=== PATIENT | male | born 1955 | race African-American/Black ===

== ENCOUNTER 2017-03-22 14:02 | Emergency (ER) | payer BC, OTHER ==
[2017-03-22 14:24] VITALS: TEMP 98.5; BMI 36.6
[2017-03-22] MEDS ORDERED: predniSONE 20 MG TABLET (UD) PO ONE (15:48)
[2017-03-22] MEDS ORDERED: IPRATROPIUM BR 0.02% 0.5 MG/2.5 ML VIAL.NEB. NEB ONE ×2 (15:48→16:16)
[2017-03-22] MEDS ORDERED: ALBUTEROL SO4 0.083% IH SOL 2.5 MG/3 ML VIAL.NEB. NEB ONE ×2 (15:48→16:52)
[2017-03-22 16:11] LABS: BASOPHIL 0.7 % (0-2.0); EOSINOPHIL 10.9 % (0-4.5); MCH 29.6 pg (25.7-33.7); MCHC 32.3 g/dl (32.0-35.9); MEAN CELL VOLUME 91.6 fl (80-96); MEAN PLT VOLUME 9.4 fl (7.5-11.1); NEUTROPHILS 49.5 % (42.8-82.8); PLATELET COUNT 157 K/MM3 (134-434); WHITE BLOOD COUNT 4.2 K/mm3 (4.0-10.0)
[2017-03-22] MEDS ORDERED: ALBUTEROL SO4 2.5/IPRATROPIUM 0.5 INH SOL 3 ML VIAL.NEB. NEB ONE (16:16)
[2017-03-22] MEDS ORDERED: predniSONE 10 MG TABLET (UD) ONE (16:16)
[2017-03-22 16:20] LABS: INR 3.48 (0.82-1.09); PROTHROMBIN TIME (PATIENT) 39.3 SEC (9.98-11.88)
[2017-03-22 16:36] LABS: ALBUMIN 3.5 g/dl (3.4-5.0); ANION GAP 10 (8-16); BILIRUBIN,TOTAL 0.6 mg/dL (0.2-1.0); CALCIUM 9.2 mg/dL (8.5-10.1); CO2 26 mmol/L (21-32); COCKROFT - GAULT 142.79; CREATININE 0.9 mg/dL (0.7-1.3); GLUCOSE,RANDOM 92 mg/dL (74-106); MAGNESIUM 2.1 mg/dL (1.8-2.4); SGOT/AST 26 U/L (15-37); SGPT/ALT 30 U/L (12-78); TOT PROT 6.5 g/dl (6.4-8.2)
[2017-03-22 16:40] LABS: ALK PHOS 92 U/L (45-117); TROPONIN I < 0.02 ng/ml (0.00-0.05)
--- NOTE | 2017-03-22 17:15 | PDOC ---
History of Present Illness - General History Source: Patient Exam Limitations: No Limitations <Noel Gayle - Last Filed: 03/22/17 17:22> - General History Source: Patient Exam Limitations: No Limitations - History of Present Illness Initial Comments: 03/22/17 17:39 The patient is a 61 year old male, with a significant past medical history of HTN, HLD, prostate CA, aortic valve replacement 12/2016 (on Coumadin), anemia and asthma who presents to the emergency department with chest congestion and cough for the past 2 weeks. He reports that he has been using albuterol during this time frame, with minimal relief of his symptoms. He states that his cough is dry in nature. The patient denies shortness of breath, headache and dizziness. Denies fever, chills, nausea, vomit, diarrhea and constipation. Allergies: Aspirin, NSAIDS, shrimp, lobsters, crabs Past surgical history: Aortic valve replacement, right total knee replacement Social history: No alcohol, tobacco or drug use reported <Curtis Christiansen - Last Filed: 03/22/17 17:41> - General Chief Complaint: Respiratory Stated Complaint: SOB (ASTHMA) Time Seen by Provider: 03/22/17 15:26 Past History - Past Medical History Anemia: Yes Asthma: Yes Cancer: Yes (prostate) Dementia: No HTN: Yes Hypercholesterolemia: Yes Seizures: No Thyroid Disease: No - Surgical History Neurologic Surgery: No Orthopedic Surgery: Yes (RIGHT TOTAL KNEE 05/12) - Immunization History Immunization Up to Date: Yes - Psycho/Social/Smoking Cessation Hx Anxiety: No Suicidal Ideation: No Smoking Status: No Smoking History: Never smoked Have you smoked in the past 12 months: No Number of Cigarettes Smoked Daily: 0 Information on smoking cessation initiated: No Hx Alcohol Use: No Drug/Substance Use Hx: No Substance Use Type: None Hx Substance Use Treatment: No <Noel Gayle - Last Filed: 03/22/17 17:22> <Curtis Christiansen - Last Filed: 03/22/17 17:41> - Past Medical History Allergies/Adverse Reactions: Allergies Allergy/AdvReac Type Severity Reaction Status Date / Time aspirin Allergy Verified 03/22/17 14:21 NSAIDS (Non-Steroidal Allergy Verified 03/22/17 14:21 Anti-Inflamma crabs Allergy Uncoded 03/22/17 14:21 lobsters Allergy Uncoded 03/22/17 14:21 shrimp Allergy Uncoded 03/22/17 14:21 Home Medications: Ambulatory Orders Atorvastatin Ca [Lipitor] 10 mg PO HS 06/25/14 Tamsulosin HCl [Flomax -] 0.4 mg PO DAILY 10/08/15 Furosemide [Lasix -] 40 mg PO DAILY #30 tablet 06/11/16 Nebivolol [Bystolic -] 10 mg PO DAILY #14 tab 06/11/16 Oxycodone HCl [Roxicodone -] 5 mg PO Q4H PRN #0 tablet MDD 6 tabs 06/11/16 Prednisone [Deltasone -] 40 mg PO BID #6 tablet 06/11/16 Albuterol Sulfate Inhaler - [Ventolin HFA Inhaler -] 1 - 2 inh PO PRN 07/14/16 Budesonide/Formeterol Fumarate [SYMBICORT 160/4.5mcg -] 1 inh PO BID 07/14/16 Albuterol Sulfate Inhaler - [Ventolin HFA Inhaler -] 1 - 2 inh PO Q4H PRN #1 inhaler 03/22/17 Azithromycin 250 mg PO DAILY #4 tablet 03/22/17 Prednisone [Deltasone -] 60 mg PO DAILY #12 tablet 03/22/17 Review of Systems - Review of Systems Able to Perform ROS?: Yes Comments:: 03/22/17 17:40 GENERAL/CONSTITUTIONAL: No fever or chills. No weakness. HEAD, EYES, EARS, NOSE AND THROAT: No change in vision. No ear pain or discharge. No sore throat. CARDIOVASCULAR: No chest pain or shortness of breath RESPIRATORY: (+) Chest congestion, cough. No wheezing, or hemoptysis. GASTROINTESTINAL: No nausea, vomiting, diarrhea or constipation. GENITOURINARY: No dysuria, frequency, or change in urination. MUSCULOSKELETAL: No joint or muscle swelling or pain. No neck or back pain. SKIN: No rash NEUROLOGIC: No headache, vertigo, loss of consciousness, or change in strength/ sensation. ENDOCRINE: No increased thirst. No abnormal weight change HEMATOLOGIC/LYMPHATIC: No anemia, easy bleeding, or history of blood clots. ALLERGIC/IMMUNOLOGIC: No hives or skin allergy. <Curtis Christiansen - Last Filed: 03/22/17 17:41> *Physical Exam - Vital Signs Last Vital Signs Temp Pulse Resp BP Pulse Ox 98.5 F 83 18 152/94 100 03/22/17 14:21 03/22/17 14:21 03/22/17 14:21 03/22/17 14:21 03/22/17 14:21 <Noel Gayle - Last Filed: 03/22/17 17:22> - Vital Signs Last Vital Signs Temp Pulse Resp BP Pulse Ox 98.5 F 83 18 152/94 100 03/22/17 14:21 03/22/17 14:21 03/22/17 14:21 03/22/17 14:21 03/22/17 14:21 - Physical Exam Comments: 03/22/17 17:41 GENERAL: Awake, alert, and fully oriented, in no acute distress HEAD: No signs of trauma, normocephalic, atraumatic EYES: PERRLA, EOMI, sclera anicteric, conjunctiva clear ENT: Auricles normal inspection, hearing grossly normal, nares patent, oropharynx clear without exudates. Moist mucosa NECK: Normal ROM, supple, no lymphadenopathy, JVD, or masses LUNGS: No distress, speaks full sentences, clear to auscultation bilaterally HEART: Regular rate and rhythm, normal S1 and S2, no murmurs, rubs or gallops, peripheral pulses normal and equal bilaterally. ABDOMEN: Soft, nontender, normoactive bowel sounds. No guarding, no rebound. No masses EXTREMITIES: Normal inspection, Normal range of motion, no edema. No clubbing or cyanosis. NEUROLOGICAL: Cranial nerves II through XII grossly intact. Normal speech, normal gait, no focal sensorimotor deficits SKIN: Warm, Dry, normal turgor, no rashes or lesions noted. <Curtis Christiansen - Last Filed: 03/22/17 17:41> Heart Score/ECG Review #1 ECG reviewed & interpreted by me at: 17:00 03/22/17 17:16 NSR 78, no std/prince, normal axis, normal intervals, QTC 437 msec <Noel Gayle - Last Filed: 03/22/17 17:22> ED Treatment Course - LABORATORY CBC & Chemistry Diagram: 03/22/17 15:40 03/22/17 15:40 - ADDITIONAL ORDERS Additional order review: Laboratory Results 03/22/17 03/22/17 03/22/17 15:40 15:40 15:40 INR 3.48 H D Sodium 142 Potassium 4.2 Chloride 106 Carbon Dioxide 26 Anion Gap 10 BUN 9 D Creatinine 0.9 Creat Clearance w eGFR > 60 Random Glucose 92 Calcium 9.2 Magnesium 2.1 Total Bilirubin 0.6 AST 26 ALT 30 D Alkaline Phosphatase 92 D Creatine Kinase 213 Creatine Kinase Index 0.5 CK-MB (CK-2) 1.045 CK-MB (CK-2) Rel Index Cancelled Troponin I < 0.02 B-Natriuretic Peptide 193.08 H Total Protein 6.5 Albumin 3.5 03/22/17 15:40 RBC 4.45 MCV 91.6 MCHC 32.3 RDW 16.0 H MPV 9.4 Neutrophils % 49.5 D Lymphocytes % 29.4 D Monocytes % 9.5 Eosinophils % 10.9 H D Basophils % 0.7 - RADIOLOGY Radiology Studies Ordered: Category Date Time Status CHEST X-RAY PORTABLE* [RAD] Stat Radiology 03/22/17 15:45 Completed - Medications Given in the ED: ED Medications Discontinued Medications Generic Name Dose Route Start Last Admin Trade Name Freq PRN Reason Stop Dose Admin Albuterol Sulfate 1 amp 03/22/17 15:48 03/22/17 15:40 Ventolin 0.083% Nebulizer Soln - NEB 03/22/17 15:49 1 amp ONCE ONE Administration Ipratropium [place] 1 amp 03/22/17 15:48 03/22/17 15:45 Atrovent 0.02% Nebulizer - NEB 03/22/17 15:49 1 amp ONCE ONE Administration Prednisone 60 mg 03/22/17 15:48 03/22/17 15:48 Deltasone - PO 03/22/17 15:49 60 mg ONCE ONE Administration <Noel Gayle - Last Filed: 03/22/17 17:22> - LABORATORY CBC & Chemistry Diagram: 03/22/17 15:40 03/22/17 15:40 - ADDITIONAL ORDERS Additional order review: Laboratory Results 03/22/17 03/22/17 03/22/17 15:40 15:40 15:40 INR 3.48 H D Sodium 142 Potassium 4.2 Chloride 106 Carbon Dioxide 26 Anion Gap 10 BUN 9 D Creatinine 0.9 Creat Clearance w eGFR > 60 Random Glucose 92 Calcium 9.2 Magnesium 2.1 Total Bilirubin 0.6 AST 26 ALT 30 D Alkaline Phosphatase 92 D Creatine Kinase 213 Creatine Kinase Index 0.5 CK-MB (CK-2) 1.045 CK-MB (CK-2) Rel Index Cancelled Troponin I < 0.02 B-Natriuretic Peptide 193.08 H Total Protein 6.5 Albumin 3.5 03/22/17 15:40 RBC 4.45 MCV 91.6 MCHC 32.3 RDW 16.0 H MPV 9.4 Neutrophils % 49.5 D Lymphocytes % 29.4 D Monocytes % 9.5 Eosinophils % 10.9 H D Basophils % 0.7 - Medications Given in the ED: ED Medications Discontinued Medications Generic Name Dose Route Start Last Admin Trade Name Freq PRN Reason Stop Dose Admin Albuterol Sulfate 1 amp 03/22/17 15:48 03/22/17 15:40 Ventolin 0.083% Nebulizer Soln - NEB 03/22/17 15:49 1 amp ONCE ONE Administration Albuterol Sulfate 1 amp 03/22/17 16:52 03/22/17 17:19 Ventolin 0.083% Nebulizer Soln - NEB 03/22/17 16:53 1 amp ONCE ONE Administration Azithromycin 500 mg 03/22/17 17:18 03/22/17 17:19 Zithromax - PO 03/22/17 17:19 500 mg ONCE ONE Administration Ipratropium [place] 1 amp 03/22/17 15:48 03/22/17 15:45 Atrovent 0.02% Nebulizer - NEB 03/22/17 15:49 1 amp ONCE ONE Administration Prednisone 60 mg 03/22/17 15:48 03/22/17 15:48 Deltasone - PO 03/22/17 15:49 60 mg ONCE ONE Administration <Curtis Christiansen - Last Filed: 03/22/17 17:41> Medical Decision Making - Medical Decision Making 03/22/17 17:14 A portion of this note was documented by scribe services under my direction. I have reviewed the details of the note, within reason, and agree with the documentation with the following case summary and management plan written by me. Patient treated in the ED. Nursing notes are reviewed and incorporated into the medical decision-making. Vital signs reviewed. Peripheral IV access obtained by the nurse, laboratory studies are drawn and sent, reviewed and interpreted by myself. Vital Signs Temp Pulse Resp BP Pulse Ox 98.5 F 83 18 152/94 100 03/22/17 14:21 03/22/17 14:21 03/22/17 14:21 03/22/17 14:21 03/22/17 14:21 61-year-old male with past medical history of aortic valve replacement performed in December 2016 at [facility] with no complications, on Coumadin presents with chest congestion, cough for 2 weeks. Denies fevers or chills. Stated he's been using his albuterol with minimal relief. Stated that persistent wheezing was not going away. Came into the ED for evaluation. Patient appears to be an asthma exacerbation. Patient was given nebulizers and prednisone. Patient's chest x-ray reviewed and Dr. Green infiltrate. Labs reviewed and demonstrates a negative BNP. Negative troponin. EKG is reassuring. CBC, BMP 03/22/17 15:40 03/22/17 15:40 CMP Sodium 142 mmol/L (136-145) 03/22/17 15:40 Potassium 4.2 mmol/L (3.5-5.1) 03/22/17 15:40 Chloride 106 mmol/L (98-107) 03/22/17 15:40 Carbon Dioxide 26 mmol/L (21-32) 03/22/17 15:40 Anion Gap 10 (8-16) 03/22/17 15:40 BUN 9 mg/dL (7-18) D 03/22/17 15:40 Creatinine 0.9 mg/dL (0.7-1.3) 03/22/17 15:40 Creat Clearance w eGFR > 60 (>60) 03/22/17 15:40 Random Glucose 92 mg/dL (74-106) 03/22/17 15:40 Calcium 9.2 mg/dL (8.5-10.1) 03/22/17 15:40 Magnesium 2.1 mg/dL (1.8-2.4) 03/22/17 15:40 Total Bilirubin 0.6 mg/dL (0.2-1.0) 03/22/17 15:40 AST 26 U/L (15-37) 03/22/17 15:40 ALT 30 U/L (12-78) D 03/22/17 15:40 Alkaline Phosphatase 92 U/L (45-117) D 03/22/17 15:40 Creatine Kinase 213 IU/L (39-308) 03/22/17 15:40 Creatine Kinase Index 0.5 % (0.0-5.0) 03/22/17 15:40 CK-MB (CK-2) 1.045 ng/ml (0.5-3.6) 03/22/17 15:40 CK-MB (CK-2) Rel Index Cancelled 03/22/17 15:40 Troponin I < 0.02 ng/ml (0.00-0.05) 03/22/17 15:40 B-Natriuretic Peptide 193.08 pg/ml (5-125) H 03/22/17 15:40 Total Protein 6.5 g/dl (6.4-8.2) 03/22/17 15:40 Albumin 3.5 g/dl (3.4-5.0) 03/22/17 15:40 Chest xray reviewed. No infiltrate. Will treat as bronchitis and asthma exacerbation. Patient reports feeling better.] Will discharge with azithromycin and prednisone and albuterol Pt verbalizes understanding and agrees with plan. I discussed the physical exam findings, ancillary test results and final diagnoses with the patient. I answered all of the patient's questions. The patient was satisfied with the care received and felt comfortable with the discharge plan and treatment plan. The patient will call their primary care physician within 24 hours to arrange follow-up and will return to the Emergency Department with any new, persistant or worsening symptoms. <Noel Gayle - Last Filed: 03/22/17 17:22> *DC/Admit/Observation/Transfer - Discharge Dispostion Admit: No <Noel Gayle - Last Filed: 03/22/17 17:22> - Attestations Scribe Attestion: 03/22/17 17:41 Documentation prepared by Curtis Christiansen, acting as medical or surgical instrument maker for Noel Gayle MD <Curtis Christiansen - Last Filed: 03/22/17 17:41> Diagnosis at time of Disposition: Bronchitis, Asthma attack - Discharge Dispostion Disposition: HOME Condition at time of disposition: Stable - Prescriptions Prescriptions: Azithromycin 250 mg PO DAILY #4 tablet Prednisone [Deltasone -] 60 mg PO DAILY #12 tablet Albuterol Sulfate Inhaler - [Ventolin HFA Inhaler -] 1 - 2 inh PO Q4H PRN #1 inhaler PRN Reason: Wheezing - Referrals Referrals: Claudio Dias MD [Primary Care Provider] - - Patient Instructions Printed Discharge Instructions: DI for Acute Bronchitis, DI for Asthma -- Adult Additional Instructions: Please take 2 puffs of albuterol every 4 hours needed for wheezing. Take the azithromycin as prescribed daily for your bronchitis. Please take the steroids as prescribed.
[2017-03-22] MEDS ORDERED: AZITHROMYCIN 250 MG TABLET (FP) PO ONE (17:18)
[2017-03-22] MEDS ORDERED: AZITHROMYCIN 250 MG TABLET (FP) ONE (17:52)
[2017-03-22 17:55] VITALS: BP 144/80; PULSE 90
--- NOTE | 2017-03-23 11:24 | EKG ---
Test Reason : Blood Pressure : / mmHG Vent. Rate : 078 BPM Atrial Rate : 078 BPM P-R Int : 196 ms QRS Dur : 100 ms QT Int : 384 ms P-R-T Axes : 059 -17 046 degrees QTc Int : 437 ms SINUS RHYTHM WITH PREMATURE ATRIAL COMPLEXES POSSIBLE LEFT ATRIAL ENLARGEMENT BORDERLINE ECG WHEN COMPARED WITH ECG OF 08-JUN-2016 21:06, PREMATURE ATRIAL COMPLEXES ARE NOW PRESENT Confirmed by CELSA PAIGE, IMANI ([id number]) on 03/23/2017 11:24:28 AM Referred By: Confirmed By:IMANI STEEN MD
== END 2017-03-22 17:55 | disposition home or self-care (01) ==
LOC: JER 14:02
PROC: 3E0F7GC Introduction of Other Therapeutic Substance into Respiratory Tract, Via Natural or Artificial Opening (ICD-10-PCS; principal; 2017-03-22)
PROC: 3E0F7GC Introduction of Other Therapeutic Substance into Respiratory Tract, Via Natural or Artificial Opening (ICD-10-PCS; 2017-03-22)
PROC: 3E0F7GC Introduction of Other Therapeutic Substance into Respiratory Tract, Via Natural or Artificial Opening (ICD-10-PCS; 2017-03-22)
DX: J45.901 Unspecified asthma with (acute) exacerbation (principal); J40 Bronchitis, not specified as acute or chronic; I10 Essential (primary) hypertension; E78.00 Pure hypercholesterolemia, unspecified; Z85.46 Personal history of malignant neoplasm of prostate; Z95.4 Presence of other heart-valve replacement
CPT/HCPCS: 36415; 71010-TC; 80053; 82550; 82553; 83735; 83880; 84484; 85025; 85610; 93005; 93010; 99282-25

== ENCOUNTER 2017-04-16 12:35 | Emergency (ER) | payer BC, OTHER ==
[2017-04-16 12:47] VITALS: BP 132/88; PULSE 92; TEMP 98.2; BMI 34.5
--- NOTE | 2017-04-16 13:16 | PDOC ---
History of Present Illness - General Chief Complaint: Pain, Acute Stated Complaint: ABD PAIN Time Seen by Provider: 04/16/17 13:05 History Source: Patient Exam Limitations: No Limitations - History of Present Illness Travel History: No Initial Comments: 04/16/17 13:14 61 yr male with c/o abd pain and diarrhea since drinking a chocolate milkshake on Wednesday. Pt felt nausea no vomiting, has had diarrhea since then, Pt's last BM this am, states the frequency is decreasing. no fever no chills no back pain. Timing/Duration: reports: other (improving) Quality: reports: mild, cramping Abdominal Pain Onset Location: reports: generalized abdomen Pain Radiation: reports: no radiation Past History - Past Medical History Allergies/Adverse Reactions: Allergies Allergy/AdvReac Type Severity Reaction Status Date / Time aspirin Allergy Verified 04/16/17 12:47 NSAIDS (Non-Steroidal Allergy Verified 04/16/17 12:47 Anti-Inflamma crabs Allergy Uncoded 04/16/17 12:47 lobsters Allergy Uncoded 04/16/17 12:47 shrimp Allergy Uncoded 04/16/17 12:47 Home Medications: Ambulatory Orders Atorvastatin Ca [Lipitor] 10 mg PO HS 06/25/14 Tamsulosin HCl [Flomax -] 0.4 mg PO DAILY 10/08/15 Furosemide [Lasix -] 40 mg PO DAILY #30 tablet 06/11/16 Nebivolol [Bystolic -] 10 mg PO DAILY #14 tab 06/11/16 Oxycodone HCl [Roxicodone -] 5 mg PO Q4H PRN #0 tablet MDD 6 tabs 06/11/16 Prednisone [Deltasone -] 40 mg PO BID #6 tablet 06/11/16 Albuterol Sulfate Inhaler - [Ventolin HFA Inhaler -] 1 - 2 inh PO PRN 07/14/16 Budesonide/Formeterol Fumarate [SYMBICORT 160/4.5mcg -] 1 inh PO BID 07/14/16 Albuterol Sulfate Inhaler - [Ventolin HFA Inhaler -] 1 - 2 inh PO Q4H PRN #1 inhaler 03/22/17 Azithromycin 250 mg PO DAILY #4 tablet 03/22/17 Prednisone [Deltasone -] 60 mg PO DAILY #12 tablet 03/22/17 Anemia: Yes Asthma: Yes Cancer: Yes (prostate) Dementia: No GI Disorders: Yes (peptic ulcer, GERD) HTN: Yes Hypercholesterolemia: Yes Seizures: No Thyroid Disease: No - Surgical History Cardiac Surgery: Yes (AORTIC VALVE) Neurologic Surgery: No Orthopedic Surgery: Yes (RIGHT TOTAL KNEE 05/12) - Immunization History Immunization Up to Date: Yes - Psycho/Social/Smoking Cessation Hx Anxiety: No Suicidal Ideation: No Smoking Status: No Smoking History: Never smoked Have you smoked in the past 12 months: No Number of Cigarettes Smoked Daily: 0 Hx Alcohol Use: Yes (ONCE A WEEK) Drug/Substance Use Hx: No Substance Use Type: None Hx Substance Use Treatment: No Abd/GI Specific PMHX - Complaint Specific PMHX Colitis: No Diverticulitis: No Gall Bladder Disease: No GERD: No Hepatitis: No Irritable Bowel Synd (IBS): No Pancreatitis: No GI Ulcer Disease: No Review of Systems - Review of Systems Able to Perform ROS?: Yes Is the patient limited Ethiopian proficient: No Constitutional: No: Symptoms Reported HEENTM: No: Symptoms Reported Respiratory: No: Symptoms reported Cardiac (ROS): No: Symptoms Reported ABD/GI: Yes: See HPI, Diarrhea. No: Symptoms Reported : No: Symptoms Reported Musculoskeletal: No: Symptoms Reported *Physical Exam - Vital Signs Last Vital Signs Temp Pulse Resp BP Pulse Ox 98.2 F 92 H 18 132/88 95 04/16/17 12:44 04/16/17 12:44 04/16/17 12:44 04/16/17 12:44 04/16/17 12:44 - Physical Exam General Appearance: Yes: Nourished, Appropriately Dressed HEENT: positive: EOMI, EARL, Normal ENT Inspection, TMs Normal, Pharynx Normal Neck: positive: Supple. negative: Tender Respiratory/Chest: positive: Lungs Clear, Normal Breath Sounds Cardiovascular: positive: Regular Rhythm, Regular Rate Gastrointestinal/Abdominal: positive: Soft, Increased Bowel Sounds. negative: Tender Rectal Exam: positive: deferred, other (pt refused ) Musculoskeletal: positive: Normal Inspection Extremity: positive: Normal Capillary Refill, Normal Inspection, Normal Range of Motion Integumentary: positive: Normal Color, Dry, Warm Neurologic: positive: Fully Oriented, Alert, Normal Mood/Affect, Normal Response , Motor Strength /5 ED Treatment Course - LABORATORY CBC & Chemistry Diagram: 04/16/17 14:20 04/16/17 14:20 Medical Decision Making - Medical Decision Making 04/16/17 13:34 cc: afebrile noo vomiting c/o diarrhea since wednesday after drinking milkshake pt denies blood in stool abd pain with bowel movements will check labs,, abd is non tender 04/16/17 15:08 labs are reviewed. noted INR to be 3.17 , pt states that is where his INR should be. between 3.0 and 3.7 discussed with patient and he will follow up with his PMD on Wednesday regarding follow up 04/16/17 15:12 04/16/17 15:26 pt has no diarrhea while in ER I have discussed bland clear diet as tolerated pt understands and agrees. 04/16/17 16:41 *DC/Admit/Observation/Transfer Diagnosis at time of Disposition: Diarrhea Qualifiers: Diarrhea type: unspecified type Qualified Code(s): R19.7 - Diarrhea, unspecified - Discharge Dispostion Disposition: HOME Condition at time of disposition: Improved - Referrals Referrals: Claudio Dias MD [Primary Care Provider] - - Patient Instructions Additional Instructions: follow with on Wednesday for follow up clear fluids as tolerated jello, soup, broth, ice pops, then slowly advance to bland diet white rice, bannana, toast you can take maalox as directed (over the counter) for pain or discomfort
[2017-04-16] MEDS ORDERED: FAMOTIDINE 20 MG/50 ML IVPB 50 ML IVPB ONE ×2 (13:17→14:31)
[2017-04-16] MEDS ORDERED: SODIUM CHLORIDE 1,000 ML IV STA (13:17)
[2017-04-16 14:34] LABS: BASOPHIL 0.3 % (0-2.0); EOSINOPHIL 6.1 % (0-4.5); MCH 29.6 pg (25.7-33.7); MCHC 32.5 g/dl (32.0-35.9); MEAN PLT VOLUME 9.2 fl (7.5-11.1); NEUTROPHILS 72.7 % (42.8-82.8); PLATELET COUNT 154 K/MM3 (134-434); WHITE BLOOD COUNT 6.9 K/mm3 (4.0-10.0)
[2017-04-16 14:47] LABS: INR 3.17 (0.82-1.09); PROTHROMBIN TIME (PATIENT) 35.7 SEC (9.98-11.88)
[2017-04-16 14:56] LABS: ALBUMIN 3.4 g/dl (3.4-5.0); ANION GAP 8 (8-16); CALCIUM 9.1 mg/dL (8.5-10.1); CO2 25 mmol/L (21-32); CREATININE 0.9 mg/dL (0.7-1.3); GLUCOSE,RANDOM 89 mg/dL (74-106); SGPT/ALT 30 U/L (12-78)
[2017-04-16 14:58] LABS: ALK PHOS 89 U/L (45-117); BILIRUBIN,TOTAL 0.9 mg/dL (0.2-1.0)
[2017-04-16 15:02] LABS: SGOT/AST 48 U/L (15-37)
== END 2017-04-16 16:41 | disposition home or self-care (01) ==
LOC: JER 12:35
PROC: 3E033GC Introduction of Other Therapeutic Substance into Peripheral Vein, Percutaneous Approach (ICD-10-PCS; principal; 2017-04-16)
DX: R19.7 Diarrhea, unspecified (principal); D64.9 Anemia, unspecified; J45.909 Unspecified asthma, uncomplicated; K21.9 Gastro-esophageal reflux disease without esophagitis; K27.9 Peptic ulcer, site unspecified, unspecified as acute or chronic, without hemorrhage or perforation; I10 Essential (primary) hypertension; E78.00 Pure hypercholesterolemia, unspecified; Z85.46 Personal history of malignant neoplasm of prostate
CPT/HCPCS: 36415; 80053; 85025; 85610; 99282-25

== ENCOUNTER 2017-07-21 14:21 | Emergency (ER) | payer BC, OTHER ==
[2017-07-21 14:26] VITALS: PULSE 82; TEMP 98.6; BMI 36.7
--- NOTE | 2017-07-21 17:38 | PDOC ---
History of Present Illness <Edgar Garcia - Last Filed: 07/21/17 21:46> - General History Source: Patient Exam Limitations: No Limitations - History of Present Illness Initial Comments: 07/21/17 18:40 The patient is a 61 year old male, with a significant past medical history aortic aneurysm(s/p aortic valve replacement, on Coumadin), hypertension, hyperlipidemia, GERD, prostate cancer, asthma, anemia, and MRSA, who presents to the emergency department with diffuse joint pain and headache for approximately 2 days. The patient reports he was driving home from work yesterday, when he first noted his neck became tense. Patient reports several hours later he developed a similar tension in his shoulders and back. Patient reports associated headache and hip pain. Patient rates his overall pain a 4/10 and reports it is constant. Patient denies any recent fever, chills, cough, headache, or dizziness. Patient denies any recent hikes, gardening, or trips to the park. Patient reports he had a recent MRSA flare to his right glute, and states he is concerned the metal replacements he has are not compatible with MRSA. Patient reports associated chest discomfort which he describes as a pressure similar to when he lifts heavy objects, but reports he has done no recent heavy lifting or trauma. Patient reports his chest pain is exacerbated with arm movements. He denies any associated shortness of breath, diaphoresis, palpitations, or lower extremity edema. The patient denies any abdominal pain, nausea, vomiting, diarrhea, or constipation. He denies any dysuria, hematuria, frequency, or urgency. Allergies: Aspirin, NSAIDS Past Surgical History: Bilateral knee replacement, Aortic valve replacement Social History: Occasional alcohol drinker. Denies any recreational drug use. Non smoker. PCP: Dr. Claudio Dias <Hilario Ross - Last Filed: 07/22/17 01:58> - General Chief Complaint: Pain Stated Complaint: PAIN Time Seen by Provider: 07/21/17 17:16 Past History - Past Medical History Anemia: No Asthma: Yes Cancer: Yes (prostate) Cardiac Disorders: Yes Dementia: No GI Disorders: Yes (peptic ulcer, GERD) HTN: Yes Hypercholesterolemia: Yes Seizures: No Thyroid Disease: No Other medical history: MRSA - Surgical History Cardiac Surgery: Yes (AORTIC VALVE) Neurologic Surgery: No Orthopedic Surgery: Yes (RIGHT TOTAL KNEE 05/12) - Immunization History Immunization Up to Date: Yes - Suicide/Smoking/Psychosocial Hx Smoking Status: No Smoking History: Never smoked Have you smoked in the past 12 months: No Number of Cigarettes Smoked Daily: 0 Hx Alcohol Use: Yes (SOCIAL) Drug/Substance Use Hx: No Substance Use Type: None Hx Substance Use Treatment: No <Edgar Garcia - Last Filed: 07/21/17 21:46> <Hilario Ross - Last Filed: 07/22/17 01:58> - Past Medical History Allergies/Adverse Reactions: Allergies Allergy/AdvReac Type Severity Reaction Status Date / Time aspirin Allergy Verified 07/21/17 14:26 NSAIDS (Non-Steroidal Allergy Verified 07/21/17 14:26 Anti-Inflamma crabs Allergy Uncoded 07/21/17 14:26 lobsters Allergy Uncoded 07/21/17 14:26 shrimp Allergy Uncoded 07/21/17 14:26 Home Medications: Ambulatory Orders Atorvastatin Ca [Lipitor] 10 mg PO HS 06/25/14 Furosemide [Lasix -] 40 mg PO DAILY #30 tablet 06/11/16 Oxycodone HCl [Roxicodone -] 5 mg PO Q4H PRN #0 tablet MDD 6 tabs 06/11/16 Prednisone [Deltasone -] 40 mg PO BID #6 tablet 06/11/16 Albuterol Sulfate Inhaler - [Ventolin HFA Inhaler -] 1 - 2 inh PO Q4H PRN #1 inhaler 03/22/17 Gentamicin 0.1% Ointment [Garamycin 0.1% Ointment -] 1 applic TP BID #1 tube Methocarbamol [Robaxin-750] 750 mg PO BID #20 tablet 07/21/17 Review of Systems - Review of Systems Able to Perform ROS?: Yes Comments:: 07/21/17 18:41 CONSTITUTIONAL: No fever, no chills, no fatigue EYES: No visual changes ENT: No ear pain, no sore throat CARDIOVASCULAR: Yes: chest pressure. No palpitations RESPIRATORY: No cough, no SOB GI: No abdominal pain, no nausea, no vomiting, no constipation, no diarrhea GENITOURINARY: No dysuria, no frequency, no hematuria MUSCULOSKELETAL: Yes: joint pain, neck/shoulder/back and hip pain. No myalgias SKIN: Yes: MRSA flare to the right glute. NEURO: No headache <Hilario Ross - Last Filed: 07/22/17 01:58> *Physical Exam - Vital Signs Last Vital Signs Temp Pulse Resp BP Pulse Ox 98.6 F 82 20 159/93 95 07/21/17 14:22 07/21/17 14:22 07/21/17 14:22 07/21/17 14:22 07/21/17 14:22 <Jo-Ann Garciais - Last Filed: 07/21/17 21:46> - Vital Signs Last Vital Signs Temp Pulse Resp BP Pulse Ox 98.6 F 82 20 159/93 95 07/21/17 14:22 07/21/17 14:22 07/21/17 14:22 07/21/17 14:22 07/21/17 14:22 - Physical Exam Comments: 07/21/17 18:42 CONSTITUTIONAL: Well-appearing; well-nourished; in no apparent distress HEAD: Normocephalic; atraumatic EYES: PERRL; EOM intact ENMT: External appears normal; normal oropharynx NECK: Supple; non-tender; no cervical lymphadenopathy CARD: Metallic heart valve sounds. Normal S1, S2; no murmurs, rubs, or gallops RESP: Normal chest excursion with respiration; breath sounds clear and equal bilaterally; no wheezes, rhonchi, or rales ABD: Soft, non-distended; non-tender; no palpable organomegaly, no palpable hernias EXT: Normal ROM in all four extremities; non-tender to palpation; distal pulses intact SKIN: Punctate area of induration to the right gluteal area. Patchy pigmented lesions to the upper arm bilaterally. Otherwise warm, dry, no rash NEURO: No focal neurological deficiencies. <Hilario Ross - Last Filed: 07/22/17 01:58> Heart Score/ECG Review - ECG Intrepretation Comment:: 07/21/17 21:17 Vent rate: 69 bpm IMPRESSION: Sinus rhythm with premature atrial complexes. Right superior axis deviation. Nonspecific ST and T wave abnormality. <Hilario Ross - Last Filed: 07/22/17 01:58> ED Treatment Course - LABORATORY CBC & Chemistry Diagram: 07/21/17 18:31 07/21/17 18:31 <Edgar Garcia - Last Filed: 07/21/17 21:46> - LABORATORY CBC & Chemistry Diagram: 07/21/17 18:31 07/21/17 18:31 - Medications Given in the ED: ED Medications Discontinued Medications Generic Name Dose Route Start Last Admin Trade Name Iveth PRN Reason Stop Dose Admin Methocarbamol 500 mg 07/21/17 18:14 07/21/17 18:27 Robaxin - PO 07/21/17 18:15 500 mg ONCE ONE Administration <Hilario Ross - Last Filed: 07/22/17 01:58> Medical Decision Making - Medical Decision Making 07/21/17 21:39 patient is a -old male with history of aortic valv who presents bilateral neck and shoulder and bilateral hip discomfort, atypical pain going across his chest which is exacerbated by arm movements and a worsening gluteal lesion. In the ER , pats awake and alert, afebrile, without evidence of meningi Full range of motion is noted to upper and lower extremities. There is no evidence of petechial rash. There are no signs of endocarditis. EKG shows no evidence of acute ischemia. ESR and CRP and minimally elevated. Patient's gluteal lesion is minimally indurated without evidence of fluctuance. I do not suspect an acute infectious process at this time. Endocarditis or osteomyelitis or infectious arthritis highly unlikely. Will obtain Lyme titer with reflex. We'll administer Robaxin. Will discharge with outpatient follow-up. <Edgar Garcia - Last Filed: 07/21/17 21:46> *DC/Admit/Observation/Transfer - Attestations Physician Attestion: 07/21/17 21:38 The documentation was prepared by the scribe under my direct supervision. I have reviewed the documentation which correctly represents the findings, medical decision-making and critical action taken by me. <Edgar Garcia - Last Filed: 07/21/17 21:46> - Attestations Scribe Attestion: 07/21/17 18:42 Documentation prepared by Hilario Ross, acting as medical administrative technician for Edgar Garcia MD. <Hilario Ross - Last Filed: 07/22/17 01:58> Diagnosis at time of Disposition: Abscess of buttock, Atypical chest pain Joint pain Qualifiers: Joint pain location: unspecified Qualified Code(s): M25.50 - Pain in unspecified joint - Discharge Dispostion Disposition: HOME Condition at time of disposition: Stable - Prescriptions Prescriptions: Gentamicin 0.1% Ointment [Garamycin 0.1% Ointment -] 1 applic TP BID #1 tube Methocarbamol [Robaxin-750] 750 mg PO BID #20 tablet - Referrals Referrals: Claudio Dias MD [Primary Care Provider] - - Patient Instructions Printed Discharge Instructions: DI for Arthralgia, DI for Atypical Chest Pain, DI for Anal Abscess - Post Discharge Activity Forms/Work/School Notes: Back to Work
[2017-07-21] MEDS ORDERED: METHOCARBAMOL 500 MG TABLET PO ONE (18:14)
[2017-07-21] MEDS ORDERED: METHOCARBAMOL 500 MG TABLET ONE (18:27)
[2017-07-21 18:58] LABS: BASOPHIL 0.5 % (0-2.0); EOSINOPHIL 6.4 % (0-4.5); MCH 29.6 pg (25.7-33.7); MEAN CELL VOLUME 89.7 fl (80-96); MEAN PLT VOLUME 9.3 fl (7.5-11.1); NEUTROPHILS 60.5 % (42.8-82.8); PLATELET COUNT 171 K/MM3 (134-434); WHITE BLOOD COUNT 5.7 K/mm3 (4.0-10.0)
[2017-07-21 19:08] LABS: INR 3.11 (0.82-1.09)
[2017-07-21 20:09] LABS: ALBUMIN 3.8 g/dl (3.4-5.0); ALK PHOS 87 U/L (45-117); ANION GAP 12 (8-16); BILIRUBIN,TOTAL 0.9 mg/dL (0.2-1.0); C-REACTIVE PROTEIN 3.4 MG/DL (0.00-0.3); CALCIUM 9.6 mg/dL (8.5-10.1); CO2 27 mmol/L (21-32); GLUCOSE,RANDOM 89 mg/dL (74-106); SGOT/AST 27 U/L (15-37); SGPT/ALT 37 U/L (12-78); TOT PROT 6.9 g/dl (6.4-8.2)
[2017-07-21 20:13] LABS: ERYTHROCYTE SEDIMENTATION RATE 30 mm/hr (0-20)
[2017-07-21 21:34] VITALS: BP 139/78
--- NOTE | 2017-07-22 14:28 | EKG ---
Test Reason : Blood Pressure : / mmHG Vent. Rate : 069 BPM Atrial Rate : 069 BPM P-R Int : 188 ms QRS Dur : 112 ms QT Int : 408 ms P-R-T Axes : 000 212 148 degrees QTc Int : 437 ms SINUS RHYTHM WITH PREMATURE ATRIAL COMPLEXES RIGHT SUPERIOR AXIS DEVIATION NONSPECIFIC ST AND T WAVE ABNORMALITY ABNORMAL ECG WHEN COMPARED WITH ECG OF 22-MAR-2017 16:57, QRS AXIS SHIFTED LEFT NON-SPECIFIC CHANGE IN ST SEGMENT IN LATERAL LEADS Confirmed by HUSAM BECK MD ([id number]) on 07/22/2017 2:28:29 PM Referred By: Confirmed By:HUSAM BECK MD
== END 2017-07-21 21:53 | disposition home or self-care (01) ==
LOC: JER 14:21
DX: M25.50 Pain in unspecified joint (principal); R07.89 Other chest pain; L02.31 Cutaneous abscess of buttock; Z79.01 Long term (current) use of anticoagulants; Z95.2 Presence of prosthetic heart valve; K21.9 Gastro-esophageal reflux disease without esophagitis; J45.909 Unspecified asthma, uncomplicated; Z86.14 Personal history of Methicillin resistant Staphylococcus aureus infection; E78.5 Hyperlipidemia, unspecified; I10 Essential (primary) hypertension; Z96.651 Presence of right artificial knee joint
CPT/HCPCS: 36415; 80053; 85025; 85610; 85651; 86140; 86618; 93005; 93010; 99282-25

== ENCOUNTER 2017-08-26 17:08 | Emergency (ER) | payer BC, OTHER ==
[2017-08-26 17:33] VITALS: BP 150/87; PULSE 86; TEMP 99; BMI 34.8
--- NOTE | 2017-08-26 18:10 | PDOC ---
"History of Present Illness - General History Source: Patient Exam Limitations: No Limitations - History of Present Illness Initial Comments: 08/26/17 17:59 Patient is a 61-year-old male, history of asthma, prostate CA, cardiac disease, peptic ulcer, MRSA, aortic valve, HTN, high cholesterol. Patient presents today for evaluation of redness and swelling to right foot reports getting off the bus yesterday and his right foot mildly twisted. Woke up today with redness and pain to generalized foot, denies any fever, redness is localized to foot with no streaking. Allergies: No known allergies Medications: See medication list Family History: Non-contributory Social History: Denies smoking, alcohol use, or IVDU Review of Systems GENERAL/CONSTITUTIONAL: No fever or chills. No weakness. No weight change. HEAD, EYES, EARS, NOSE AND THROAT: No change in vision. No ear pain or discharge. No sore throat. CARDIOVASCULAR: No chest pain or shortness of breath. RESPIRATORY: No cough, wheezing, or hemoptysis. GASTROINTESTINAL: No nausea, vomiting, diarrhea or constipation. No rectal bleeding. GENITOURINARY: No dysuria, frequency, or change in urination. MUSCULOSKELETAL: No joint or muscle swelling or pain. No neck or back pain. SKIN: Erythema to foot with no evidence of cellulitis, no streaking NEUROLOGIC: No headache, vertigo, loss of consciousness, or loss of sensation. PSYCHIATRIC: No depression or anxiety. ENDOCRINE: No increased thirst. No abnormal weight change. HEMATOLOGIC/LYMPHATIC: No anemia, easy bleeding, or history of blood clots. ALLERGIC/IMMUNOLOGIC: No hives or skin allergy. No latex allergy. Physical Exam: GENERAL: The patient is awake, alert, and fully oriented, in no acute distress. HEAD: Normal with no signs of trauma. EYES: Pupils equal, round and reactive to light, extraocular movements intact, sclera anicteric, conjunctiva clear. ENT: Ears normal, nares patent, oropharynx clear without exudates. Moist mucous membranes. No uvula deviation NECK: Normal range of motion, supple without lymphadenopathy, JVD, or masses. LUNGS: Breath sounds equal, clear to auscultation bilaterally. No wheezes, and no crackles. HEART: Regular rate and rhythm, normal S1 and S2 without murmur, rub or gallop. ABDOMEN: Soft, nontender, normoactive bowel sounds. No guarding, no rebound. No masses. No bruising or abrasions MUSCULOSKELETAL: Normal range of motion, no edema. No clubbing or cyanosis. No cords, erythema, or tenderness. No CVA Tenderness with fist. NEUROLOGICAL: Cranial nerves II through XII grossly intact. Normal speech, normal gait. SKIN: Warm, Dry, normal turgor, no rashes or lesions noted. Erythema to generalized foot with no pitting edema,+ warmth, no streaking, compromised skin to bilateral feet with dry ulcerations, dark pigmentation. <Beth Smith - Last Filed: 08/26/17 20:01> <Miryam Decker - Last Filed: 08/26/17 21:51> - General Chief Complaint: Injury Stated Complaint: ANKLE SWELLING Time Seen by Provider: 08/26/17 17:35 Past History - Past Medical History Anemia: No Asthma: Yes Cancer: Yes (prostate) Cardiac Disorders: Yes Dementia: No GI Disorders: Yes (peptic ulcer, GERD) HTN: Yes Hypercholesterolemia: Yes Seizures: No Thyroid Disease: No - Surgical History Cardiac Surgery: Yes (AORTIC VALVE) Neurologic Surgery: No Orthopedic Surgery: Yes (RIGHT TOTAL KNEE 05/12) - Immunization History Immunization Up to Date: Yes - Suicide/Smoking/Psychosocial Hx Smoking Status: No Smoking History: Never smoked Have you smoked in the past 12 months: No Number of Cigarettes Smoked Daily: 0 Hx Alcohol Use: No Drug/Substance Use Hx: No Substance Use Type: None Hx Substance Use Treatment: No <Beth Smith - Last Filed: 08/26/17 20:01> <Miryam Decker - Last Filed: 08/26/17 21:51> - Past Medical History Allergies/Adverse Reactions: Allergies Allergy/AdvReac Type Severity Reaction Status Date / Time aspirin Allergy Verified 08/26/17 17:30 NSAIDS (Non-Steroidal Allergy Verified 08/26/17 17:30 Anti-Inflamma crabs Allergy Uncoded 08/26/17 17:30 lobsters Allergy Uncoded 08/26/17 17:30 shrimp Allergy Uncoded 08/26/17 17:30 Home Medications: Ambulatory Orders Atorvastatin Ca [Lipitor] 10 mg PO HS 06/25/14 Furosemide [Lasix -] 40 mg PO DAILY #30 tablet 06/11/16 Oxycodone HCl [Roxicodone -] 5 mg PO Q4H PRN #0 tablet MDD 6 tabs 06/11/16 Prednisone [Deltasone -] 40 mg PO BID #6 tablet 06/11/16 Albuterol Sulfate Inhaler - [Ventolin HFA Inhaler -] 1 - 2 inh PO Q4H PRN #1 inhaler 03/22/17 Methocarbamol [Robaxin-750] 750 mg PO BID #20 tablet 07/21/17 Clindamycin [Cleocin -] 300 mg PO TID #30 capsule 08/26/17 Warfarin Sodium 10 mg PO ASDIR 08/26/17 *Physical Exam - Vital Signs Last Vital Signs Temp Pulse Resp BP Pulse Ox 99 F 86 20 150/87 97 08/26/17 17:31 08/26/17 17:31 08/26/17 17:31 08/26/17 17:31 08/26/17 17:31 <Beth Smith - Last Filed: 08/26/17 20:01> - Vital Signs Last Vital Signs Temp Pulse Resp BP Pulse Ox 99 F 86 20 150/87 97 08/26/17 17:31 08/26/17 17:31 08/26/17 17:31 08/26/17 17:31 08/26/17 17:31 <Miryam Decker - Last Filed: 08/26/17 21:51> ED Treatment Course - LABORATORY CBC & Chemistry Diagram: 08/26/17 19:00 - RADIOLOGY Radiology Studies Ordered: Category Date Time Status ANKLE & FOOT-RIGHT* [RAD] Stat Radiology 08/26/17 17:44 Taken <Beth Smith - Last Filed: 08/26/17 20:01> - LABORATORY CBC & Chemistry Diagram: 08/26/17 19:00 - ADDITIONAL ORDERS Additional order review: 08/26/17 19:00 RBC 4.80 MCV 89.0 MCHC 32.7 RDW 15.5 MPV 9.1 Neutrophils % 82.7 D Lymphocytes % 8.7 D Monocytes % 6.7 Eosinophils % 1.1 D Basophils % 0.8 <Miryam Decker - Last Filed: 08/26/17 21:51> Medical Decision Making - Medical Decision Making 08/26/17 18:18 A/P: Patient here for evaluation of redness to right foot status post injury when getting off the bus however patient reports that he doesn't think that the injury was intense enough to create swelling and redness that he has today. Will send for xray, CBC to rule out infectious process. 08/26/17 20:07 Laboratory Results - last 24 hr 08/26/17 19:00 WBC 14.1 H D RBC 4.80 Hgb 14.0 Hct 42.7 MCV 89.0 MCH 29.1 MCHC 32.7 RDW 15.5 Plt Count 123 L D MPV 9.1 Neutrophils % 82.7 D Lymphocytes % 8.7 D Monocytes % 6.7 Eosinophils % 1.1 D Basophils % 0.8 Patient with elevated white blood cell count, ordered ultrasound to rule out DVT right lower extremity. CMP and blood cultures added. I am signing this patient out to my colleague: ABIEL Decker In brief, this patient is being seen in the ED for a chief complaint of: Redness, warmth and swelling to right foot I have completed the initial assessment interview note and have ordered: CBC, CMP, x-ray of right foot, blood cultures, ultrasound rule out DVT I have reviewed the following results: X-ray and CBC Pending results are: CMP, blood cultures, ultrasound Plan for disposition is as follows: Pending <Beth Smith - Last Filed: 08/26/17 20:01> - Medical Decision Making 08/26/17 21:39 Patient is refusing further treatment at this time. Patient states he does not want to be here all night and has to work tomorrow morning. He would like his pain medication sent to his pharmacy with antibiotics. It was explained to patient that he should wait for the results of doppler to r/o DVT and receive a first dose of abx IV. Patient does not want IV abx and is requesting percocet. Plan: d/c patient on po clindamycin 300mg TID Podiatry consult PCP follow up Percocet now. No Rx to pharmacy. If doppler studies positive, patient will be notified by phone. Patient agreed to this plan. The Drug Utilization Report below displays all of the controlled substance prescriptions, if any, that your patient has filled in the last twelve months. The information displayed on this report is compiled from pharmacy submissions to the Department, and accurately reflects the information as submitted by the pharmacies. This report was requested by: Francisco Javier Decker | Reference #: [id number] Others' Prescriptions Patient Name: Justen Greenberg Date: 1955 Address: [address] [place] [id number] Sex: Male Rx Written Rx Dispensed Drug Quantity Days Supply Prescriber Name 08/05/2017 08/09/2017 oxycodone-acetaminophen 5-325 mg tablet 30 3 WalkerErica 06/11/2017 06/14/2017 oxycodone-acetaminophen 5-325 mg tab 60 5 WalkerErica PA 02/17/2017 02/22/2017 oxycodone-acetaminophen 5-325 mg tab 60 5 Walker, Erica Case PA 12/24/2016 12/24/2016 oxycodone hcl 10 mg tablet 28 7 Nathan Silva 09/16/2016 09/20/2016 oxycodone-acetaminophen 5-325 mg tab 60 5 Erica Walker Patient Name: Justen Greenberg Date: 1955 Address: [address] [place] [address] Sex: Male Rx Written Rx Dispensed Drug Quantity Days Supply Prescriber Name 10/19/2016 11/13/2016 axiron 30 mg/actuation soln 3 90 Karolina Jamison MD Patient Name: Justen Greenberg Date: 1955 Address: [address] [place] [id number] Sex: Male Rx Written Rx Dispensed Drug Quantity Days Supply Prescriber Name 08/24/2016 09/16/2016 axiron 30 mg/actuation soln 3 90 Dav Weiss MD * - Drugs marked with an asterisk are compound drugs. If the compound drug is made up of more than one controlled substance, then each controlled substance will be a separate row in the <Miryam Decker - Last Filed: 08/26/17 21:51> *DC/Admit/Observation/Transfer <Beth Smith - Last Filed: 08/26/17 20:01> - Discharge Dispostion Admit: No <Miryam Decker - Last Filed: 08/26/17 21:51> Diagnosis at time of Disposition: Cellulitis of foot - Discharge Dispostion Disposition: HOME Condition at time of disposition: Stable - Prescriptions Prescriptions: Clindamycin [Cleocin -] 300 mg PO TID #30 capsule - Referrals Referrals: Claudio Dias MD [Primary Care Provider] - Jason Moss MD [Staff Physician] - - Patient Instructions Printed Discharge Instructions: DI for Cellulitis -- Adult Additional Instructions: Follow up with Dr. Dias within 48 hours for further evaluation. Call to schedule appointment. Take medications as prescribed. Return if your symptoms worsen or any concerns for further evaluation. You will be contacted by phone if the results of your doppler studies are positive for Deep Vein Thrombosis. This is more than likely a mild soft tissue infection called Cellulitis. Print Language: PASHTO"
[2017-08-26 19:28] LABS: BASOPHIL 0.8 % (0-2.0); EOSINOPHIL 1.1 % (0-4.5); MCH 29.1 pg (25.7-33.7); MCHC 32.7 g/dl (32.0-35.9); MEAN PLT VOLUME 9.1 fl (7.5-11.1); NEUTROPHILS 82.7 % (42.8-82.8); PLATELET COUNT 123 K/MM3 (134-434); RDW 15.5 % (11.9-15.9); WHITE BLOOD COUNT 14.1 K/mm3 (4.0-10.0)
[2017-08-26] MEDS ORDERED: CLINDAMYCIN HCL 150 MG CAPSULE (FP) PO ONE (21:50)
[2017-08-26] MEDS ORDERED: CLINDAMYCIN HCL 150 MG CAPSULE (FP) ONE (21:53)
== END 2017-08-26 22:07 | disposition home or self-care (01) ==
LOC: JERFT 17:08 → JER 17:08
DX: L03.115 Cellulitis of right lower limb (principal); X50.1XXA Overexertion from prolonged static or awkward postures, initial encounter; Y93.89 Activity, other specified; Y92.811 Bus as the place of occurrence of the external cause; Y99.8 Other external cause status; I25.10 Atherosclerotic heart disease of native coronary artery without angina pectoris; I10 Essential (primary) hypertension; E78.00 Pure hypercholesterolemia, unspecified; J45.909 Unspecified asthma, uncomplicated; Z86.14 Personal history of Methicillin resistant Staphylococcus aureus infection
CPT/HCPCS: 36415; 73610-TC-RT; 73630-TC-RT; 85025; 93971-TC; 99281-25

== ENCOUNTER 2017-08-30 11:51 | Inpatient (IN) | payer BC, OTHER ==
[2017-08-30 11:56] VITALS: BMI 34.8
--- NOTE | 2017-08-30 12:28 | PDOC ---
History of Present Illness - General Chief Complaint: Redness To Affected Area Stated Complaint: SOB Time Seen by Provider: 08/30/17 12:04 - History of Present Illness Initial Comments: 08/30/17 13:54 The patient is a 61 year old male with a history of asthma, prostate CA, CAD, peptic ulcers, MRSA, aortic valve replacement on coumadin, HTN, HLD who presents for evaluation of right lower extremity redness, swelling, and pain. The patient reports a 4 day history of worsening right lower extremity redness, swelling, and pain. He states that he believes he scratched his ankle on a bus and the next morning noted redness and pain to the lateral aspect of his ankle. He presented to the ED 4 days ago for evaluation and was eventually discharged on PO clindamycin for presumed cellulitis. DVT US done at that time was negative for DVT. Since then, the patient reports worsening symptoms and spreading of the redness despite taking his antibiotics regularly prompting his presentation to the ED today. He denies fevers, chills, SOB, chest pain, abdominal pain, or changes with urination or bowel movements. Past History - Past Medical History Allergies/Adverse Reactions: Allergies Allergy/AdvReac Type Severity Reaction Status Date / Time aspirin Allergy Verified 08/30/17 11:54 NSAIDS (Non-Steroidal Allergy Verified 08/30/17 11:54 Anti-Inflamma crabs Allergy Uncoded 08/30/17 11:54 lobsters Allergy Uncoded 08/30/17 11:54 shrimp Allergy Uncoded 08/30/17 11:54 Home Medications: Ambulatory Orders Atorvastatin Ca [Lipitor] 10 mg PO HS 06/25/14 Furosemide [Lasix -] 40 mg PO DAILY #30 tablet 06/11/16 Oxycodone HCl [Roxicodone -] 5 mg PO Q4H PRN #0 tablet MDD 6 tabs 06/11/16 Prednisone [Deltasone -] 40 mg PO BID #6 tablet 06/11/16 Albuterol Sulfate Inhaler - [Ventolin HFA Inhaler -] 1 - 2 inh PO Q4H PRN #1 inhaler 03/22/17 Methocarbamol [Robaxin-750] 750 mg PO BID #20 tablet 07/21/17 Clindamycin [Cleocin -] 300 mg PO TID #30 capsule 08/26/17 Warfarin Sodium 10 mg PO ASDIR 08/26/17 Anemia: No Asthma: Yes Cancer: Yes (prostate) Cardiac Disorders: Yes Dementia: No GI Disorders: Yes (peptic ulcer, GERD) HTN: Yes Hypercholesterolemia: Yes Seizures: No Thyroid Disease: No - Surgical History Cardiac Surgery: Yes (AORTIC VALVE) Neurologic Surgery: No Orthopedic Surgery: Yes (RIGHT TOTAL KNEE 05/12) - Immunization History Immunization Up to Date: Yes - Suicide/Smoking/Psychosocial Hx Smoking Status: No Smoking History: Never smoked Have you smoked in the past 12 months: No Number of Cigarettes Smoked Daily: 0 Hx Alcohol Use: No Drug/Substance Use Hx: No Substance Use Type: None Hx Substance Use Treatment: No Review of Systems - Review of Systems Comments:: 08/30/17 13:58 Constitutional: No fevers, chills, fatigue, malaise HEENT: No Rhinorrhea, nasal congestion, Cardiovascular: No chest pain, syncope, palpitations, lightheadedness Respiratory: No Cough, SOB, Hemoptysis, Gastrointestinal: No Abdominal pain, Nausea, Vomiting, Constipation, Diarrhea, Melena Genitourinary: No Dysuria, Frequency, Urgency, Hesitancy, Hematuria, Flank pain Musculoskeletal: Right lower extremity redness, swelling, pain. No Myalgia, arthralgia Skin: No rashes, bruising, pallor Neurologic: No Headache, Dizziness, Numbness, Weakness, or Tingling *Physical Exam - Vital Signs Last Vital Signs Temp Pulse Resp BP Pulse Ox 98.5 F 85 24 137/76 98 08/30/17 11:54 08/30/17 11:54 08/30/17 11:54 08/30/17 11:54 08/30/17 11:54 - Physical Exam Comments: 08/30/17 14:00 General Appearance: Nourished. No Apparent Distress HEENT: EOMI, EARL. No Pharyngeal Erythema, Tonsillar Exudate, Tonsillar Erythema Neck: No Cervical Lymphadenopathy Respiratory/Chest: Lungs Clear, Normal Breath Sounds. No Crackles, Rales, Rhonchi, Wheezing Cardiovascular: Regular Rhythm, Regular Rate. No Murmur, Gallops, Rubs Gastrointestinal/Abdominal: Normal Bowel Sounds, Soft. No Guarding, Rebound, Tenderness Musculoskeletal: No CVA Tenderness Extremity: 2+ pitting edema to the right lower extremity with circumferential erythema and warmth to the right ankle, tender to palpation. Normal Capillary Refill Integumentary: Normal Color, Dry, Warm Neurologic: Fully Oriented, Alert, Normal Mood/Affect, Normal Response, ED Treatment Course - LABORATORY CBC & Chemistry Diagram: 08/30/17 13:35 08/30/17 13:35 Medical Decision Making - Medical Decision Making 08/30/17 14:01 The patient is a 61 year old male with a history of asthma, prostate CA, CAD, peptic ulcers, MRSA, aortic valve replacement on coumadin, HTN, HLD who presents for evaluation of right lower extremity redness, swelling, and pain. Given the patient's physical exam, it is likely his symptoms are due to a worsening cellulitis despite outpatient antibiotic treatment. It is unlikely the patient has a DVT given his negative US 4 days ago. He is still able to ambulate with difficulty due to pain and range his ankle making a septic arthritis unlikely. We will send a cbc, cmp, troponin, blood cultures to evaluate and treat him with vancomycin here in the ED. Given that he has failed outpatient management, it is likely he will require admission for iv antibiotics and further management. We will continue to monitor and reassess. 08/30/17 15:07 cbc, cmp, troponin is unremarkable here in the ED. We discussed the case with Dr. Haro who accepted the patient for admission. 08/30/17 15:[address] Patient[address] primary is Dr. Ross. We discussed the case with Dr. Ross who accepted the patient for admission. We will change the admission order and inform Dr. Haro about the correction. *DC/Admit/Observation/Transfer Diagnosis at time of Disposition: Cellulitis of foot - Discharge Dispostion Condition at time of disposition: Stable Admit: Yes
[2017-08-30] MEDS ORDERED: VANCOMYCIN 1,250 MG in DEXTROSE 5%-WATER - 250 ML IVPB ONE (13:11)
[2017-08-30 13:50] LABS: BASOPHIL 0.6 % (0-2.0); EOSINOPHIL 3.8 % (0-4.5); MCH 29.2 pg (25.7-33.7); MCHC 32.7 g/dl (32.0-35.9); MEAN CELL VOLUME 89.1 fl (80-96); MEAN PLT VOLUME 8.6 fl (7.5-11.1); NEUTROPHILS 71.1 % (42.8-82.8); PLATELET COUNT 201 K/MM3 (134-434); RDW 15.7 % (11.9-15.9); WHITE BLOOD COUNT 5.8 K/mm3 (4.0-10.0)
--- NOTE | 2017-08-30 14:12 | PDOC ---
Attending Attestation - Resident Resident Name: Jimmy Adame - ED Attending Attestation I have performed the following: I have examined & evaluated the patient, The case was reviewed & discussed with the resident, I agree w/resident's findings & plan, Exceptions are as noted - HPI HPI: 08/30/17 14:07 61-year-old male with history of hypertension and cholesterol seen here 4 days ago for right ankle swelling/redness, ruled out for DVT at that time, then signed out AMA on clinda course but presents now with worsening redness/swelling /pain to R ankle. no f/c/cp/sob. - Physicial Exam PE: 08/30/17 14:12 Afebrile. Agree with exam as outlined, right lower extremity circumferential cellulitis at the ankle and distal lower leg, 2+ pitting edema to the knee, neurovascularly intact otherwise without joint effusion or stiffness. - Medical Decision Making 08/30/17 14:12 Patient seen and evaluated with the resident. I agree with the overall evaluation, assessment, and management with the following summary of visit: 61-year-old male with right lower shimmery cellulitis failing outpatient clindamycin, now with worsening swelling and pain. Neurovascular intact, has history of MRSA. Check labs and x-ray IV antibiotics Admission
[2017-08-30 14:19] LABS: ALBUMIN 3.5 g/dl (3.4-5.0); ANION GAP 10 (8-16); BILIRUBIN,TOTAL 0.3 mg/dL (0.2-1.0); CALCIUM 8.9 mg/dL (8.5-10.1); CO2 26 mmol/L (21-32); CREATININE 1.3 mg/dL (0.7-1.3); GLUCOSE,RANDOM 81 mg/dL (74-106); SGOT/AST 25 U/L (15-37); SGPT/ALT 36 U/L (12-78); TOT PROT 6.5 g/dl (6.4-8.2)
[2017-08-30 14:21] LABS: ALK PHOS 70 U/L (45-117); CPK 128 IU/L (39-308); TROPONIN I < 0.02 ng/ml (0.00-0.05)
--- NOTE | 2017-08-30 14:56 | EKG ---
Test Reason : Blood Pressure : / mmHG Vent. Rate : 079 BPM Atrial Rate : 079 BPM P-R Int : 182 ms QRS Dur : 104 ms QT Int : 348 ms P-R-T Axes : 027 -22 049 degrees QTc Int : 399 ms SINUS RHYTHM WITH MARKED SINUS ARRHYTHMIA NONSPECIFIC T WAVE ABNORMALITY ABNORMAL ECG WHEN COMPARED WITH ECG OF 21-JUL-2017 18:37, LIKELY NO SIGNIFICANT CHANGES WERE SEEN Confirmed by IMANI STEEN MD ([id number]) on 08/30/2017 2:55:46 PM Referred By: Confirmed By:IMANI STEEN MD
--- NOTE | 2017-08-30 16:12 | HP ---
Admitting History and Physical - Primary Care Physician PCP: Claudio Salinas - Admission Chief Complaint: painful right ankle History of Present Illness: The patient is a 61 year old male with a history of asthma, prostate CA, CAD, peptic ulcers, MRSA, aortic valve replacement on coumadin, HTN, HLD who presents for evaluation of right lower extremity redness, swelling, and ankle pain. The patient reports a 4 day history of worsening right lower extremity redness, swelling, and pain. He states that he believes he scratched his ankle on a bus and the next morning noted redness and pain to the lateral aspect of his ankle. He presented to the ED 4 days ago for evaluation and was eventually discharged on PO clindamycin for presumed cellulitis. DVT US done at that time was negative for DVT. Since then, the patient reports worsening symptoms and spreading of the redness despite taking his antibiotics regularly prompting his presentation to the ED today. He denies fevers, chills, SOB, chest pain, abdominal pain. 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 Never intubated , Uses albuterol singulairand advair. Never smoked) Gastrointestinal: Yes: Other (history pancreatitis (once) ? 2nd to alcoholic pancreatitis) Hepatobiliary: No: Cirrhosis Renal/: Yes: Other (Low testosterone-has been on replacement). No: Renal Failure Heme/Onc: No: Anemia Infectious Disease: No: AIDS Psych: No: Addictions Musculoskeletal: Yes: Osteoarthritis (s/p B/L TKR (12/2013; 2011)) ENT: Yes: Other (nasal polyps s/p 3 polyp removal) Endocrine: Yes: Other (Low testosterone: taking replacement) - Past Surgical History Past Surgical History: Yes: Joint Replacement (R TKR 2011; L TKR 2013) Additional Past Surgical History: aortic valve replacement bilateral knee replacements - Smoking History Smoking history: Never smoked Have you smoked in the past 12 months: No Aproximately how many cigarettes per day: 0 - Alcohol/Substance Use Hx Alcohol Use: No History of Substance Use: reports: None - Social History Usual Living Arrangement: Yes: Alone ADL: Independent History of Recent Travel: No Home Medications - Allergies Allergies/Adverse Reactions: Allergies Allergy/AdvReac Type Severity Reaction Status Date / Time aspirin Allergy Verified 08/30/17 11:54 NSAIDS (Non-Steroidal Allergy Verified 08/30/17 11:54 Anti-Inflamma crabs Allergy Uncoded 08/30/17 11:54 lobsters Allergy Uncoded 08/30/17 11:54 shrimp Allergy Uncoded 08/30/17 11:54 - Home Medications Home Medications: Ambulatory Orders Atorvastatin Ca [Lipitor] 10 mg PO HS 06/25/14 Furosemide [Lasix -] 40 mg PO DAILY #30 tablet 06/11/16 Oxycodone HCl [Roxicodone -] 5 mg PO Q4H PRN #0 tablet MDD 6 tabs 06/11/16 Prednisone [Deltasone -] 40 mg PO BID #6 tablet 06/11/16 Albuterol Sulfate Inhaler - [Ventolin HFA Inhaler -] 1 - 2 inh PO Q4H PRN #1 inhaler 03/22/17 Methocarbamol [Robaxin-750] 750 mg PO BID #20 tablet 07/21/17 Clindamycin [Cleocin -] 300 mg PO TID #30 capsule 08/26/17 Warfarin Sodium 10 mg PO ASDIR 08/26/17 Family Disease History - Family Disease History Family History: Unremarkable Review of Systems - Review of Systems Cardiovascular: denies: Chest Pain Respiratory: denies: Cough, Hemoptysis, SOB on Exertion, Wheezing Gastrointestinal: reports: No Symptoms Genitourinary: reports: No Symptoms Breasts: reports: No Symptoms Reported Musculoskeletal: reports: Joint Pain, Joint Swelling Neurological: reports: No Symptoms Endocrine: reports: No Symptoms Hematology/Lymphatic: reports: No Symptoms Physical Examination Vital Signs: Vital Signs Temperature 98.5 F 08/30/17 11:54 Pulse Rate 85 08/30/17 11:54 Respiratory Rate 24 08/30/17 11:54 Blood Pressure 137/76 08/30/17 11:54 O2 Sat by Pulse Oximetry (%) 98 08/30/17 11:54 Constitutional: Yes: Calm Eyes: Yes: EOM Intact HENT: Yes: Normocephalic Neck: Yes: Trachea Midline Cardiovascular: Yes: Regular Rate and Rhythm Respiratory: Yes: Wheezes (mild bilateral end exp wheeze) Gastrointestinal: Yes: Normal Bowel Sounds ...Rectal Exam: Yes: Deferred Renal/: Yes: WNL Breast(s): Yes: WNL Musculoskeletal: Yes: Joint Swelling Extremities: Yes: Erythema (right ankle) Edema: RLE: 2+ Integumentary: Yes: Erythema (right ankle) Psychiatric: Yes: WNL Labs: all labs reviewed Imaging - Results Chest X-ray: Pending X-ray: Report Reviewed, Image Reviewed EKG: Report Reviewed, Image Reviewed Problem List - Problems (1) Asthma Code(s): J45.909 - UNSPECIFIED ASTHMA, UNCOMPLICATED Qualifiers: Asthma severity: severe persistent Asthma complication type: with acute exacerbation Qualified Code(s): J45.51 - Severe persistent asthma with (acute) exacerbation; J45.51 - Severe persistent asthma with (acute) exacerbation; J45.51 - Severe persistent asthma with (acute) exacerbation (2) Cellulitis of foot Code(s): L03.119 - CELLULITIS OF UNSPECIFIED PART OF LIMB (3) Class 2 obesity with body mass index (BMI) of 35 to 39.9 without comorbidity Code(s): E66.01 - MORBID (SEVERE) OBESITY DUE TO EXCESS CALORIES (4) Aortic valve replaced Code(s): Z95.2 - PRESENCE OF PROSTHETIC HEART VALVE (5) Ankle cellulitis Code(s): L03.119 - CELLULITIS OF UNSPECIFIED PART OF LIMB Assessment/Plan Check blood cultures pending(was on oral clindamycin/ 3 days prior to admission) Will begin IV antibiotics to cover MRSA ID eval anticoagulation/diltiazem/bronchodilators/O2 prn continue home meds Poly SALINAS MD
[2017-08-30] MEDS ORDERED: VANCOMYCIN 1,250 MG in DEXTROSE 5%-WATER - 250 ML IVPB SCH (17:15)
[2017-08-30] MEDS ORDERED: WARFARIN NA 5 MG TABLET (UD) ONE (18:59)
[2017-08-30] MEDS ORDERED: PIPERACILLIN/TAZOB 4.5 GM 100 ML IVPB ONE (19:00)
[2017-08-30] MEDS: PIPERACILLIN/TAZOB 4.5 GM/100 ML PREMIX BAG IVPB SCH (19:22)
[2017-08-30] MEDS: WARFARIN NA 10 MG TABLET (FP) PO SCH (19:22)
[2017-08-30 20:35] LABS: URINE APPEARANCE SLCLOUDY; URINE BILIRUBIN NEGATIVE (NEGATIVE); URINE BLOOD NEGATIVE (NEGATIVE); URINE COLOR AMBER; URINE GLUCOSE (UA) NEGATIVE (NEGATIVE); URINE KETONE TRACE (NEGATIVE); URINE NITRITE NEGATIVE (NEGATIVE); URINE PROTEIN NEGATIVE (NEGATIVE)
[2017-08-30 22:31] LABS: URINE LEUK ESTERASE Negative (NEGATIVE)
[2017-08-30] MEDS: ATORVASTATIN CA 10 MG TABLET (FP) PO SCH (23:59)
[2017-08-31] MEDS ORDERED: ACETAMINOPHEN 325 MG TABLET (FP) ONE ×3 (00:46→11:17)
[2017-08-31] MEDS ORDERED: oxyCODONE HCL 5 MG TABLET ONE ×3 (00:47→11:18)
[2017-08-31] MEDS: ALBUTEROL SO4 2.5/IPRATROPIUM 0.5 INH SOL 3 ML VIAL.NEB. NEB SCH ×4 (00:51→23:30)
[2017-08-31] MEDS: ACETAMINOPHEN 325 MG TABLET (FP) PO PRN ×4 (00:55→18:34)
[2017-08-31] MEDS: oxyCODONE HCL 5 MG TABLET PO PRN ×4 (00:55→18:33)
[2017-08-31] MEDS: PIPERACILLIN/TAZOB 4.5 GM/100 ML PREMIX BAG IVPB SCH ×2 (02:00→11:32)
[2017-08-31] MEDS ORDERED: VANCOMYCIN 1,250 MG in DEXTROSE 5%-WATER - 250 ML IVPB SCH (03:00)
[2017-08-31 07:54] LABS: EOSINOPHIL 11.7 % (0-4.5); MCH 28.8 pg (25.7-33.7); MCHC 32.2 g/dl (32.0-35.9); MEAN CELL VOLUME 89.4 fl (80-96); MEAN PLT VOLUME 8.4 fl (7.5-11.1); NEUTROPHILS 37.8 % (42.8-82.8); PLATELET COUNT 182 K/MM3 (134-434); RDW 15.7 % (11.9-15.9); WHITE BLOOD COUNT 3.9 K/mm3 (4.0-10.0)
[2017-08-31 08:43] LABS: ANION GAP 7 (8-16); CALCIUM 8.5 mg/dL (8.5-10.1); CO2 27 mmol/L (21-32); CREATININE 1.2 mg/dL (0.7-1.3); GLUCOSE,RANDOM 119 mg/dL (74-106)
[2017-08-31] MEDS: TAMSULOSIN HCL 0.4 MG CAP.ER.24H (FP) PO SCH (10:17)
[2017-08-31] MEDS: FUROSEMIDE 40 MG TABLET (FP) PO SCH (10:17)
--- NOTE | 2017-08-31 12:02 | PN ---
Progress Note (short form) - Note Progress Note: ID Consult dictated R foot/ LE cellulitis Hx MRSA S/P AVR S/P bilateral TKR Leukopenia Await c/s Empiric vancomycin/ ceftriaxone
[2017-08-31] MEDS: CEFTRIAXONE 2 GM in DEXTROSE 5%-WATER - 100 ML IVPB SCH (12:57)
--- NOTE | 2017-08-31 13:09 | CONS ---
DATE OF CONSULTATION: 08/31/2017 INFECTIOUS DISEASE CONSULTATION HISTORY OF PRESENT ILLNESS: The patient is a 61-year-old male with a history of valvular heart disease status post aortic valve replacement in December 2016, history of MRSA soft tissue infection in the past, now admitted with cellulitis of the right foot. The patient states he developed worsening right foot swelling and erythema since last (4-5 days prior to admission). He has no recall for any specific episode of trauma however, he believes he may have twisted his ankle while commuting. He developed worsening pain and swelling of the right foot. He presented to the emergency room on August 26, 2017 where he was diagnosed with cellulitis and prescribed clindamycin. Despite taking clindamycin the pain, swelling and erythema of the right foot and lower extremity worsened. He returned to the emergency room. He is now diagnosed with worsening cellulitis of the right lower extremity and he was empirically treated with vancomycin and Zosyn. He was noted to have some ecchymotic areas on his abdomen and left flank area. The patient is on 10 mg of Coumadin daily for his valve replacement. He does also take intermittent prednisone for bronchospasm. He is not presently on prednisone. PAST MEDICAL HISTORY: Positive for coronary artery disease, history of MRSA soft tissue infection from November 2014, history of asthma, prostate cancer, peptic ulcer disease, hypertension, hyperlipidemia. PAST SURGICAL HISTORY: Status post bilateral total knee replacement and aortic valve replacement. The patient reports he has a mechanical valve. ALLERGIES: ASPIRIN, NONSTEROIDALS. MEDICATIONS: Include Flomax, Tylenol, Coumadin, Lipitor, Singulair, Lasix, oxycodone. SOCIAL HISTORY: He works in [employer] for the [employer]. He is a nonsmoker, nondrinker. HIV status is not known. REVIEW OF SYSTEMS: Neurologic: No loss of consciousness, seizure activity, focal weakness. Cardiac: Negative for chest pain or palpitations. He is status post aortic valve replacement. Respiratory: Negative for cough or sputum production. Gastrointestinal: Negative vomiting or diarrhea. Genitourinary: Negative for urinary tract infection. LABORATORY DATA: White count is 3.9, 37 neutrophils, 38 lymphocytes, 10 monocytes, 11 eosinophils, hematocrit 39.9, platelet count 182. BUN 14, creatinine 1.2. Liver enzymes normal. Urinalysis negative. X-ray of the foot showed no fracture or dislocation and no foreign body. PHYSICAL EXAMINATION: General: Awake and alert and in no acute distress. He is obese. Vital signs: Temperature 97.7, blood pressure 155/94, pulse 65 regular, respirations 20 per minute. HEENT: Sclerae anicteric. Heart: S1, S2. No appreciable murmur and no metallic click. Lungs: Occasional short expiratory wheeze bilaterally. Abdomen: Obese, soft, nontender. Extremities: He has diffuse swelling of the left foot with erythema and warmth present on the dorsal aspect of the foot extending to the distal right lower extremity. There are no open wounds. No crepitus or fluctuance, no lymphangitic streaking. He has bilateral healed total knee replacement scars. SKIN: The patient also has small ecchymotic areas present on the abdomen and left flank. IMPRESSION: 1. Right foot/right lower extremity cellulitis. 2. History of methicillin-resistant staphylococcus aureus soft tissue infection. 3. Status post aortic valve replacement. 4. Status post bilateral total knee replacements. 5. Leukopenia. PLAN: 1. Await blood culture results. 2. Empiric antibiotic coverage with vancomycin and ceftriaxone. 3. Elevation. 4. Analgesics. 5. Check INR. Will follow. Thank you for the kind referral. JEF RUSSELL M.D. [id number]
[2017-08-31] MEDS ORDERED: ALBUTEROL SO4 2.5/IPRATROPIUM 0.5 INH SOL 3 ML VIAL.NEB. NEB ONE (13:13)
--- NOTE | 2017-08-31 14:24 | PN ---
Progress Note (short form) - Note Progress Note: Patient seen and examined in the ER holding area. Some dry cough. No CP or SOB. Some mild discomfort at his RLE. Intake & Output 08/28/17 08/29/17 08/30/17 08/31/17 23:59 23:59 23:59 23:59 Intake Total 1100 Balance 1100 Weight 250 lb Last Vital Signs Temp Pulse Resp BP Pulse Ox 97.7 F 65 20 155/94 97 08/31/17 10:00 08/31/17 10:00 08/31/17 10:00 08/31/17 10:00 08/31/17 10:00 Active Medications Acetaminophen (Tylenol -) 650 mg PO Q4H PRN PRN Reason: PAIN Stop: 09/02/17 17:41 Last Admin: 08/31/17 11:26 Dose: 650 mg Albuterol/Ipratropium (Duoneb -) 1 amp NEB TIDR [facility] Last Admin: 08/31/17 14:00 Dose: 1 amp Atorvastatin Calcium (Lipitor -) 10 mg PO [facility] Last Admin: 08/30/17 23:59 Dose: 10 mg Furosemide (Lasix -) 40 mg PO DAILY [facility] Last Admin: 08/31/17 10:17 Dose: 40 mg Vancomycin HCl 1,000 mg/ (Dextrose) 250 mls @ 166.667 mls/hr IVPB Q12H [facility] Ceftriaxone Sodium 2 gm/ (Dextrose) 100 mls @ 200 mls/hr IVPB DAILY [facility] Last Admin: 08/31/17 12:57 Dose: 200 mls/hr Influenza Virus Vaccine Quadrival (Flulaval Quad [id number]) 60 mcg IM .ONCE ONE Stop: 09/01/17 09:01 Montelukast Sodium (Singulair -) 10 mg PO [facility] Last Admin: 08/31/17 00:00 Dose: 10 mg Oxycodone HCl (Roxicodone -) 10 mg PO Q4H PRN PRN Reason: PAIN Last Admin: 08/31/17 11:25 Dose: 10 mg Pneumococcal 13-Valent Conj Vacc (Prevnar 13 Syringe -) 0.5 ml IM .ONCE ONE Stop: 09/01/17 09:01 Tamsulosin HCl (Flomax -) 0.4 mg PO DAILY@0830 [facility] Last Admin: 08/31/17 10:17 Dose: 0.4 mg Warfarin Sodium (Coumadin -) 10 mg PO DAILY@1800 [facility] Last Admin: 08/30/17 19:22 Dose: Not Given Constitutional: Yes: Calm Eyes: Yes: EOM Intact HENT: Yes: Normocephalic Neck: Yes: Trachea Midline Cardiovascular: Yes: Regular Rate and Rhythm Respiratory: Yes: Few scattered rhonchi Gastrointestinal: Yes: Normal Bowel Sounds ...Rectal Exam: Yes: Deferred Renal/: Yes: WNL Breast(s): Yes: WNL Musculoskeletal: Yes: Joint Swelling Extremities: Yes: Erythema (right ankle) Edema: RLE: 2+ Integumentary: Yes: Erythema (right ankle) Psychiatric: Yes: WNL Labs: Laboratory Results - last 24 hr 08/30/17 08/30/17 08/30/17 13:35 13:35 20:20 WBC 5.8 D RBC 4.66 Hgb 13.6 Hct 41.5 MCV 89.1 MCH 29.2 MCHC 32.7 RDW 15.7 Plt Count 201 D MPV 8.6 Neutrophils % 71.1 Lymphocytes % 14.5 D Monocytes % 10.0 Eosinophils % 3.8 D Basophils % 0.6 Sodium 140 Potassium 4.0 Chloride 104 Carbon Dioxide 26 Anion Gap 10 BUN 14 Creatinine 1.3 D Creat Clearance w eGFR 56.31 Random Glucose 81 Calcium 8.9 Total Bilirubin 0.3 D AST 25 ALT 36 Alkaline Phosphatase 70 Creatine Kinase 128 Troponin I < 0.02 Total Protein 6.5 Albumin 3.5 Urine Color Jenny Urine Appearance Slcloudy Urine pH 5.0 Ur Specific [facility] 1.027 Urine Protein Negative Urine Glucose (UA) Negative Urine Ketones Trace H Urine Blood Negative Urine Nitrite Negative Urine Bilirubin Negative Urine Urobilinogen 2.0 Ur Leukocyte Esterase Negative 08/31/17 08/31/17 07:25 07:25 WBC 3.9 L D RBC 4.47 Hgb 12.9 Hct 39.9 MCV 89.4 MCH 28.8 MCHC 32.2 RDW 15.7 Plt Count 182 MPV 8.4 Neutrophils % 37.8 L D Lymphocytes % 38.7 D Monocytes % 10.8 H Eosinophils % 11.7 H D Basophils % 1.0 Sodium 139 Potassium 4.7 Chloride 105 Carbon Dioxide 27 Anion Gap 7 L BUN 14 Creatinine 1.2 Creat Clearance w eGFR Random Glucose 119 H D Calcium 8.5 Total Bilirubin AST ALT Alkaline Phosphatase Creatine Kinase Troponin I Total Protein Albumin Urine Color Urine Appearance Urine pH Ur Specific [facility] Urine Protein Urine Glucose (UA) Urine Ketones Urine Blood Urine Nitrite Urine Bilirubin Urine Urobilinogen Ur Leukocyte Esterase Problem List - Problems (1) Asthma Code(s): J45.909 - UNSPECIFIED ASTHMA, UNCOMPLICATED Qualifiers: Asthma severity: severe persistent Asthma complication type: with acute exacerbation Qualified Code(s): J45.51 - Severe persistent asthma with (acute) exacerbation; J45.51 - Severe persistent asthma with (acute) exacerbation; J45.51 - Severe persistent asthma with (acute) exacerbation (2) Cellulitis of foot Code(s): L03.119 - CELLULITIS OF UNSPECIFIED PART OF LIMB (3) Class 2 obesity with body mass index (BMI) of 35 to 39.9 without comorbidity Code(s): E66.01 - MORBID (SEVERE) OBESITY DUE TO EXCESS CALORIES (4) Aortic valve replaced Code(s): Z95.2 - PRESENCE OF PROSTHETIC HEART VALVE (5) Ankle cellulitis Code(s): L03.119 - CELLULITIS OF UNSPECIFIED PART OF LIMB Assessment/Plan ABX per ID Check INR CPAP @ 9 cm H2O QHS AC with Coumadin BD TX PRN Home meds as ordered PO as tolerated Dr Ernst
[2017-08-31] MEDS: VANCOMYCIN 1,000 MG in DEXTROSE 5%-WATER - 250 ML IVPB SCH (14:51)
[2017-08-31] MEDS ORDERED: LOSARTAN POTASSIUM 25 MG TABLET PO ONE (15:00)
[2017-08-31 16:52] LABS: PROTHROMBIN TIME (PATIENT) 52.2 SEC (9.98-11.88)
[2017-08-31 17:09] LABS: INR 4.62 (0.82-1.09)
[2017-08-31] MEDS: WARFARIN NA 10 MG TABLET (FP) PO SCH (17:32)
[2017-08-31] MEDS ORDERED: FLU VACCINE QUAD 60 MCG/0.5 ML (MDV 17-18) IM ONE (19:45)
[2017-08-31] MEDS ORDERED: PNEUMOC 13-VAL CONJ-DIP CRM/PF 0.5 ML DISP.SYRIN IM ONE (21:00)
[2017-08-31] MEDS: MONTELUKAST NA 10 MG TABLET PO SCH ×2 (22:04)
[2017-08-31] MEDS: ATORVASTATIN CA 10 MG TABLET (FP) PO SCH ×2 (22:04→22:35)
[2017-09-01] MEDS: VANCOMYCIN 1,000 MG in DEXTROSE 5%-WATER - 250 ML IVPB SCH ×2 (01:50→14:29)
[2017-09-01] MEDS: ALBUTEROL SO4 2.5/IPRATROPIUM 0.5 INH SOL 3 ML VIAL.NEB. NEB SCH ×3 (07:00→22:00)
[2017-09-01] MEDS: TAMSULOSIN HCL 0.4 MG CAP.ER.24H (FP) PO SCH (07:29)
[2017-09-01] MEDS: oxyCODONE HCL 5 MG TABLET PO PRN ×3 (07:29→18:26)
[2017-09-01] MEDS: ACETAMINOPHEN 325 MG TABLET (FP) PO PRN ×3 (07:30→18:25)
[2017-09-01 08:00] LABS: MCH 29.1 pg (25.7-33.7); MCHC 32.8 g/dl (32.0-35.9); MEAN CELL VOLUME 88.9 fl (80-96); MEAN PLT VOLUME 8.3 fl (7.5-11.1); PLATELET COUNT 215 K/MM3 (134-434); RDW 15.5 % (11.9-15.9); WHITE BLOOD COUNT 3.4 K/mm3 (4.0-10.0)
[2017-09-01 08:13] LABS: INR 2.93 (0.82-1.09); PROTHROMBIN TIME (PATIENT) 33.1 SEC (9.98-11.88)
[2017-09-01] MEDS: CEFTRIAXONE 2 GM in DEXTROSE 5%-WATER - 100 ML IVPB SCH (09:50)
[2017-09-01] MEDS ORDERED: PNEUMOC 13-VAL CONJ-DIP CRM/PF 0.5 ML DISP.SYRIN IM ONE (10:00)
[2017-09-01] MEDS: FUROSEMIDE 40 MG TABLET (FP) PO SCH (10:50)
--- NOTE | 2017-09-01 10:50 | PN ---
Progress Note, Physician History of Present Illness: C/O R LE pain No c/o fever/ chills Tolerating antibiotics Afebrile Leukopenic - Current Medication List Current Medications: Active Medications Acetaminophen (Tylenol -) 650 mg PO Q4H PRN PRN Reason: PAIN Stop: 09/02/17 17:41 Last Admin: 09/01/17 07:30 Dose: 650 mg Albuterol/Ipratropium (Duoneb -) 1 amp NEB TIDR [facility] Last Admin: 09/01/17 07:00 Dose: 1 amp Atorvastatin Calcium (Lipitor -) 10 mg PO [facility] Last Admin: 08/31/17 22:35 Dose: 10 mg Furosemide (Lasix -) 40 mg PO DAILY [facility] Last Admin: 08/31/17 10:17 Dose: 40 mg Vancomycin HCl 1,000 mg/ (Dextrose) 250 mls @ 166.667 mls/hr IVPB Q12H [facility] Last Admin: 09/01/17 01:50 Dose: 166.667 mls/hr Ceftriaxone Sodium 2 gm/ (Dextrose) 100 mls @ 200 mls/hr IVPB DAILY [facility] Last Admin: 08/31/17 12:57 Dose: 200 mls/hr Montelukast Sodium (Singulair -) 10 mg PO [facility] Last Admin: 08/31/17 22:04 Dose: 10 mg Oxycodone HCl (Roxicodone -) 10 mg PO Q4H PRN PRN Reason: PAIN Last Admin: 09/01/17 07:29 Dose: 10 mg Tamsulosin HCl (Flomax -) 0.4 mg PO DAILY@0830 [facility] Last Admin: 09/01/17 07:29 Dose: 0.4 mg Warfarin Sodium (Coumadin -) 10 mg PO DAILY@1800 [facility] Last Admin: 08/31/17 17:32 Dose: Not Given - Objective Vital Signs: Vital Signs Temperature 98.1 F 09/01/17 06:00 Pulse Rate 74 09/01/17 06:00 Respiratory Rate 20 09/01/17 06:00 Blood Pressure 158/79 09/01/17 06:00 O2 Sat by Pulse Oximetry (%) 97 08/31/17 21:00 Constitutional: Yes: No Distress Eyes: Yes: Conjunctiva Clear Cardiovascular: Yes: Regular Rate and Rhythm, S1, S2 Respiratory: Yes: CTA Bilaterally Gastrointestinal: Yes: Normal Bowel Sounds, Soft, Abdomen, Obese. No: Tenderness Extremities: Yes: Other (+ R LE/ foot edema Erythema / warmth extending from foot to distal LE) Labs: CBC, BMP 09/01/17 06:48 08/31/17 07:25 INR, PTT INR 2.93 (0.82-1.09) H D 09/01/17 06:48 Assessment/Plan Cellulitis R foot/ LE Hx MRSA soft tissue infection S/P AVR Leukopenia Continue empiric vancomycin/ ceftriaxone Await c/s
--- NOTE | 2017-09-01 13:31 | PN ---
Progress Note, Physician History of Present Illness: PULMONARY ALERT,FEELING BETTER,LOWER EXT PAIN IMPROVING - Current Medication List Current Medications: Active Medications Acetaminophen (Tylenol -) 650 mg PO Q4H PRN PRN Reason: PAIN Stop: 09/02/17 17:41 Last Admin: 09/01/17 07:30 Dose: 650 mg Albuterol/Ipratropium (Duoneb -) 1 amp NEB TIDR [facility] Last Admin: 09/01/17 07:00 Dose: 1 amp Atorvastatin Calcium (Lipitor -) 10 mg PO [facility] Last Admin: 08/31/17 22:35 Dose: 10 mg Furosemide (Lasix -) 40 mg PO DAILY [facility] Last Admin: 09/01/17 10:50 Dose: 40 mg Vancomycin HCl 1,000 mg/ (Dextrose) 250 mls @ 166.667 mls/hr IVPB Q12H [facility] Last Admin: 09/01/17 01:50 Dose: 166.667 mls/hr Ceftriaxone Sodium 2 gm/ (Dextrose) 100 mls @ 200 mls/hr IVPB DAILY [facility] Last Admin: 08/31/17 12:57 Dose: 200 mls/hr Montelukast Sodium (Singulair -) 10 mg PO [facility] Last Admin: 08/31/17 22:04 Dose: 10 mg Oxycodone HCl (Roxicodone -) 10 mg PO Q4H PRN PRN Reason: PAIN Last Admin: 09/01/17 07:29 Dose: 10 mg Tamsulosin HCl (Flomax -) 0.4 mg PO DAILY@0830 [facility] Last Admin: 09/01/17 07:29 Dose: 0.4 mg Warfarin Sodium (Coumadin -) 10 mg PO DAILY@1800 [facility] Last Admin: 08/31/17 17:32 Dose: Not Given - Objective Vital Signs: Vital Signs Temperature 98.1 F 09/01/17 06:00 Pulse Rate 84 09/01/17 10:00 Respiratory Rate 20 09/01/17 10:00 Blood Pressure 140/80 09/01/17 10:00 O2 Sat by Pulse Oximetry (%) 97 08/31/17 21:00 Constitutional: Yes: Well Nourished, Calm Eyes: Yes: WNL HENT: Yes: WNL Neck: Yes: Supple Cardiovascular: Yes: Regular Rate and Rhythm, S1, S2 Respiratory: Yes: Wheezes (FEW WHEEZES) Gastrointestinal: Yes: Normal Bowel Sounds, Soft Extremities: Yes: WNL Edema: Yes (RLE) Labs: CBC, BMP 09/01/17 06:48 08/31/17 07:25 INR, PTT INR 2.93 (0.82-1.09) H D 09/01/17 06:48 Assessment/Plan Problem List - Problems (1) Asthma Code(s): J45.909 - UNSPECIFIED ASTHMA, UNCOMPLICATED Qualifiers: Asthma severity: severe persistent Asthma complication type: with acute exacerbation Qualified Code(s): J45.51 - Severe persistent asthma with (acute) exacerbation; J45.51 - Severe persistent asthma with (acute) exacerbation; J45.51 - Severe persistent asthma with (acute) exacerbation (2) Cellulitis of foot Code(s): L03.119 - CELLULITIS OF UNSPECIFIED PART OF LIMB (3) Class 2 obesity with body mass index (BMI) of 35 to 39.9 without comorbidity Code(s): E66.01 - MORBID (SEVERE) OBESITY DUE TO EXCESS CALORIES (4) Aortic valve replaced Code(s): Z95.2 - PRESENCE OF PROSTHETIC HEART VALVE (5) Ankle cellulitis Code(s): L03.119 - CELLULITIS OF UNSPECIFIED PART OF LIMB Assessment/Plan ABX per ID Check INR CPAP @ 9 cm H2O QHS AC with Coumadin BD [place] PRN DR ONTIVEROS
[2017-09-01] MEDS: WARFARIN NA 10 MG TABLET (FP) PO SCH (17:25)
[2017-09-01] MEDS: MONTELUKAST NA 10 MG TABLET PO SCH (21:30)
[2017-09-01] MEDS: ATORVASTATIN CA 10 MG TABLET (FP) PO SCH (21:30)
[2017-09-02] MEDS ORDERED: PT OWN MED DRAWER 7, Y5N ONE ×3 (01:36→20:59)
[2017-09-02] MEDS: VANCOMYCIN 1,000 MG in DEXTROSE 5%-WATER - 250 ML IVPB SCH ×2 (01:45→14:38)
[2017-09-02] MEDS: ACETAMINOPHEN 325 MG TABLET (FP) PO PRN ×2 (06:48→13:40)
[2017-09-02] MEDS: oxyCODONE HCL 5 MG TABLET PO PRN ×5 (06:49→21:10)
[2017-09-02] MEDS: ALBUTEROL SO4 2.5/IPRATROPIUM 0.5 INH SOL 3 ML VIAL.NEB. NEB SCH ×3 (07:10→22:07)
[2017-09-02] MEDS: TAMSULOSIN HCL 0.4 MG CAP.ER.24H (FP) PO SCH (08:23)
[2017-09-02] MEDS: FUROSEMIDE 40 MG TABLET (FP) PO SCH (10:23)
[2017-09-02] MEDS: CEFTRIAXONE 2 GM in DEXTROSE 5%-WATER - 100 ML IVPB SCH (10:24)
--- NOTE | 2017-09-02 10:24 | PN ---
Progress Note, Physician History of Present Illness: Awake and alert C/O R foot pain No c/o fever/ chills Afebrile Blood c/s no growth - Current Medication List Current Medications: Active Medications Acetaminophen (Tylenol -) 650 mg PO Q4H PRN PRN Reason: PAIN Stop: 09/02/17 17:41 Last Admin: 09/02/17 06:48 Dose: 650 mg Albuterol/Ipratropium (Duoneb -) 1 amp NEB TIDR [facility] Last Admin: 09/02/17 07:10 Dose: 1 amp Atorvastatin Calcium (Lipitor -) 10 mg PO [facility] Last Admin: 09/01/17 21:30 Dose: 10 mg Furosemide (Lasix -) 40 mg PO DAILY [facility] Last Admin: 09/01/17 10:50 Dose: 40 mg Vancomycin HCl 1,000 mg/ (Dextrose) 250 mls @ 166.667 mls/hr IVPB Q12H [facility] Last Admin: 09/02/17 01:45 Dose: 166.667 mls/hr Ceftriaxone Sodium 2 gm/ (Dextrose) 100 mls @ 200 mls/hr IVPB DAILY [facility] Last Admin: 09/01/17 09:50 Dose: 200 mls/hr Montelukast Sodium (Singulair -) 10 mg PO [facility] Last Admin: 09/01/17 21:30 Dose: 10 mg Oxycodone HCl (Roxicodone -) 10 mg PO Q4H PRN PRN Reason: PAIN Last Admin: 09/02/17 06:49 Dose: 10 mg Tamsulosin HCl (Flomax -) 0.4 mg PO DAILY@0830 [facility] Last Admin: 09/01/17 07:29 Dose: 0.4 mg Warfarin Sodium (Coumadin -) 10 mg PO DAILY@1800 [facility] Last Admin: 09/01/17 17:25 Dose: 10 mg - Objective Vital Signs: Vital Signs Temperature 98.7 F 09/02/17 06:00 Pulse Rate 74 09/02/17 06:00 Respiratory Rate 18 09/02/17 06:00 Blood Pressure 137/82 09/02/17 06:00 O2 Sat by Pulse Oximetry (%) 96 09/01/17 21:00 Constitutional: Yes: No Distress Cardiovascular: Yes: Regular Rate and Rhythm, S1, S2 Respiratory: Yes: CTA Bilaterally Gastrointestinal: Yes: Normal Bowel Sounds, Soft. No: Tenderness Extremities: Yes: Other (decreased R foot/ LE erythema/ warmth R foot and LE remains swollen) Labs: CBC, BMP 09/01/17 06:48 08/31/17 07:25 INR, PTT INR 2.93 (0.82-1.09) H D 09/01/17 06:48 Assessment/Plan Cellulitis R foot/ LE Hx MRSA soft tissue infection S/P AVR Leukopenia Continue empiric vancomycin/ ceftriaxone Elevation Repeat CBC
[2017-09-02] MEDS ORDERED: ATORVASTATIN CA 10 MG TABLET (FP) PO SCH (11:24)
--- NOTE | 2017-09-02 11:24 | PN ---
Progress Note (short form) - Note Progress Note: PULMONARY/MED Right ankle electric cell tender. No subjective fevers or chills. Some shortness of breath and wheezing. Last Vital Signs Temp Pulse Resp BP Pulse Ox 98.7 F 74 18 137/82 96 09/02/17 06:00 09/02/17 06:00 09/02/17 06:00 09/02/17 06:00 09/01/17 21:00 Gen: NAD at rest Heart: RRR Lung: scattered wheezes, rhonchi Abd: soft, nontender Ext: right ankle edema, tender to palpation CBC, BMP 09/01/17 06:48 08/31/17 07:25 Active Medications Acetaminophen (Tylenol -) 650 mg PO Q4H PRN PRN Reason: PAIN Stop: 09/02/17 17:41 Last Admin: 09/02/17 06:48 Dose: 650 mg Albuterol/Ipratropium (Duoneb -) 1 amp NEB TIDR [facility] Last Admin: 09/02/17 07:10 Dose: 1 amp Atorvastatin Calcium (Lipitor -) 10 mg PO [facility] Last Admin: 09/01/17 21:30 Dose: 10 mg Furosemide (Lasix -) 40 mg PO DAILY [facility] Last Admin: 09/02/17 10:23 Dose: 40 mg Vancomycin HCl 1,000 mg/ (Dextrose) 250 mls @ 166.667 mls/hr IVPB Q12H [facility] Last Admin: 09/02/17 01:45 Dose: 166.667 mls/hr Ceftriaxone Sodium 2 gm/ (Dextrose) 100 mls @ 200 mls/hr IVPB DAILY [facility] Last Admin: 09/02/17 10:24 Dose: 200 mls/hr Montelukast Sodium (Singulair -) 10 mg PO [facility] Last Admin: 09/01/17 21:30 Dose: 10 mg Oxycodone HCl (Roxicodone -) 10 mg PO Q4H PRN PRN Reason: PAIN Last Admin: 09/02/17 06:49 Dose: 10 mg Tamsulosin HCl (Flomax -) 0.4 mg PO DAILY@0830 [facility] Last Admin: 09/02/17 08:23 Dose: 0.4 mg Warfarin Sodium (Coumadin -) 10 mg PO DAILY@1800 [facility] Last Admin: 09/01/17 17:25 Dose: 10 mg A/P Cellulitis Asthma h/o AVR HTN Hypercholesterolemia h/o Prostate Ca - antibiotics per ID - inhaled bronchodilators - restart home symbicort - singulair - continue anticoagulation
[2017-09-02] MEDS ORDERED: ATORVASTATIN CA 40 MG TABLET (FP) PO SCH (11:26)
[2017-09-02] MEDS: BUDESONIDE/FORMETEROL FUMARATE 160/4.5 mcg INHALER IH SCH ×2 (12:37→21:13)
[2017-09-02 13:00] LABS: INR 1.84 (0.82-1.09); PROTHROMBIN TIME (PATIENT) 20.8 SEC (9.98-11.88)
[2017-09-02] MEDS: WARFARIN NA 10 MG TABLET (FP) PO SCH (17:00)
[2017-09-02] MEDS: LOSARTAN POTASSIUM 25 MG TABLET PO SCH (18:28)
[2017-09-02] MEDS: MONTELUKAST NA 10 MG TABLET PO SCH (21:10)
[2017-09-02] MEDS: ATORVASTATIN CA 40 MG TABLET (FP) PO SCH (21:10)
[2017-09-03] MEDS ORDERED: PT OWN MED DRAWER 7, Y5N ONE ×2 (01:29→21:56)
[2017-09-03] MEDS: VANCOMYCIN 1,000 MG in DEXTROSE 5%-WATER - 250 ML IVPB SCH (01:39)
[2017-09-03] MEDS: ALBUTEROL SO4 2.5/IPRATROPIUM 0.5 INH SOL 3 ML VIAL.NEB. NEB SCH ×2 (06:08→13:40)
[2017-09-03] MEDS: TAMSULOSIN HCL 0.4 MG CAP.ER.24H (FP) PO SCH (07:50)
[2017-09-03] MEDS: oxyCODONE HCL 5 MG TABLET PO PRN ×4 (07:50→21:58)
[2017-09-03 08:38] LABS: BASOPHIL 0.7 % (0-2.0); EOSINOPHIL 13.5 % (0-4.5); MCH 28.5 pg (25.7-33.7); MCHC 32.2 g/dl (32.0-35.9); MEAN CELL VOLUME 88.4 fl (80-96); MEAN PLT VOLUME 8.4 fl (7.5-11.1); NEUTROPHILS 44.1 % (42.8-82.8); PLATELET COUNT 250 K/MM3 (134-434); RDW 15.2 % (11.9-15.9); WHITE BLOOD COUNT 3.8 K/mm3 (4.0-10.0)
[2017-09-03 09:19] LABS: ANION GAP 3 (8-16); CALCIUM 8.8 mg/dL (8.5-10.1); CO2 31 mmol/L (21-32); CREATININE 0.9 mg/dL (0.7-1.3); GLUCOSE,RANDOM 84 mg/dL (74-106); MAGNESIUM 2.3 mg/dL (1.8-2.4); PHOSPHOROUS 3.1 mg/dL (2.5-4.9)
[2017-09-03 09:21] LABS: INR 1.85 (0.82-1.09); PROTHROMBIN TIME (PATIENT) 20.9 SEC (9.98-11.88)
[2017-09-03] MEDS: CEFTRIAXONE 2 GM in DEXTROSE 5%-WATER - 100 ML IVPB SCH (10:44)
[2017-09-03] MEDS: LOSARTAN POTASSIUM 25 MG TABLET PO SCH (10:44)
[2017-09-03] MEDS: FUROSEMIDE 40 MG TABLET (FP) PO SCH (10:44)
[2017-09-03] MEDS: BUDESONIDE/FORMETEROL FUMARATE 160/4.5 mcg INHALER IH SCH ×2 (10:45→21:57)
--- NOTE | 2017-09-03 12:17 | PN ---
Progress Note, Physician History of Present Illness: C/O R foot pain, brady when in dependent position No fever/ chills Afebrile BC no growth - Current Medication List Current Medications: Active Medications Albuterol/Ipratropium (Duoneb -) 1 amp NEB TIDR [facility] Last Admin: 09/03/17 06:08 Dose: Not Given Atorvastatin Calcium (Lipitor -) 40 mg PO HS [facility] Last Admin: 09/02/17 21:10 Dose: 40 mg Budesonide/Formoterol Fumarate (Symbicort 160/4.5mcg -) 2 puff IH BID [facility] Last Admin: 09/03/17 10:45 Dose: 2 puff Diltiazem HCl (Cardizem Cd -) 240 mg PO DAILY [facility] Last Admin: 09/03/17 10:44 Dose: 240 mg Furosemide (Lasix -) 40 mg PO DAILY [facility] Last Admin: 09/03/17 10:44 Dose: 40 mg Vancomycin HCl 1,000 mg/ (Dextrose) 250 mls @ 166.667 mls/hr IVPB Q12H [facility] Last Admin: 09/03/17 01:39 Dose: 166.667 mls/hr Ceftriaxone Sodium 2 gm/ (Dextrose) 100 mls @ 200 mls/hr IVPB DAILY [facility] Last Admin: 09/03/17 10:44 Dose: 200 mls/hr Losartan Potassium (Cozaar -) 25 mg PO DAILY [facility] Last Admin: 09/03/17 10:44 Dose: 25 mg Montelukast Sodium (Singulair -) 10 mg PO HS [facility] Last Admin: 09/02/17 21:10 Dose: 10 mg Oxycodone HCl (Roxicodone -) 10 mg PO Q4H PRN PRN Reason: PAIN Last Admin: 09/03/17 12:05 Dose: 10 mg Tamsulosin HCl (Flomax -) 0.4 mg PO DAILY@0830 [facility] Last Admin: 09/03/17 07:50 Dose: 0.4 mg Warfarin Sodium (Coumadin -) 10 mg PO DAILY@1800 [facility] Last Admin: 09/02/17 17:00 Dose: 10 mg - Objective Vital Signs: Vital Signs Temperature 97.9 F 09/03/17 06:00 Pulse Rate 88 09/03/17 10:00 Respiratory Rate 20 09/03/17 10:00 Blood Pressure 150/80 09/03/17 10:00 O2 Sat by Pulse Oximetry (%) 97 09/03/17 06:07 Constitutional: Yes: No Distress Cardiovascular: Yes: Regular Rate and Rhythm, S1, S2 Respiratory: Yes: CTA Bilaterally Gastrointestinal: Yes: Normal Bowel Sounds, Soft. No: Tenderness Extremities: Yes: Other (R foot / LE remains swollen, but erythema/ warmth resolved) Labs: CBC, BMP 09/03/17 07:12 09/03/17 07:12 INR, PTT INR 1.85 (0.82-1.09) H 09/03/17 07:12 Assessment/Plan Cellulitis R foot/ LE- resolved Hx MRSA soft tissue infection S/P AVR Leukopenia ? medication-induced D/C IV antibiotics P.O. Keflex x 72hr Elevation
[2017-09-03] MEDS: CEPHALEXIN MONOHYDRATE 500 MG CAPSULE (UD) PO SCH ×2 (13:29→21:58)
--- NOTE | 2017-09-03 14:43 | PN ---
Progress Note, Physician History of Present Illness: PULMONARY ALERT.C/O PAIN RLE,LESS SWELLING - Current Medication List Current Medications: Active Medications Albuterol/Ipratropium (Duoneb -) 1 amp NEB TIDR [facility] Last Admin: 09/03/17 06:08 Dose: Not Given Atorvastatin Calcium (Lipitor -) 40 mg PO HS [facility] Last Admin: 09/02/17 21:10 Dose: 40 mg Budesonide/Formoterol Fumarate (Symbicort 160/4.5mcg -) 2 puff IH BID [facility] Last Admin: 09/03/17 10:45 Dose: 2 puff Cephalexin HCl (Keflex -) 500 mg PO BID [facility] Last Admin: 09/03/17 13:29 Dose: 500 mg Diltiazem HCl (Cardizem Cd -) 240 mg PO DAILY [facility] Last Admin: 09/03/17 10:44 Dose: 240 mg Furosemide (Lasix -) 40 mg PO DAILY [facility] Last Admin: 09/03/17 10:44 Dose: 40 mg Losartan Potassium (Cozaar -) 25 mg PO DAILY [facility] Last Admin: 09/03/17 10:44 Dose: 25 mg Montelukast Sodium (Singulair -) 10 mg PO HS [facility] Last Admin: 09/02/17 21:10 Dose: 10 mg Oxycodone HCl (Roxicodone -) 10 mg PO Q4H PRN PRN Reason: PAIN Last Admin: 09/03/17 12:05 Dose: 10 mg Tamsulosin HCl (Flomax -) 0.4 mg PO DAILY@0830 [facility] Last Admin: 09/03/17 07:50 Dose: 0.4 mg Warfarin Sodium (Coumadin -) 10 mg PO DAILY@1800 [facility] Last Admin: 09/02/17 17:00 Dose: 10 mg - Objective Vital Signs: Vital Signs Temperature 98.6 F 09/03/17 14:36 Pulse Rate 80 09/03/17 14:36 Respiratory Rate 18 09/03/17 14:36 Blood Pressure 133/81 09/03/17 14:36 O2 Sat by Pulse Oximetry (%) 97 09/03/17 06:07 Constitutional: Yes: Well Nourished, Calm Eyes: Yes: WNL HENT: Yes: WNL Neck: Yes: WNL Cardiovascular: Yes: Regular Rate and Rhythm, S1, S2 Respiratory: Yes: Wheezes (FEW WHEEZES MENDY) Gastrointestinal: Yes: Normal Bowel Sounds, Soft Extremities: Yes: Other (LESS SWELLING RLE) Labs: CBC, BMP 09/03/17 07:12 09/03/17 07:12 INR, PTT INR 1.85 (0.82-1.09) H 09/03/17 07:12 Assessment/Plan Problem List - Problems (1) Asthma Code(s): J45.909 - UNSPECIFIED ASTHMA, UNCOMPLICATED Qualifiers: Asthma severity: severe persistent Asthma complication type: with acute exacerbation Qualified Code(s): J45.51 - Severe persistent asthma with (acute) exacerbation; J45.51 - Severe persistent asthma with (acute) exacerbation; J45.51 - Severe persistent asthma with (acute) exacerbation (2) Cellulitis of foot Code(s): L03.119 - CELLULITIS OF UNSPECIFIED PART OF LIMB (3) Class 2 obesity with body mass index (BMI) of 35 to 39.9 without comorbidity Code(s): E66.01 - MORBID (SEVERE) OBESITY DUE TO EXCESS CALORIES (4) Aortic valve replaced Code(s): Z95.2 - PRESENCE OF PROSTHETIC HEART VALVE (5) Ankle cellulitis Code(s): L03.119 - CELLULITIS OF UNSPECIFIED PART OF LIMB Assessment/Plan ABX per ID Check INR CPAP @ 9 cm H2O QHS AC with Coumadin BD [place] PRN DR ONTIVEROS
[2017-09-03] MEDS ORDERED: WARFARIN NA 10 MG, WARFARIN NA 1 MG PO ONE (18:00)
[2017-09-03] MEDS ORDERED: WARFARIN NA 10 MG TABLET (FP) PO ONE (18:00)
[2017-09-03] MEDS: MONTELUKAST NA 10 MG TABLET PO SCH (21:58)
[2017-09-03] MEDS: ATORVASTATIN CA 40 MG TABLET (FP) PO SCH (21:58)
[2017-09-04] MEDS: ALBUTEROL SO4 2.5/IPRATROPIUM 0.5 INH SOL 3 ML VIAL.NEB. NEB SCH ×4 (00:13→23:20)
[2017-09-04] MEDS ORDERED: PT OWN MED DRAWER 7, Y5N ONE (09:50)
[2017-09-04] MEDS: TAMSULOSIN HCL 0.4 MG CAP.ER.24H (FP) PO SCH (10:03)
[2017-09-04] MEDS: FUROSEMIDE 40 MG TABLET (FP) PO SCH (10:03)
[2017-09-04] MEDS: CEPHALEXIN MONOHYDRATE 500 MG CAPSULE (UD) PO SCH ×2 (10:04→22:24)
[2017-09-04] MEDS: LOSARTAN POTASSIUM 25 MG TABLET PO SCH (10:04)
[2017-09-04] MEDS: BUDESONIDE/FORMETEROL FUMARATE 160/4.5 mcg INHALER IH SCH ×2 (10:07→22:24)
--- NOTE | 2017-09-04 15:20 | PN ---
Progress Note, Physician History of Present Illness: pulmonary alert,no distress,less lower ext pain - Current Medication List Current Medications: Active Medications Albuterol/Ipratropium (Duoneb -) 1 amp NEB TIDR [facility] Last Admin: 09/04/17 14:35 Dose: Not Given Atorvastatin Calcium (Lipitor -) 40 mg PO HS [facility] Last Admin: 09/03/17 21:58 Dose: 40 mg Budesonide/Formoterol Fumarate (Symbicort 160/4.5mcg -) 2 puff IH BID [facility] Last Admin: 09/04/17 10:07 Dose: 2 puff Cephalexin HCl (Keflex -) 500 mg PO BID [facility] Last Admin: 09/04/17 10:04 Dose: 500 mg Diltiazem HCl (Cardizem Cd -) 240 mg PO DAILY [facility] Last Admin: 09/04/17 10:04 Dose: 240 mg Furosemide (Lasix -) 40 mg PO DAILY [facility] Last Admin: 09/04/17 10:03 Dose: 40 mg Losartan Potassium (Cozaar -) 25 mg PO DAILY [facility] Last Admin: 09/04/17 10:04 Dose: 25 mg Montelukast Sodium (Singulair -) 10 mg PO HS [facility] Last Admin: 09/03/17 21:58 Dose: 10 mg Oxycodone HCl (Roxicodone -) 10 mg PO Q4H PRN PRN Reason: PAIN Last Admin: 09/03/17 21:58 Dose: 10 mg Tamsulosin HCl (Flomax -) 0.4 mg PO DAILY@0830 [facility] Last Admin: 09/04/17 10:03 Dose: 0.4 mg - Objective Vital Signs: Vital Signs Temperature 97.9 F 09/04/17 14:00 Pulse Rate 72 09/04/17 14:00 Respiratory Rate 20 09/04/17 14:00 Blood Pressure 126/73 09/04/17 14:00 O2 Sat by Pulse Oximetry (%) 93 L 09/04/17 11:44 Constitutional: Yes: Well Nourished, Calm Eyes: Yes: WNL HENT: Yes: WNL Neck: Yes: WNL Cardiovascular: Yes: Regular Rate and Rhythm, S1, S2 Extremities: Yes: WNL, Other (less swelling rle) Labs: CBC, BMP 09/03/17 07:12 09/03/17 07:12 INR, PTT INR 1.85 (0.82-1.09) H 09/03/17 07:12 Assessment/Plan Problem List - Problems (1) Asthma Code(s): J45.909 - UNSPECIFIED ASTHMA, UNCOMPLICATED Qualifiers: Asthma severity: severe persistent Asthma complication type: with acute exacerbation Qualified Code(s): J45.51 - Severe persistent asthma with (acute) exacerbation; J45.51 - Severe persistent asthma with (acute) exacerbation; J45.51 - Severe persistent asthma with (acute) exacerbation (2) Cellulitis of foot Code(s): L03.119 - CELLULITIS OF UNSPECIFIED PART OF LIMB (3) Class 2 obesity with body mass index (BMI) of 35 to 39.9 without comorbidity Code(s): E66.01 - MORBID (SEVERE) OBESITY DUE TO EXCESS CALORIES (4) Aortic valve replaced Code(s): Z95.2 - PRESENCE OF PROSTHETIC HEART VALVE (5) Ankle cellulitis Code(s): L03.119 - CELLULITIS OF UNSPECIFIED PART OF LIMB Assessment/Plan ABX per ID Check INR CPAP @ 9 cm H2O QHS AC with Coumadin BD TX PRN CBC DC home am DR ONTIVEROS
[2017-09-04] MEDS: oxyCODONE HCL 5 MG TABLET PO PRN ×2 (15:46→22:24)
[2017-09-04] MEDS ORDERED: WARFARIN NA 10 MG, WARFARIN NA 1 MG PO ONE (19:45)
[2017-09-04] MEDS: ATORVASTATIN CA 40 MG TABLET (FP) PO SCH (22:24)
[2017-09-04] MEDS: MONTELUKAST NA 10 MG TABLET PO SCH (22:26)
[2017-09-05 09:06] LABS: EOSINOPHIL 10.1 % (0-4.5); MCH 28.9 pg (25.7-33.7); MCHC 32.5 g/dl (32.0-35.9); MEAN CELL VOLUME 88.8 fl (80-96); MEAN PLT VOLUME 8.2 fl (7.5-11.1); NEUTROPHILS 47.6 % (42.8-82.8); PLATELET COUNT 271 K/MM3 (134-434); RDW 15.2 % (11.9-15.9)
[2017-09-05] MEDS: LOSARTAN POTASSIUM 25 MG TABLET PO SCH (09:14)
[2017-09-05] MEDS: TAMSULOSIN HCL 0.4 MG CAP.ER.24H (FP) PO SCH (09:14)
[2017-09-05] MEDS: FUROSEMIDE 40 MG TABLET (FP) PO SCH (09:14)
[2017-09-05] MEDS: CEPHALEXIN MONOHYDRATE 500 MG CAPSULE (UD) PO SCH (09:14)
[2017-09-05] MEDS: BUDESONIDE/FORMETEROL FUMARATE 160/4.5 mcg INHALER IH SCH (09:16)
[2017-09-05] MEDS: oxyCODONE HCL 5 MG TABLET PO PRN (09:18)
[2017-09-05 09:31] LABS: INR 1.91 (0.82-1.09); PROTHROMBIN TIME (PATIENT) 21.6 SEC (9.98-11.88)
--- NOTE | 2017-09-05 13:42 | PN ---
Progress Note, Physician History of Present Illness: pulmonary alert,nad,-sob,rle much improved - Current Medication List Current Medications: Active Medications Atorvastatin Calcium (Lipitor -) 40 mg PO HS [facility] Last Admin: 09/04/17 22:24 Dose: 40 mg Budesonide/Formoterol Fumarate (Symbicort 160/4.5mcg -) 2 puff IH BID [facility] Last Admin: 09/05/17 09:16 Dose: 2 puff Cephalexin HCl (Keflex -) 500 mg PO BID [facility] Last Admin: 09/05/17 09:14 Dose: 500 mg Diltiazem HCl (Cardizem Cd -) 240 mg PO DAILY [facility] Last Admin: 09/05/17 09:14 Dose: 240 mg Furosemide (Lasix -) 40 mg PO DAILY [facility] Last Admin: 09/05/17 09:14 Dose: 40 mg Losartan Potassium (Cozaar -) 25 mg PO DAILY [facility] Last Admin: 09/05/17 09:14 Dose: 25 mg Montelukast Sodium (Singulair -) 10 mg PO [facility] Last Admin: 09/04/17 22:26 Dose: 10 mg Tamsulosin HCl (Flomax -) 0.4 mg PO DAILY@0830 [facility] Last Admin: 09/05/17 09:14 Dose: 0.4 mg - Objective Vital Signs: Vital Signs Temperature 98.1 F 09/05/17 09:15 Pulse Rate 116 H 09/05/17 10:58 Respiratory Rate 18 09/05/17 09:15 Blood Pressure 145/90 09/05/17 09:15 O2 Sat by Pulse Oximetry (%) 96 09/05/17 10:58 Constitutional: Yes: Well Nourished, Calm Eyes: Yes: WNL HENT: Yes: WNL Neck: Yes: WNL Cardiovascular: Yes: Regular Rate and Rhythm, S1, S2 Respiratory: Yes: CTA Bilaterally Gastrointestinal: Yes: Normal Bowel Sounds, Soft Extremities: Yes: WNL Edema: Yes Labs: CBC, BMP 09/05/17 08:00 INR, PTT INR 1.91 (0.82-1.09) H 09/05/17 08:00 Assessment/Plan Problem List - Problems (1) Asthma Code(s): J45.909 - UNSPECIFIED ASTHMA, UNCOMPLICATED Qualifiers: Asthma severity: severe persistent Asthma complication type: with acute exacerbation Qualified Code(s): J45.51 - Severe persistent asthma with (acute) exacerbation; J45.51 - Severe persistent asthma with (acute) exacerbation; J45.51 - Severe persistent asthma with (acute) exacerbation (2) Cellulitis of foot Code(s): L03.119 - CELLULITIS OF UNSPECIFIED PART OF LIMB (3) Class 2 obesity with body mass index (BMI) of 35 to 39.9 without comorbidity Code(s): E66.01 - MORBID (SEVERE) OBESITY DUE TO EXCESS CALORIES (4) Aortic valve replaced Code(s): Z95.2 - PRESENCE OF PROSTHETIC HEART VALVE (5) Ankle cellulitis Code(s): L03.119 - CELLULITIS OF UNSPECIFIED PART OF LIMB Assessment/Plan ABX INR OUTPATIENT CPAP @ 9 cm H2O QHS AC with Coumadin BD TX PRN CBC DC home KEFLEX 500MG PO BID X [address] ONTIVEROS
[2017-09-05] MEDS ORDERED: WARFARIN NA 10 MG, WARFARIN NA 1 MG PO ONE (14:15)
[2017-09-05 14:22] VITALS: BP 96/48; PULSE 73; TEMP 98.3
== END 2017-09-05 15:16 | disposition home or self-care (01) | DRG 603 ==
LOC: JER 11:51 → JERBED 15:08 → J6S 08-31 17:32 → JERBED 09-04 21:21 → J6S 09-04 21:22
PROVIDERS: ADMIT Specialist; ATTEND Specialist
DX: L03.115 Cellulitis of right lower limb (principal); I25.10 Atherosclerotic heart disease of native coronary artery without angina pectoris; I10 Essential (primary) hypertension; E78.5 Hyperlipidemia, unspecified; J45.909 Unspecified asthma, uncomplicated; E66.9 Obesity, unspecified; Z68.34 Body mass index [BMI] 34.0-34.9, adult; Z95.2 Presence of prosthetic heart valve; D72.819 Decreased white blood cell count, unspecified; Z85.46 Personal history of malignant neoplasm of prostate; Z96.653 Presence of artificial knee joint, bilateral
CPT/HCPCS: 36415; 80048; 80053; 81003; 82550; 83735; 84100; 84484; 85025; 85027; 85610; 87040; 87081; 87086; 90670; 90688; 93005; 93010; 94640; 94660; 99285-25; G0008; G0009; G0480

== ENCOUNTER 2017-11-03 10:33 | Emergency (ER) | payer BC, OTHER ==
[2017-11-03 10:38] VITALS: TEMP 98.7; BMI 34.8
--- NOTE | 2017-11-03 11:15 | PDOC ---
History of Present Illness - General History Source: Patient Exam Limitations: No Limitations <Dianne Almanza - Last Filed: 11/03/17 13:46> - General History Source: Patient Exam Limitations: No Limitations - History of Present Illness Initial Comments: 11/03/17 13:59 The patient is a 62 year old male with a significant PMH of prostate CA, asthma , CAD s/p aortic valve replacement (on Coumadin) , peptic ulcers, MRSA, HTN, and hyperlipidemia who presents to the emergency department with left ankle swelling, pain, and redness beginning approximately 3 days ago. The patient notes he only feels pain along the lateral aspect of his left foot. The patient reports having an episode of cellulitis in his right foot on 08/30/17, which he was admitted here 1 week for. The patient denies any swelling or pain to his right foot at this time. Allergies: Aspirin, NSAIDS Past surgical history: Aortic valve replacement. Social history: Social alcohol use. No reported cigarette or drug use. PCP: Dr. Dias <Noel Parnell - Last Filed: 11/03/17 14:02> - General Chief Complaint: Redness To Affected Area Stated Complaint: CELLULITIS/ LT FOOT Time Seen by Provider: 11/03/17 11:14 Past History - Past Medical History Anemia: No Asthma: Yes Cancer: Yes (prostate) Cardiac Disorders: Yes COPD: No Dementia: No GI Disorders: Yes (peptic ulcer, GERD) HTN: Yes Hypercholesterolemia: Yes Seizures: No Thyroid Disease: No - Surgical History Cardiac Surgery: Yes (AORTIC VALVE) Neurologic Surgery: No Orthopedic Surgery: Yes (RIGHT TOTAL KNEE 05/12) - Immunization History Immunization Up to Date: Yes - Suicide/Smoking/Psychosocial Hx Smoking Status: No Smoking History: Never smoked Have you smoked in the past 12 months: No Number of Cigarettes Smoked Daily: 0 Hx Alcohol Use: Yes (SOCIAL) Drug/Substance Use Hx: No Substance Use Type: None Hx Substance Use Treatment: No <Dianne Almanza - Last Filed: 11/03/17 13:46> <Noel Parnell - Last Filed: 11/03/17 14:02> - Past Medical History Allergies/Adverse Reactions: Allergies Allergy/AdvReac Type Severity Reaction Status Date / Time aspirin Allergy Verified 11/03/17 10:38 NSAIDS (Non-Steroidal Allergy Verified 11/03/17 10:38 Anti-Inflamma crabs Allergy Uncoded 11/03/17 10:38 lobsters Allergy Uncoded 11/03/17 10:38 shrimp Allergy Uncoded 11/03/17 10:38 Home Medications: Ambulatory Orders Atorvastatin Ca [Lipitor] 40 mg PO HS 06/25/14 Furosemide [Lasix -] 40 mg PO DAILY #30 tablet 06/11/16 Albuterol Sulfate Inhaler - [Ventolin HFA Inhaler -] 1 - 2 inh PO Q4H PRN #1 inhaler 03/22/17 Methocarbamol [Robaxin-750] 750 mg PO BID #20 tablet 07/21/17 Clindamycin [Cleocin -] 300 mg PO TID #30 capsule 08/26/17 Warfarin Sodium 10 mg PO ASDIR 08/26/17 Diltiazem Cd [Cardizem Cd -] 240 mg PO DAILY 08/30/17 Losartan Potassium [Cozaar -] 25 mg PO DAILY 08/30/17 Tamsulosin HCl [Flomax] 0.4 mg PO DAILY 08/30/17 Bifidobacterium Infantis [Align] 10.5 mg PO DAILY #30 tab.chew 11/03/17 Clindamycin [Cleocin -] 300 mg PO TID #30 capsule 11/03/17 Oxycodone HCl/Acetaminophen [Percocet 5-325 mg Tablet] 1 - 2 tab PO Q6H Review of Systems - Review of Systems Able to Perform ROS?: Yes Comments:: 11/03/17 13:59 GENERAL/CONSTITUTIONAL: No fever or chills. No weakness. HEAD, EYES, EARS, NOSE AND THROAT: No change in vision. No ear pain or discharge. No sore throat. CARDIOVASCULAR: No chest pain or shortness of breath. RESPIRATORY: No cough, wheezing, or hemoptysis. GASTROINTESTINAL: No nausea, vomiting, diarrhea or constipation. GENITOURINARY: No dysuria, frequency, or change in urination. MUSCULOSKELETAL: (+) Left ankle swelling and pain. No neck or back pain. SKIN: (+) Left ankle redness. NEUROLOGIC: No headache, vertigo, loss of consciousness, or change in strength/ sensation. ENDOCRINE: No increased thirst. No abnormal weight change. HEMATOLOGIC/LYMPHATIC: No anemia, easy bleeding, or history of blood clots. ALLERGIC/IMMUNOLOGIC: No hives or skin allergy. <Noel Parnell - Last Filed: 11/03/17 14:02> *Physical Exam - Vital Signs Last Vital Signs Temp Pulse Resp BP Pulse Ox 98.7 F 88 20 132/99 97 11/03/17 10:34 11/03/17 10:34 11/03/17 10:34 11/03/17 10:34 11/03/17 10:34 <Dianne Almanza - Last Filed: 11/03/17 13:46> - Vital Signs Last Vital Signs Temp Pulse Resp BP Pulse Ox 98.7 F 88 20 132/99 97 11/03/17 10:34 11/03/17 10:34 11/03/17 10:34 11/03/17 10:34 11/03/17 10:34 - Physical Exam Comments: 11/03/17 13:59 GENERAL: The patient is in no acute distress. HEAD: Normal with no signs of trauma. EYES: PERRLA, EOMI, sclera anicteric, conjunctiva clear. ENT: Ears normal, nares patent, oropharynx clear without exudates. Moist mucous membranes. NECK: Normal range of motion, supple without lymphadenopathy, JVD, or masses. LUNGS: Breath sounds equal, clear to auscultation bilaterally. No wheezes, and no crackles. HEART:Regular rate and rhythm, normal S1 and S2 without murmur, rub or gallop. ABDOMEN: Soft, nontender, normoactive bowel sounds. No guarding, no rebound. No masses palpable. EXTREMITIES: Normal range of motion, no edema. No clubbing or cyanosis. No erythema, or tenderness. NEUROLOGICAL: Cranial nerves II through XII grossly intact. Normal speech. No focal neurological deficits. MUSCULOSKELETAL: (+) Left ankle edema, erythema, and tender to palpation over lateral malleolus. Back non-tender to palpation, no CVA tenderness SKIN: Warm, Dry, normal turgor, no lesions noted. <Noel Parnell - Last Filed: 11/03/17 14:02> ED Treatment Course - LABORATORY CBC & Chemistry Diagram: 11/03/17 12:13 11/03/17 12:13 <Dianne Almanza - Last Filed: 11/03/17 13:46> - LABORATORY CBC & Chemistry Diagram: 11/03/17 12:13 11/03/17 12:13 - ADDITIONAL ORDERS Additional order review: Laboratory Results 11/03/17 11/03/17 12:13 12:13 PT with INR 20.40 H INR 1.81 H Sodium 143 Potassium 4.1 Chloride 108 H Carbon Dioxide 27 Anion Gap 8 BUN 18 D Creatinine 1.1 D Creat Clearance w eGFR > 60 Random Glucose 93 Calcium 9.2 Total Bilirubin 0.7 D AST 28 ALT 33 Alkaline Phosphatase 70 Total Protein 6.4 Albumin 3.3 L 11/03/17 12:13 RBC 4.55 MCV 90.5 MCHC 31.5 L RDW 16.3 H MPV 9.4 D Neutrophils % 55.8 Lymphocytes % 23.5 D Monocytes % 11.4 H Eosinophils % 8.2 H Basophils % 1.1 - Medications Given in the ED: ED Medications Discontinued Medications Generic Name Dose Route Start Last Admin Trade Name Freq PRN Reason Stop Dose Admin Acetaminophen/Codeine Phosphate 1 tab 11/03/17 11:31 11/03/17 12:18 Tylenol # 3 - PO 11/03/17 11:32 1 tab ONCE ONE Administration Vancomycin HCl 1,000 mg/ 250 mls @ 250 mls/hr 11/03/17 11:31 11/03/17 12:18 Dextrose IVPB 11/03/17 12:30 250 mls/hr ONCE STA Administration Protocol - Consult/PCP Time Called: 13:25 Case discussed with personal care physician: Claudio Dias Joel - Last Filed: 11/03/17 14:02> Medical Decision Making - Medical Decision Making 11/03/17 12:28 This is a 62-year-old male with a history of hypertension, asthma, history of prostate CA, history of hyperlipidemia who presents emergency department with a complaint of left lotion be pain, erythema, concerning for cellulitis. Patient had a recent admission for right lower extremity cellulitis after failing outpatient therapy. Currently patient states his symptoms began about 3 days ago. No associated fevers or chills. Patient is ambulatory with no difficulty Pt denies known trauma to the area On examination: Left ankle swelling Left ankle erythema No lacerations noted Foot is warm Pt able to range ankle Pt is ambulatory Will do: labs, x ray, pain medications, IV abx DD: cellulitis, gout, abscess, septic arthritis I Pt can not stay in the hospital due to personal issues that he has to take care of Will give IV abx Will plan to discharge with PMD follow up 11/03/17 13:46 Laboratory Tests 11/03/17 11/03/17 11/03/17 12:13 12:13 12:13 WBC 5.5 D Hgb 13.0 Hct 41.2 Plt Count 168 D INR 1.81 H Sodium 143 Potassium 4.1 Chloride 108 H Carbon Dioxide 27 BUN 18 D Creatinine 1.1 D Random Glucose 93 11/03/17 13:48 No WBC elevation, no evidence of septic arthritis given pt can range his ankle, no h/o gout Case reviewed with patient's primary care physician. Patient can be discharged home on antibiotics. Patient can be followed up in the office Pt given strict instructions Return for worsening erythema, swelling, pain, any other concerns or complaints Clinical Impression: Left lower extremity cellulitis, initial presentation <Dianne Almanza - Last Filed: 11/03/17 13:46> *DC/Admit/Observation/Transfer - Discharge Dispostion Admit: No <Dianne Almanza - Last Filed: 11/03/17 13:46> - Attestations Scribe Attestion: 11/03/17 13:59 Documentation prepared by Noel Parnell, acting as medical imaging tech for Dianne Almanza MD. <Noel Parnell - Last Filed: 11/03/17 14:02> Diagnosis at time of Disposition: Ankle cellulitis - Discharge Dispostion Disposition: HOME Condition at time of disposition: Stable - Prescriptions Prescriptions: Bifidobacterium Infantis [Align] 10.5 mg PO DAILY #30 tab.chew Clindamycin [Cleocin -] 300 mg PO TID #30 capsule - Referrals Referrals: Claudio Dias MD [Primary Care Provider] - - Patient Instructions Printed Discharge Instructions: DI for Cellulitis -- Adult Additional Instructions: Mr. Greenberg Thank you for coming into the emergency department today. It appears that you have cellulitis of your left ankle. Please monitor for spreading of the redness appear leg. Please monitor for fevers, chills. Please monitor for increased pain. If he noticed any bee stings, you must return to the emergency department. Please follow up with your primary care physician within one week. Please take antibiotics as prescribed. Please also take probiotic which was prescribed for you This antibiotic can cause diarrhea, if you notice severe diarrhea and abdominal pain, you must follow up with your primary care physician - Post Discharge Activity
[2017-11-03] MEDS ORDERED: VANCOMYCIN 1,000 MG in DEXTROSE 5%-WATER - 250 ML IVPB STA (11:31)
[2017-11-03] MEDS ORDERED: ACETAMINOPHEN WITH CODEINE 300MG/30MG TABLET PO ONE (11:31)
[2017-11-03] MEDS ORDERED: ACETAMINOPHEN WITH CODEINE 300MG/30MG TABLET ONE (12:06)
[2017-11-03] MEDS ORDERED: VANCOMYCIN 1 GRAM (PRE-DOCKED) 1,000 MG/250 ML BAG IVPB ONE (12:06)
[2017-11-03 12:42] LABS: BASO % 1.1 % (0-2.0); EOS % 8.2 % (0-4.5); HEMATOCRIT 41.2 % (35.4-49); INR 1.81 (0.82-1.09); LYMPH % 23.5 % (8-40); MCH 28.5 pg (25.7-33.7); MCHC 31.5 g/dl (32.0-35.9); MEAN CELL VOLUME 90.5 fl (80-96); MEAN PLT VOLUME 9.4 fl (7.5-11.1); MONO % 11.4 % (3.8-10.2); NEUT % 55.8 % (42.8-82.8); PLATELET COUNT 168 K/MM3 (134-434); PROTHROMBIN TIME (PATIENT) 20.4 SEC (9.98-11.88); RBC 4.55 M/mm3 (4.00-5.60); RDW 16.3 % (11.9-15.9); WHITE BLOOD COUNT 5.5 K/mm3 (4.0-10.0)
[2017-11-03 12:48] LABS: ALBUMIN 3.3 g/dl (3.4-5.0); ANION GAP 8 (8-16); BILIRUBIN,TOTAL 0.7 mg/dL (0.2-1.0); BLOOD UREA NITROGEN 18 mg/dL (7-18); CALCIUM 9.2 mg/dL (8.5-10.1); CHLORIDE 108 mmol/L (98-107); CO2 27 mmol/L (21-32); CREATININE 1.1 mg/dL (0.7-1.3); GLUCOSE,RANDOM 93 mg/dL (74-106); POTASSIUM 4.1 mmol/L (3.5-5.1); SGOT/AST 28 U/L (15-37); SGPT/ALT 33 U/L (12-78); SODIUM 143 mmol/L (136-145); TOT PROT 6.4 g/dl (6.4-8.2)
[2017-11-03 12:49] LABS: ALK PHOS 70 U/L (45-117)
[2017-11-03 14:15] VITALS: BP 128/78; PULSE 82
== END 2017-11-03 14:13 | disposition home or self-care (01) ==
LOC: JER 10:33
DX: L03.116 Cellulitis of left lower limb (principal); J45.909 Unspecified asthma, uncomplicated; I25.10 Atherosclerotic heart disease of native coronary artery without angina pectoris; Z85.46 Personal history of malignant neoplasm of prostate; Z79.01 Long term (current) use of anticoagulants; Z86.14 Personal history of Methicillin resistant Staphylococcus aureus infection; I10 Essential (primary) hypertension; E78.5 Hyperlipidemia, unspecified
CPT/HCPCS: 36415; 73610-TC-LT; 73630-TC-LT; 80053; 85025; 85610; 87040; 99283-25

== ENCOUNTER 2018-05-28 17:18 | Emergency (ER) | payer BC, OTHER ==
[2018-05-28 17:33] VITALS: TEMP 98.5; BMI 37.3
--- NOTE | 2018-05-28 18:15 | PDOC ---
History of Present Illness - General Chief Complaint: Redness To Affected Area Stated Complaint: CELLULITIS Time Seen by Provider: 05/28/18 18:15 - History of Present Illness Initial Comments: The patient is a 62M with a history of MRSA, and CAD s/p AVR (Warfarin) presents for evaluation of cellulitis to L ankle since Wednesday s/p scratch which progressed to throbbing pain this AM with sw Tried tylenol and perc with pain relief 3wks ago, cellulitis here R ankle 10d Clinda no f/u Past History - Past Medical History Allergies/Adverse Reactions: Allergies Allergy/AdvReac Type Severity Reaction Status Date / Time aspirin Allergy Verified 05/28/18 17:33 NSAIDS (Non-Steroidal Allergy Verified 05/28/18 17:33 Anti-Inflamma crabs Allergy Uncoded 05/28/18 17:33 lobsters Allergy Uncoded 05/28/18 17:33 shrimp Allergy Uncoded 05/28/18 17:33 Home Medications: Ambulatory Orders Albuterol Sulfate Inhaler - [Ventolin HFA Inhaler -] 1 - 2 inh PO Q4H PRN #1 inhaler 03/22/17 Warfarin Sodium 10 mg PO ASDIR 08/26/17 Diltiazem Cd [Cardizem Cd -] 240 mg PO DAILY 08/30/17 Tamsulosin HCl [Flomax] 0.4 mg PO DAILY 08/30/17 Cephalexin [Keflex] 500 mg PO QID 7 Days #28 capsule 05/28/18 Olmesartan Medoxomil [Benicar] 10 mg PO DAILY 05/28/18 Sulfamethoxazole/Trimethoprim [Bactrim Ds -] 1 tab PO BID 7 Days #14 tablet Anemia: No Asthma: Yes Cancer: Yes (prostate) Cardiac Disorders: Yes COPD: No Dementia: No GI Disorders: Yes (peptic ulcer, GERD) HTN: Yes Hypercholesterolemia: Yes Seizures: No Thyroid Disease: No - Surgical History Cardiac Surgery: Yes (AORTIC VALVE) Neurologic Surgery: No Orthopedic Surgery: Yes (RIGHT TOTAL KNEE 05/12) - Immunization History Immunization Up to Date: Yes - Suicide/Smoking/Psychosocial Hx Smoking Status: No Smoking History: Never smoked Have you smoked in the past 12 months: No Number of Cigarettes Smoked Daily: 0 Hx Alcohol Use: No Drug/Substance Use Hx: No Substance Use Type: None Hx Substance Use Treatment: No *Physical Exam - Vital Signs Last Vital Signs Temp Pulse Resp BP Pulse Ox 98.5 F 106 H 20 121/73 97 05/28/18 17:30 05/28/18 17:30 05/28/18 17:30 05/28/18 17:30 05/28/18 17:30 ED Treatment Course - LABORATORY CBC & Chemistry Diagram: 05/28/18 21:30 05/28/18 21:30 *DC/Admit/Observation/Transfer Diagnosis at time of Disposition: Ankle cellulitis - Discharge Dispostion Disposition: HOME Condition at time of disposition: Stable Decision to Admit order: No - Prescriptions Prescriptions: Cephalexin [Keflex] 500 mg PO QID 7 Days #28 capsule Sulfamethoxazole/Trimethoprim [Bactrim Ds -] 1 tab PO BID 7 Days #14 tablet - Referrals - Patient Instructions Printed Discharge Instructions: DI for Cellulitis -- Adult Additional Instructions: You were seen today in the Emergency Department for left ankle cellulitis. You were prescribed antibiotics that were sent to your pharmacy in [place]. Please take them as directed. Also refer to the handouts provided at discharge. Follow up with your primary care provider within 1-3 days. Return to the Emergency Department if you begin to experience fevers, worsening pain/swelling/ redness, or new concerning symptoms. - Post Discharge Activity
[2018-05-28] MEDS ORDERED: ACETAMINOPHEN 325 MG TABLET (FP) PO ONE (20:26)
--- NOTE | 2018-05-28 20:40 | PDOC ---
Attending Attestation - Resident Resident Name: Bryce Amador - ED Attending Attestation I have performed the following: I have examined & evaluated the patient, The case was reviewed & discussed with the resident, I agree w/resident's findings & plan, Exceptions are as noted - HPI HPI: 05/28/18 20:37 The patient is a 62 year old male with past medical history of CAD s/p AVR ( Warfarin), Osteoarthritis (s/p B/L TKR (12/2013; 2011)), HTN, HLD, Aortic valve replacement, Asthma, Sleep Apnea, Prostate CA, GERD, Samters Triad, Joint Replacement (R TKR 2011; L TKR 2013), heart valve replacement (on coumadin) and dx of Cellulitis to the R. foot on 05/12/2018 (discharged home with Clindamycin ) presents to the emergency department with L. medial ankle swelling. The patient presents with swelling to the L. foot thats been progressively worsening s/p scratching it on Wednesday, followed by an onset of throbbing pain earlier today, relief noted with Tylenol and Percocet. PCP is Dr. Smith Allergies: aspirin, NSAIDS, crabs, lobsters and shrimp. Social history: None reported on exam - warmth over medial ankle,indurate, non fluctuant, n odischarge,+skin breakage/dry skin, no signs of streaking, no calf tenderness or swelling pulm: mild wheezing b/l, no actue respiratory distress suspect cellulitis will treat with bactrim/keflex will have fu with PMD pt took his own neb with resolution of his sob/wheezing return precautions were discussed - Physicial Exam PE: 05/30/18 08:55 see above - Medical Decision Making bedside US noted for cobblestoning no collection noted will give pt rx for abx will dfer labs at this time return precautions were dsicussed pmd fu
[2018-05-28] MEDS ORDERED: ACETAMINOPHEN 325 MG TABLET (FP) ONE (20:42)
[2018-05-28] MEDS ORDERED: SULFAMETHOXAZOLE/TRIMETHOPRIM 800MG/160MG D.S. TABLET PO ONE (20:43)
[2018-05-28] MEDS ORDERED: CEPHALEXIN 250 MG/5 ML ORAL SUSPENSION PO ONE (20:43)
[2018-05-28] MEDS ORDERED: ALBUTEROL SO4 2.5/IPRATROPIUM 0.5 INH SOL 3 ML VIAL.NEB. NEB ONE (20:48)
[2018-05-28] MEDS ORDERED: CEPHALEXIN MONOHYDRATE 500 MG CAPSULE (UD) ONE (21:10)
[2018-05-28] MEDS ORDERED: SULFAMETHOXAZOLE/TRIMETHOPRIM 800MG/160MG D.S. TABLET ONE (21:11)
[2018-05-28] MEDS ORDERED: ALBUTEROL SO4 0.083% IH SOL 2.5 MG/3 ML VIAL.NEB. NEB ONE (21:22)
[2018-05-28 21:43] VITALS: BP 155/91; PULSE 86
[2018-05-28 21:43] LABS: HEMOGLOBIN 12.5 GM/dL (11.7-16.9); MCH 29.9 pg (25.7-33.7); MCHC 32.8 g/dl (32.0-35.9); MEAN CELL VOLUME 91.1 fl (80-96); MEAN PLT VOLUME 9.7 fl (7.5-11.1); PLATELET COUNT 131 K/MM3 (134-434); RBC 4.18 M/mm3 (4.00-5.60); RDW 14.4 % (11.9-15.9); WHITE BLOOD COUNT 17.4 K/mm3 (4.0-10.0)
[2018-05-28 22:09] LABS: ANION GAP 8 (8-16); BLOOD UREA NITROGEN 19 mg/dL (7-18); CALCIUM 9.1 mg/dL (8.5-10.1); CHLORIDE 109 mmol/L (98-107); CO2 26 mmol/L (21-32); CREATININE 1.3 mg/dL (0.7-1.3); GLUCOSE,RANDOM 76 mg/dL (74-106); POTASSIUM 4.2 mmol/L (3.5-5.1); SODIUM 143 mmol/L (136-145)
== END 2018-05-28 22:08 | disposition home or self-care (01) ==
LOC: JER 17:18
DX: L03.116 Cellulitis of left lower limb (principal); I25.10 Atherosclerotic heart disease of native coronary artery without angina pectoris; I10 Essential (primary) hypertension; Z79.01 Long term (current) use of anticoagulants; Z95.2 Presence of prosthetic heart valve; E78.00 Pure hypercholesterolemia, unspecified; J45.909 Unspecified asthma, uncomplicated; Z85.46 Personal history of malignant neoplasm of prostate; Z87.19 Personal history of other diseases of the digestive system; Z96.653 Presence of artificial knee joint, bilateral; Z88.8 Allergy status to other drugs, medicaments and biological substances; Z91.013 Allergy to seafood; Z86.14 Personal history of Methicillin resistant Staphylococcus aureus infection
CPT/HCPCS: 36415; 80048; 85027; 99282-25

== ENCOUNTER 2018-06-02 19:21 | Inpatient (IN) | payer BC, OTHER ==
--- NOTE | 2018-06-02 19:54 | PDOC ---
Rapid Medical Evaluation Time Seen by Provider: 06/02/18 19:52 Medical Evaluation: Allergies Allergy/AdvReac Type Severity Reaction Status Date / Time aspirin Allergy Verified 05/28/18 17:33 NSAIDS (Non-Steroidal Allergy Verified 05/28/18 17:33 Anti-Inflamma crabs Allergy Uncoded 05/28/18 17:33 lobsters Allergy Uncoded 05/28/18 17:33 shrimp Allergy Uncoded 05/28/18 17:33 I have performed a brief in-person evaluation of this patient. The patient presents with a chief complaint of: was seen here on Wednesday for left foot cellulitis. Was discharged home with PO abx. Pain is now controlled. However, swelling today. Patient usually needs IV abx for his cellulitis. Pertinent physical exam findings: swelling to left lower extremity I have ordered the following: labs, IV insert The patient will proceed to the ED for further evaluation. Discharge Disposition - Diagnosis Edema of left lower extremity - Referrals - Patient Instructions - Post Discharge Activity
--- NOTE | 2018-06-02 20:17 | PDOC ---
History of Present Illness - General Chief Complaint: Edema Stated Complaint: ANKLE INJURY Time Seen by Provider: 06/02/18 19:52 History Source: Patient Exam Limitations: No Limitations - History of Present Illness Initial Comments: 06/02/18 20:40 62 year old male with PMH Santer's Triad, cellulitis, nasal polyps, asthma, aortic valve replacement presents to ED for left ankle swelling x1 day. He denies injury. He was seen for left ankle pain x6 days ago, was prescribed Cephalexin and Clindamycin, has not missed any doses. He states for his 2 prior cellulitis of the foot he received IV antibiotics. He denies fever, chills, nausea, vomiting, diarrhea, abdominal pain, chest pain, SOB, palpitations, headache, lightheadedness, dizziness. He states he took 1 percocet and 625 mg Tylenol today at 1400. He states he took a 1 prednisone pill on Wednesday for asthma. PCP - Dr. Smith Allergies - ASA, NSAIDS Past History - Past Medical History Allergies/Adverse Reactions: Allergies Allergy/AdvReac Type Severity Reaction Status Date / Time aspirin Allergy Verified 06/02/18 19:53 NSAIDS (Non-Steroidal Allergy Verified 06/02/18 19:53 Anti-Inflamma crabs Allergy Uncoded 06/02/18 19:53 lobsters Allergy Uncoded 06/02/18 19:53 shrimp Allergy Uncoded 06/02/18 19:53 Home Medications: Ambulatory Orders Albuterol Sulfate Inhaler - [Ventolin HFA Inhaler -] 1 - 2 inh PO Q4H PRN #1 inhaler 03/22/17 Warfarin Sodium 10 mg PO ASDIR 08/26/17 Diltiazem Cd [Cardizem Cd -] 240 mg PO DAILY 08/30/17 Tamsulosin HCl [Flomax] 0.4 mg PO DAILY 08/30/17 Cephalexin [Keflex] 500 mg PO QID 7 Days #28 capsule 05/28/18 Olmesartan Medoxomil [Benicar] 10 mg PO DAILY 05/28/18 Sulfamethoxazole/Trimethoprim [Bactrim Ds -] 1 tab PO BID 7 Days #14 tablet Clindamycin [Cleocin -] 300 mg PO TID #21 capsule 05/29/18 Anemia: No Asthma: Yes Cancer: Yes (prostate) Cardiac Disorders: Yes COPD: No Dementia: No GI Disorders: Yes (peptic ulcer, GERD) HTN: Yes Hypercholesterolemia: Yes Seizures: No Thyroid Disease: No - Surgical History Cardiac Surgery: Yes (AORTIC VALVE) Neurologic Surgery: No Orthopedic Surgery: Yes (RIGHT TOTAL KNEE 05/12) - Immunization History Immunization Up to Date: Yes - Suicide/Smoking/Psychosocial Hx Smoking Status: No Smoking History: Never smoked Have you smoked in the past 12 months: No Number of Cigarettes Smoked Daily: 0 Hx Alcohol Use: No Drug/Substance Use Hx: No Substance Use Type: None Hx Substance Use Treatment: No Review of Systems - Review of Systems Able to Perform ROS?: Yes Comments:: 06/02/18 20:44 General: denies fever, chills, night sweats, generalized weakness. HEENT: denies sore throat, rhinorrhea, ear pain. Heart: denies chest pain, palpitations, syncope, lower extremity swelling, diaphoresis. Respiratory: denies shortness of breath, cough, sputum production, hematemesis. Abdomen: denies abdominal pain, nausea, vomiting, diarrhea, constipation, blood in stool. : denies dysuria, increased urinary frequency, hematuria, urinary incontinence , flank pain. Back: denies back pain, flank pain. Musculoskeletal: positive for ankle swelling. denies joint pain, muscle pain, calf pain. Neurological: denies headache, dizziness, numbness, tingling, weakness. Skin: positive for rash. *Physical Exam - Vital Signs Last Vital Signs Temp Pulse Resp BP Pulse Ox 98.8 F 79 18 144/73 96 06/02/18 19:54 06/02/18 19:54 06/02/18 19:54 06/02/18 19:54 06/02/18 19:54 - Physical Exam Comments: 06/02/18 20:45 Appearance: comfortable. HEENT: head is normocephalic, atraumatic. EOMI. PERRLA. Neck: supple. Full ROM. Heart: regular rhythm. no murmurs, rubs or gallops. No pericardial friction rub. Lungs: clear to auscultation bilaterally. no crackles, rhonchi or wheezing. no stridor. Abdomen: soft, nontender. normal bowel sounds. no rebound, guarding, masses. Extremities: Left ankle non-pitting edema and erythema. Full ROM all extremities. Peripheral pulses intact and equal. No lower extremity edema. Neurological: Alert. Oriented x3. CN 2-12 grossly intact. Moves all four extremities. ED Treatment Course - LABORATORY CBC & Chemistry Diagram: 06/02/18 21:00 06/02/18 21:00 Medical Decision Making - Medical Decision Making 06/02/18 20:45 62 year old male with PMH multiple cellulitis requiring IV antibiotics presenting for left ankle swelling x1 day. Pt was seen for left ankle pain x6 days ago, was precribed Cephalexin and Clindamycin. Initial Vital Signs Temp Pulse Resp BP Pulse Ox 98.8 F 79 18 144/73 96 06/02/18 19:54 06/02/18 19:54 06/02/18 19:54 06/02/18 19:54 06/02/18 19:54 Afebrile. No tachycardia. No hypoxia. Zosyn and Vancomycin ordered. Pending Left Ankle XR. 06/02/18 22:20 Pt failed oral antibiotics. Will be admitted for IV antibiotic therapy. 06/02/18 23:[address] Leung about the patient, who will be admitted under Dr. Rush 's care. *DC/Admit/Observation/Transfer Diagnosis at time of Disposition: Edema of left lower extremity, Cellulitis - Discharge Dispostion Condition at time of disposition: Stable Decision to Admit order: Yes - Referrals Referrals: Claudio Dias MD [Primary Care Provider] - - Patient Instructions - Post Discharge Activity
--- NOTE | 2018-06-02 20:50 | PDOC ---
Attending Attestation - Resident Resident Name: Fanny Cui - ED Attending Attestation I have performed the following: I have examined & evaluated the patient, The case was reviewed & discussed with the resident, I agree w/resident's findings & plan, Exceptions are as noted - HPI HPI: 06/03/18 00:53 Mr. Justen Greenberg is a 62 year old male with past medical history of CAD s/ p AVR (Warfarin), Osteoarthritis (s/p B/L TKR (12/2013; 2011)), HTN, HLD, Aortic valve replacement, Asthma, Sleep Apnea, Prostate CA, GERD, Samters Triad, Joint Replacement (R TKR 2011; L TKR 2013), heart valve replacement (on coumadin ) and dx of Cellulitis to the R. foot on 05/12/2018 (discharged home with Keflex /Clindamycin) presents to the emergency department with L. ankle swelling. The patient states initially the swelling started as a small wound to the L. lateral ankle which progressed to ankle swelling with pain. The patient was seen at the ED on 05/28/2018 for L. ankle swelling which was aggravated by itching the ankle days prior, was prescribed Cephalexin and Sulfamethoxazole/ Trimethoprim, then discharged home. The patient reports being complaint with his medications, reports taking a percocet and Tylenol around 2:[address] Dias Allergies: aspirin, NSAIDS, crabs, lobsters and shrimp. Social history: None reported - Physicial Exam PE: 06/03/18 00:52 No acute distress, well appearing, moist mucus membranes, nl conjunctiva; neck supple, FROM. lungs clear, RRR, abdomen soft NTND, warm and well perfused. LATIF x4, no focal neuro deficits. (+) Small dry wound to the medical aspect of the L. foot, ankle swelling with tenderness throughout, soft erythema with warmth. ( +) discoloration B/L to the dorsal of the foot. No prox tenderness in extremities or erythematous streaking. - Medical Decision Making 06/02/18 20:49 A portion of this note was documented by scribe services under my direction. I have reviewed the details of the note, within reason, and agree with the documentation with the following case summary and management plan written by me. 62 year old male with PMH Santer's Triad, cellulitis, nasal polyps, asthma, aortic valve replacement presents to ED for left ankle swelling x1 day. He denies injury. He was seen for left ankle pain x6 days ago, was prescribed Cephalexin and Clindamycin. DDx. cellulitis, effusion, osteomyelitis. doubt bacteremia or sepsis, no blood cx for now, no fevers and low utility of blood cx. vital signs reviewed, wnl. basic labs wnl, XR neg for osteomyelitis. small foot wound noted and chronic discoloration, now with persistent edema and mild tenderness/improving erythema , failed outpatient clinda/keflex. will admit for IV abx, vanc/zosyn, prior history of similar presentation. pt made aware of impression and plan, agreeable. pain controlled, none needed. 06/03/18 00:53 06/03/18 00:55
[2018-06-02 21:19] LABS: EOS % 11.4 % (0-4.5); HEMATOCRIT 40.7 % (35.4-49); HEMOGLOBIN 13.3 GM/dL (11.7-16.9); LYMPH % 40.1 % (8-40); MCH 29.9 pg (25.7-33.7); MCHC 32.7 g/dl (32.0-35.9); MEAN CELL VOLUME 91.6 fl (80-96); MEAN PLT VOLUME 8.8 fl (7.5-11.1); MONO % 8.5 % (3.8-10.2); PLATELET COUNT 194 K/MM3 (134-434); RBC 4.44 M/mm3 (4.00-5.60); RDW 14.3 % (11.9-15.9)
[2018-06-02 21:45] LABS: ALBUMIN 3.8 g/dl (3.4-5.0); ALK PHOS 69 U/L (45-117); ANION GAP 6 (8-16); BILIRUBIN,TOTAL 0.5 mg/dL (0.2-1.0); BLOOD UREA NITROGEN 15 mg/dL (7-18); CALCIUM 9.4 mg/dL (8.5-10.1); CHLORIDE 110 mmol/L (98-107); CO2 28 mmol/L (21-32); CREATININE 1.2 mg/dL (0.7-1.3); GLUCOSE,RANDOM 84 mg/dL (74-106); POTASSIUM 4.2 mmol/L (3.5-5.1); SGOT/AST 26 U/L (15-37); SGPT/ALT 37 U/L (12-78); SODIUM 144 mmol/L (136-145); TOT PROT 7.3 g/dl (6.4-8.2)
[2018-06-02] MEDS ORDERED: PIPERACILLIN/TAZOB 4.5 GM 4.5 GM/100 ML BAG IVPB ONE ×2 (21:46→23:02)
[2018-06-02] MEDS ORDERED: VANCOMYCIN 1,500 MG in DEXTROSE 5%-WATER - 500 ML IVPB ONE (22:10)
[2018-06-02] MEDS ORDERED: PIPERACILLIN/TAZOB 4.5 GM 4.5 GM in DEXTROSE 5%-WATER 100 ML IVPB ONE (22:34)
[2018-06-02] MEDS ORDERED: HEPARIN NA (PORCINE) 5,000 UNITS/ML 1ML VIAL SQ SCH (23:30)
--- NOTE | 2018-06-02 23:56 | PN ---
Teaching Attending Note Name of Resident: Mohit Leung ATTENDING PHYSICIAN STATEMENT I saw and evaluated the patient. I reviewed the resident's note and discussed the case with the resident. I agree with the resident's findings and plan as documented. SUBJECTIVE: Patient is a 62 year old man with PMH of Santer's Triad, cellulitis, nasal polyps, asthma, sleep apnea, aortic valve replacement presents to ED for left ankle swelling x1 day. He denies injury. He was seen for left ankle pain x6 days ago, was prescribed Cephalexin and Clindamycin, has not missed any doses. He states for his 2 prior cellulitis of the foot he received IV antibiotics. He denies fever, chills, nausea, vomiting, diarrhea, abdominal pain, chest pain, SOB, palpitations, headache, lightheadedness, dizziness. He states he took 1 percocet and 625 mg Tylenol today at 1400. He states he took a 1 prednisone pill on Wednesday for asthma. OBJECTIVE: Alert and in no acute distress Vital Signs Period Temp Pulse Resp BP Sys/Fung Pulse Ox Last 24 Hr 98.8 F 79-79 18-18 144/73 96-96 HEENT: No Jaundice, eye redness or discharge, PERRLA, EOMI. Normocephalic, atraumatic. External ears are normal and hearing is grossly intact. No nasal discharge. Neck: Supple, nontender. No palpable adenopathy or thyromegaly. No JVD Chest: Good effort. Bilateral wheezing. Clear to percussion. Heart: Regular. No S3, rub or murmur Abdomen: Not distended, soft, nontender and no HSM. No rebound or guarding. Normoactive bowel sounds. Ext: Peripheral pulses intact. Chronic stasis dermatitis changes in lower legs with hyperpigmentation, thick skin and excoriations from pruritus. Cellulitis left ankle. Ankle edema. Skin: Warm and dry. No petechiae, rash or ecchymosis. Neuro: Alert. Oriented x3. CN 2-12 grossly intact. Sensation grossly intact in all four extremities and DTR are symmetric. Current Medications Generic Name Dose Route Start Last Admin Trade Name Freq PRN Reason Stop Dose Admin Heparin Sodium (Porcine) 5,000 unit 06/02/18 23:30 Heparin - SQ TID ALEXANDRA Vancomycin HCl 1,500 mg/ 500 mls @ 250 mls/hr 06/02/18 22:10 Dextrose IVPB 06/03/18 00:09 ONCE ONE Protocol Home Medications Medication Instructions Recorded Albuterol Sulfate Inhaler - 1 - 2 inh PO Q4H PRN #1 inhaler 03/22/17 [Ventolin HFA Inhaler -] Warfarin Sodium 10 mg PO ASDIR 08/26/17 Diltiazem Cd [Cardizem Cd -] 240 mg PO DAILY 08/30/17 Tamsulosin HCl [Flomax] 0.4 mg PO DAILY 08/30/17 Cephalexin [Keflex] 500 mg PO QID 7 Days #28 capsule 05/28/18 Olmesartan Medoxomil [Benicar] 10 mg PO DAILY 05/28/18 Sulfamethoxazole/Trimethoprim 1 tab PO BID 7 Days #14 tablet 05/28/18 [Bactrim Ds -] Clindamycin [Cleocin -] 300 mg PO TID #21 capsule 05/29/18 Abnormal Lab Results 06/02/18 06/02/18 21:00 21:00 Neutrophils % 39.0 L D Lymphocytes % 40.1 H D Eosinophils % 11.4 H Chloride 110 H Anion Gap 6 L ASSESSMENT AND PLAN: 1. Left leg cellulitis - Failed outpatient oral antibiotics therapy. Will treat with IV vancomycin 1 gm q 12 hours and check trough level before the 4th dose. Consult ID. EKG, CXR and INR pending. On coumadin for prosthetic aortic valve. 2. Acute Bronchospasm/Sleep Apnea - Treat with duoneb, spiriva, symbicort and solumedrol as well as CPAP. 3. Obesity - Will provide patient all the necessary assistance , counseling and positive reinforcement to facilitate weight loss. Consult education spec. 4. DVT prophylaxis - On coumadin 5. Advance directives - Full code
[2018-06-02] MEDS ORDERED: ALBUTEROL SO4 8 GM HFA INHALER IH PRN (23:57)
--- NOTE | 2018-06-03 00:51 | HP ---
CHIEF COMPLAINT: left ankle abrasion/rash PCP: Sarah HISTORY OF PRESENT ILLNESS: 62 yo male with PMH of Samter's triad (Asthma, nasal polyps, ASA sensitivity), CAD s/p aortic valve placement (on warfarin), HTN, HLD, Sleep apnea, and multiple bouts of cellulitis presents to the ED with complaint of left medial ankle swelling with some pain. He was seen 05/12 and diagnosed with cellulitis in that same area and given clinda for 10 days, on 05/28 he returned to the ED with the same complaint and was given Bactrim/Keflex. Today he returns because he notes swelling in that ankle for 1 day. He endorses dry and cracked feet which are often itchy leading him to scratch the areas. He uses A+D ointment at home with minimal relief. He says the pain is tolerable but that the swelling concerned him that the abx werent working. He denies fevers, chills, n/v. ER course was notable for: (1) Ankle Radiograph - no fracture or subq air noted (2) Afebrile, WBC 4 (3) Vanc/Zosyn Recent Travel: none PAST MEDICAL HISTORY: Samters Triad CAD HTN HLD Sleep apnea Recurrent cellulitis PAST SURGICAL HISTORY: Mechanical aortic valve replacement 1.5 years ago B/L total knees Social History: Smoking:none Alcohol:none Drugs:none Family History: Allergies aspirin Allergy (Verified 06/02/18 19:53) NSAIDS (Non-Steroidal Anti-Inflamma Allergy (Verified 06/02/18 19:53) crabs Allergy (Uncoded 06/02/18 19:53) lobsters Allergy (Uncoded 06/02/18 19:53) shrimp Allergy (Uncoded 06/02/18 19:53) HOME MEDICATIONS: Home Medications Medication Instructions Recorded Albuterol Sulfate Inhaler - 1 - 2 inh PO Q4H PRN #1 inhaler 03/22/17 [Ventolin HFA Inhaler -] Warfarin Sodium 10 mg PO ASDIR 08/26/17 Diltiazem Cd [Cardizem Cd -] 240 mg PO DAILY 08/30/17 Tamsulosin HCl [Flomax] 0.4 mg PO DAILY 08/30/17 Cephalexin [Keflex] 500 mg PO QID 7 Days #28 capsule 05/28/18 Olmesartan Medoxomil [Benicar] 10 mg PO DAILY 05/28/18 Sulfamethoxazole/Trimethoprim 1 tab PO BID 7 Days #14 tablet 05/28/18 [Bactrim Ds -] Clindamycin [Cleocin -] 300 mg PO TID #21 capsule 05/29/18 REVIEW OF SYSTEMS CONSTITUTIONAL: Absent: fever, chills, diaphoresis, generalized weakness, malaise, loss of appetite, weight change HEENT: nasal congestion, Absent: rhinorrhea, throat pain, throat swelling, difficulty swallowing, mouth swelling, ear pain, eye pain, visual changes CARDIOVASCULAR: Absent: chest pain, syncope, palpitations, irregular heart rate, lightheadedness , peripheral edema RESPIRATORY: wheezing, Absent: cough, shortness of breath, dyspnea with exertion, orthopnea, stridor, hemoptysis GASTROINTESTINAL: Absent: abdominal pain, abdominal distension, nausea, vomiting, diarrhea, constipation, melena, hematochezia GENITOURINARY: Absent: dysuria, frequency, urgency, hesitancy, hematuria, flank pain, genital pain MUSCULOSKELETAL: Absent: myalgia, arthralgia, joint swelling, back pain, neck pain SKIN: rash, itching, Absent: pallor HEMATOLOGIC/IMMUNOLOGIC: Absent: easy bleeding, easy bruising, lymphadenopathy, frequent infections ENDOCRINE: Absent: unexplained weight gain, unexplained weight loss, heat intolerance, cold intolerance NEUROLOGIC: Absent: headache, focal weakness or paresthesias, dizziness, unsteady gait, seizure, mental status changes, bladder or bowel incontinence PSYCHIATRIC: Absent: anxiety, depression, suicidal or homicidal ideation, hallucinations. PHYSICAL EXAMINATION Vital Signs - 24 hr 06/02/18 06/02/18 06/03/18 19:54 22:42 00:08 Temperature 98.8 F 98.1 F Pulse Rate 79 79 66 Respiratory 18 18 20 Rate Blood Pressure 144/73 130/70 O2 Sat by Pulse 96 96 Oximetry (%) GENERAL: Awake, alert, and fully oriented, in no acute distress. HEAD: Normal with no signs of trauma. EYES: PERRL, EOMI, no scleral icterus EARS, NOSE, THROAT: nares patent, oropharynx clear without exudates. Moist mucous membranes. NECK: supple without lymphadenopathy, JVD, or masses. LUNGS: Diffuse expiratory wheezing b/l, no crackles HEART: RRR, mechanical high pitch click noted ABDOMEN: soft, nontender, normoactive bowel sounds UPPER EXTREMITIES: Small healing abrasions on right forearm, warm, well- perfused. LOWER EXTREMITIES: Thickened darken skin noted on b/l feet, dry flaky skin, small abrasion on left ankle, swelling of left ankle compared with the right, though 1+ edema b/l, left ankle is warmer than the right. NEUROLOGICAL: Cranial nerves II-XII grossly intact. Normal speech. PSYCHIATRIC: Cooperative. Good eye contact. Appropriate mood and affect. SKIN: Warm, dry, normal turgor, rash as above Laboratory Results - last 24 hr 06/02/18 06/02/18 21:00 21:00 WBC 4.0 RBC 4.44 Hgb 13.3 Hct 40.7 MCV 91.6 MCH 29.9 MCHC 32.7 RDW 14.3 Plt Count 194 D MPV 8.8 Absolute Neuts (auto) 1.6 Neutrophils % 39.0 L D Lymphocytes % 40.1 H D Monocytes % 8.5 Eosinophils % 11.4 H Basophils % 1.0 Nucleated RBC % 0 Sodium 144 Potassium 4.2 Chloride 110 H Carbon Dioxide 28 Anion Gap 6 L BUN 15 Creatinine 1.2 Creat Clearance w eGFR > 60 Random Glucose 84 Calcium 9.4 Total Bilirubin 0.5 AST 26 ALT 37 Alkaline Phosphatase 69 Total Protein 7.3 Albumin 3.8 ASSESSMENT/PLAN: 62 yo male with PMH Samter's triad, CAD s/p aortic valve replacement, HTN, HLD, Sleep apnea, admitted to med/surg for IV Abx after failing 2 rounds of outpatient oral treatment. Cellulitis of left ankle -Failed outpatient therapy with PO Abx X2 -Vanc/Zosyn given in ED -D/c zosyn -ID has seen him for the same problem in the past, consult placed CAD s/p Mechanical Valve -states INR a few weeks ago was in range -Awaiting INR ordered -Adjust warfarin dose per INR -EKG ordered -Most likely no acute cardiac events at this time -Pt follows with Dr. Hart outpatient regularly HTN -restart home meds -Cardizem 240 mg PO Daily -Omesartan 10 mg PO Daily Sleep Apnea -CPAP ordered -IPAP set to 9 cm H20 Asthma (Samter's) -Eosinophilia 11.4, higher than previous visits -Symbicort Q12 -Duonebs Q4 standing for first 24 hrs then PRN -Albuterol Q4 PRN -CXR ordered -Solu-Medrol 60 mg IV Q8 DVT Prophylaxis -Heparin 5000 units SQ TID -OOB as tolerated FEN -Fluids: none -Electrolytes: no abnormalities, BMP, mg, phos in AM -Nutrition: Regular diet Disposition Admit to med/surg Visit type - Emergency Visit Emergency Visit: Yes Care time: The patient presented to the Emergency Department on the above date and was hospitalized for further evaluation of their emergent condition. - New Patient This patient is new to me today: Yes Date on this admission: 06/03/18 - Critical Care Critical Care patient: No Hospitalist Screening - Colonoscopy Questionnaire Colonoscopy Questionnaire: Colonoscopy Questionnaire - Patient: 50 - 75 years old and never had a screening colonoscopy: No History of colon or rectal polyps, or CA: No History of IBD, Crohn's disease or UC: No History of abdominal radiation therapy as a child: No - Relative: 1 with colon or rectal CA, or polyps at age 60 or younger: No Colon or rectal CA diagnosed at age 45 or younger: No Multiple relatives with colon or rectal CA: No - Outcome: Screening Result: Negative Screen
[2018-06-03] MEDS ORDERED: ACETAMINOPHEN 325 MG TABLET (FP) PO PRN (00:56)
[2018-06-03] MEDS: ALBUTEROL SO4 2.5/IPRATROPIUM 0.5 INH SOL 3 ML VIAL.NEB. NEB SCH ×4 (01:09→12:02)
[2018-06-03] MEDS: methylPREDNISolone NA SUCC 125 MG/2 ML VIAL IVPUSH SCH ×2 (01:27→11:04)
[2018-06-03 02:35] LABS: INR 3.12 (0.83-1.09); PROTHROMBIN TIME (PATIENT) 35.3 SEC (9.7-13.0)
[2018-06-03 05:57] VITALS: BMI 35.8
[2018-06-03 07:22] LABS: HEMATOCRIT 38.1 % (35.4-49); HEMOGLOBIN 12.8 GM/dL (11.7-16.9); MCH 30.7 pg (25.7-33.7); MCHC 33.6 g/dl (32.0-35.9); MEAN CELL VOLUME 91.5 fl (80-96); MEAN PLT VOLUME 9.6 fl (7.5-11.1); PLATELET COUNT 170 K/MM3 (134-434); RBC 4.17 M/mm3 (4.00-5.60); RDW 13.8 % (11.9-15.9); WHITE BLOOD COUNT 4.3 K/mm3 (4.0-10.0)
[2018-06-03 07:50] LABS: ANION GAP 7 (8-16); BLOOD UREA NITROGEN 16 mg/dL (7-18); CALCIUM 9.7 mg/dL (8.5-10.1); CHLORIDE 107 mmol/L (98-107); CO2 27 mmol/L (21-32); CREATININE 1.3 mg/dL (0.7-1.3); GLUCOSE,RANDOM 134 mg/dL (74-106); MAGNESIUM 2.1 mg/dL (1.8-2.4); PHOSPHOROUS 2.6 mg/dL (2.5-4.9); POTASSIUM 4.2 mmol/L (3.5-5.1); SODIUM 141 mmol/L (136-145)
[2018-06-03] MEDS ORDERED: PT OWN MED DRAWER 7, Y5N ONE ×2 (09:16→21:40)
[2018-06-03] MEDS: BUDESONIDE/FORMETEROL FUMARATE 80/4.5 mcg INHALER IH SCH ×3 (11:02→21:52)
[2018-06-03] MEDS: TAMSULOSIN HCL 0.4 MG CAP.ER.24H (FP) PO SCH (11:03)
[2018-06-03] MEDS: VALSARTAN 80 MG TABLET (UD) PO SCH (11:05)
--- NOTE | 2018-06-03 13:37 | CON.PULM ---
Consult Consult Specialty:: PULM/CCM Referred by:: VENU Reason for Consultation:: SOB - History of Present Illness Chief Complaint: LE redness / swelling History of Present Illness: 62 M, CAD s/p AVR on AC, Osteoarthritis, B/L TKR (12/2013; 2011)), HTN, HLD, Aortic valve replacement, Asthma, Sleep Apnea on CPAP @ 8 cm H2O Prostate CA, GERD, Samters Triad, Joint Replacement (R TKR 2011; L TKR 2013), and Cellulitis to the Right foot. Apparently failed outpatient ABX for his cellulitis. Has reported "on/off" wheezing for the past several days. No fever or chills. No Hemoptysis. No travel history or sick contacts. CXR: No acute findings. - History Source History Provided By: Patient Limitations to Obtaining History: No Limitations - Past Medical History Cardio/Vascular: Yes: HTN, Hyperlipdemia, Other (aortic valve replacement) Pulmonary: Yes: Asthma, Sleep Apnea (Uses CPAP 8 cm H20 nightly. Never intubated , Uses albuterol singulairand advair. Never smoked) Gastrointestinal: Yes: Other (history pancreatitis (once) ? 2nd to alcoholic pancreatitis) Renal/: Yes: Other (Low testosterone-has been on replacement). No: Renal Failure Musculoskeletal: Yes: Osteoarthritis (s/p B/L TKR (12/2013; 2011)) ENT: Yes: Other (nasal polyps s/p 3 polyp removal) Endocrine: Yes: Other (Low testosterone: taking replacement) - Past Surgical History Past Surgical History: Yes: Joint Replacement (R TKR 2011; L TKR 2013) - Alcohol/Substance Use Hx Alcohol Use: Yes (casual) History of Substance Use: reports: None - Smoking History Smoking history: Never smoked Have you smoked in the past 12 months: No Aproximately how many cigarettes per day: 0 - Social History ADL: Independent History of Recent Travel: No Home Medications - Allergies Allergies/Adverse Reactions: Allergies Allergy/AdvReac Type Severity Reaction Status Date / Time aspirin Allergy Verified 06/02/18 19:53 NSAIDS (Non-Steroidal Allergy Verified 06/02/18 19:53 Anti-Inflamma crabs Allergy Uncoded 06/02/18 19:53 lobsters Allergy Uncoded 06/02/18 19:53 shrimp Allergy Uncoded 06/02/18 19:53 - Home Medications Home Medications: Ambulatory Orders Albuterol Sulfate Inhaler - [Ventolin HFA Inhaler -] 1 - 2 inh PO Q4H PRN #1 inhaler 03/22/17 Warfarin Sodium 10 mg PO ASDIR 08/26/17 Diltiazem Cd [Cardizem Cd -] 240 mg PO DAILY 08/30/17 Tamsulosin HCl [Flomax] 0.4 mg PO DAILY 08/30/17 Cephalexin [Keflex] 500 mg PO QID 7 Days #28 capsule 05/28/18 Olmesartan Medoxomil [Benicar] 10 mg PO DAILY 05/28/18 Sulfamethoxazole/Trimethoprim [Bactrim Ds -] 1 tab PO BID 7 Days #14 tablet Clindamycin [Cleocin -] 300 mg PO TID #21 capsule 05/29/18 Review of Systems - Review of Systems Constitutional: denies: Chills, Fever, Malaise Eyes: reports: No Symptoms HENT: reports: No Symptoms Neck: reports: No Symptoms Cardiovascular: denies: Chest Pain, Edema, Palpitations, Shortness of Breath Respiratory: reports: Cough, Snoring, Wheezing. denies: Hemoptysis, SOB, SOB on Exertion Gastrointestinal: reports: No Symptoms Genitourinary: reports: No Symptoms Breasts: reports: No Symptoms Reported Musculoskeletal: reports: No Symptoms Integumentary: reports: Blister Neurological: reports: No Symptoms Endocrine: reports: No Symptoms Hematology/Lymphatic: reports: No Symptoms Psychiatric: reports: No Symptoms Physical Exam Vital Sings: Vital Signs Temperature 97.8 F 06/03/18 10:00 Pulse Rate 72 06/03/18 10:00 Respiratory Rate 16 06/03/18 10:00 Blood Pressure 146/89 06/03/18 10:00 O2 Sat by Pulse Oximetry (%) 96 06/03/18 09:33 Constitutional: Yes: No Distress, Calm Eyes: Yes: Conjunctiva Clear, EOM Intact HENT: Yes: Atraumatic, Normocephalic, Tonsillar Exudate Neck: Yes: Supple Cardiovascular: Yes: Regular Rate and Rhythm Respiratory: Yes: Cough, Diminished, Wheezes. No: Accessory Muscle Use, Rhonchi , Stridor, Tachypnea ...Inspection: Yes: WNL ...Clubbing: No Gastrointestinal: Yes: Normal Bowel Sounds, Soft Renal/: Yes: WNL Breast(s): Yes: WNL Musculoskeletal: Yes: WNL Extremities: Yes: WNL Edema: Yes Peripheral Pulses WNL: Yes Integumentary: Yes: Erythema Neurological: Yes: Alert, Oriented ...Motor Strength: WNL Psychiatric: Yes: WNL, Alert, Oriented Labs: CBC, BMP 06/03/18 06:00 06/03/18 06:00 Imaging - Results Chest X-ray: Report Reviewed, Image Reviewed Problem List - Problems (1) Cellulitis Code(s): L03.90 - CELLULITIS, UNSPECIFIED (2) Edema of left lower extremity Code(s): R60.0 - LOCALIZED EDEMA (3) Aortic regurgitation Code(s): I35.1 - NONRHEUMATIC AORTIC (VALVE) INSUFFICIENCY Qualifiers: Cardiac valve disease etiology: nonrheumatic Qualified Code(s): I35.1 - Nonrheumatic aortic (valve) insufficiency (4) Aortic stenosis Code(s): I35.0 - NONRHEUMATIC AORTIC (VALVE) STENOSIS Qualifiers: Cardiac valve disease etiology: nonrheumatic Qualified Code(s): I35.0 - Nonrheumatic aortic (valve) stenosis (5) Aortic valve replaced Code(s): Z95.2 - PRESENCE OF PROSTHETIC HEART VALVE (6) Asthma Code(s): J45.909 - UNSPECIFIED ASTHMA, UNCOMPLICATED Qualifiers: Asthma severity: severe persistent Asthma complication type: with acute exacerbation Qualified Code(s): J45.51 - Severe persistent asthma with (acute ) exacerbation (7) Blister Code(s): T14.8 - OTHER INJURY OF UNSPECIFIED BODY REGION * DO NOT USE * (8) Bronchitis Code(s): J40 - BRONCHITIS, NOT SPECIFIED ACUTE OR CHRONIC (9) Dyslipidemia Code(s): E78.5 - HYPERLIPIDEMIA, UNSPECIFIED (10) HTN (hypertension) Code(s): I10 - ESSENTIAL (PRIMARY) HYPERTENSION Qualifiers: Hypertension type: essential hypertension Qualified Code(s): I10 - Essential (primary) hypertension (11) Obstructive sleep apnea Code(s): G47.33 - OBSTRUCTIVE SLEEP APNEA (ADULT) (PEDIATRIC) Assessment/Plan Agree with BD TX and Medrol. Can add Singulair Should have IgE checked after D/C No smoking Patient says he is comfortable on CPAP @ 9 cm H2O here (8 cm at home) AC LOcal wound care ABX for cellulitis Will follow Thank you. Dr Ernst
--- NOTE | 2018-06-03 15:16 | PN ---
Progress Note (short form) - Note Progress Note: ID Consult dictated Cellulitis L LE S/P AVR Obtain BC Continue empiric vancomycin
--- NOTE | 2018-06-03 17:29 | PN ---
Teaching Attending Note Name of Resident: Lyla Teran ATTENDING PHYSICIAN STATEMENT I saw and evaluated the patient. I reviewed the resident's note and discussed the case with the resident. I agree with the resident's findings and plan as documented with exceptions below SUBJECTIVE: patient seen and examined. Left leg symptoms improved, better swelling and redness and pain today. no fevers/chills. Breathing stable, denies any new wheezing or worsening recently. OBJECTIVE: Vital Signs Period Temp Pulse Resp BP Sys/Fung Pulse Ox Last 24 Hr 97.8 F-98.8 F 66-79 16-20 130-157/70-89 94-96 Intake & Output 05/31/18 06/01/18 06/02/18 06/03/18 23:59 23:59 23:59 23:59 Intake Total 1100 Balance 1100 Weight 260 lb 256 lb 11.2 oz General: sitting in bed in no acute distress, no use of acessory muscles of respiration Extremities: small area of swellng/redness/tenderness over left medial malleolus , skin hyperpigmentation with exocriation on dorsum and lateral aspects of bilateral feet with some abrasions, positive palpable DP pulses bilaterally Chest: positive air entry bilaterally, no wheezing appreciated Active Medications Acetaminophen (Tylenol -) 650 mg PO Q4H PRN PRN Reason: PAIN LEVEL 1-5 Albuterol Sulfate (Ventolin Hfa Inhaler -) 2 puff IH Q4H PRN PRN Reason: SHORT OF BREATH/WHEEZING Budesonide/Formoterol Fumarate (Symbicort 80/4.5mcg -) 2 puff IH BID [facility] Last Admin: 06/03/18 11:02 Dose: 2 puff Diltiazem HCl (Cardizem Cd -) 240 mg PO DAILY [facility] Last Admin: 06/03/18 11:04 Dose: 240 mg Vancomycin HCl 1,500 mg/ (Dextrose) 500 mls @ 250 mls/hr IVPB Q24H [facility]; Protocol Montelukast Sodium (Singulair -) 10 mg PO HS [facility] Prednisone (Deltasone -) 40 mg PO DAILY [facility] Tamsulosin HCl (Flomax -) 0.4 mg PO DAILY@0830 [facility] Last Admin: 06/03/18 11:03 Dose: 0.4 mg Valsartan (Diovan -) 80 mg PO DAILY [facility] Last Admin: 06/03/18 11:05 Dose: 80 mg Warfarin Sodium (Coumadin -) 10 mg PO DAILY@1800 [facility] Laboratory Results - last 24 hr 06/02/18 06/02/18 06/03/18 21:00 21:00 01:47 WBC 4.0 RBC 4.44 Hgb 13.3 Hct 40.7 MCV 91.6 MCH 29.9 MCHC 32.7 RDW 14.3 Plt Count 194 D MPV 8.8 Absolute Neuts (auto) 1.6 Neutrophils % 39.0 L D Lymphocytes % 40.1 H D Monocytes % 8.5 Eosinophils % 11.4 H Basophils % 1.0 Nucleated RBC % 0 PT with INR 35.30 H INR 3.12 H* Sodium 144 Potassium 4.2 Chloride 110 H Carbon Dioxide 28 Anion Gap 6 L BUN 15 Creatinine 1.2 Creat Clearance w eGFR > 60 Random Glucose 84 Calcium 9.4 Phosphorus Magnesium Total Bilirubin 0.5 AST 26 ALT 37 Alkaline Phosphatase 69 Total Protein 7.3 Albumin 3.8 Random Vancomycin 06/03/18 06/03/18 06/03/18 06:00 06:00 12:00 WBC 4.3 RBC 4.17 Hgb 12.8 Hct 38.1 MCV 91.5 MCH 30.7 MCHC 33.6 RDW 13.8 Plt Count 170 MPV 9.6 Absolute Neuts (auto) Neutrophils % Lymphocytes % Monocytes % Eosinophils % Basophils % Nucleated RBC % PT with INR INR Sodium 141 Potassium 4.2 Chloride 107 Carbon Dioxide 27 Anion Gap 7 L BUN 16 Creatinine 1.3 Creat Clearance w eGFR 56.12 Random Glucose 134 H D Calcium 9.7 Phosphorus 2.6 Magnesium 2.1 Total Bilirubin AST ALT Alkaline Phosphatase Total Protein Albumin Random Vancomycin 8.64 ASSESSMENT AND PLAN: 62 yom with PMHx of Samter's triad (Asthma, nasal polyps, ASA sensitivity), CAD s/p aortic valve placement (on warfarin), HTN, HLD, Sleep apnea, and multiple bouts of cellulitis, here with LLE cellulitis. -LLE cellulitis -Bilateral feet ?dermatitis -Asthma -?CAD -s/p mechanical aortic valve -Obesity -LELE Plan Id input noted, vancomycin. Podiatry input. Will need dermatology eval given recurrent episodes of cellulitis and evidence of dermatitis bilateral LE. Pulmonary input noted. Currently does not look in asthma exac. Prednisone 40 mg, nebs. nightly CPAP. DVTPPX dispo in 1-2 days pending clinical improvement. Plan discussed with patient in detail, all questions answered.
[2018-06-03] MEDS: VANCOMYCIN 1,500 MG in DEXTROSE 5%-WATER - 500 ML IVPB SCH (17:33)
--- NOTE | 2018-06-03 17:35 | CONS ---
DATE OF CONSULTATION: DATE OF DICTATION: 06/03/2018 INFECTIOUS DISEASE CONSULTATION HISTORY OF PRESENT ILLNESS: The patient is a 62-year-old male, history of aortic valve replacement approximately a year and a half ago, history of cellulitis of the right foot in the past, history of MRSA of a soft tissue wound 2014, now evaluated for cellulitis of the left lower extremity. Patient had presented with complaints of left ankle pain, swelling, and erythema. He was seen in the emergency room on Wednesday, May 28, 2018. Patient states that he was evaluated and discharged on oral Keflex and Bactrim. Despite the oral antibiotic therapy, he developed worsening pain and swelling of the left ankle. He returned to the hospital and was admitted. He was noted to have a white blood cell count of 17,000. No blood cultures were obtained. He was empirically treated with vancomycin and Zosyn. At the present time he reports significant improvement in his left ankle pain and swelling. He denies any traumatic injury, insect or animal bites or scratches. However, he does report scratching the area because it was itchy. He denies any associated fevers or chills. Of note, he has had history of MRSA in the past. PAST MEDICAL HISTORY: Positive for coronary artery disease, obstructive sleep apnea, prostate cancer, hypertension, hyperlipidemia, gastroesophageal reflux, Samter's Triad, history of cellulitis of the right foot 2014. PAST SURGICAL HISTORY: Status post bilateral total knee replacement and aortic valve replacement approximately a year and a half ago. ALLERGIES: ASPIRIN and NONSTEROIDALS. MEDICATION: Symbicort, Solu-Medrol, Flomax, Diovan, Coumadin, Ventolin, Cardizem. SOCIAL HISTORY: Lives at home. Nonsmoker. Occasional ETOH. LABORATORY DATA: White count was 4.3, hematocrit 38.1, platelet count 170, BUN 16, creatinine 1.3. Toxicology, random vancomycin level 8.6. PHYSICAL EXAMINATION: General: On exam, he is awake and alert. Vital signs: Temperature 97.8, blood pressure 146/89, pulse 72 regular, respirations 20 per minute. HEENT: Sclerae anicteric. Cardiovascular: Heart sounds S1, S2. A 2/6 pansystolic murmur. Lungs: Clear. Abdomen: Obese, nontender. Extremities: Hyperkeratosis noted of feet bilaterally. There is swelling of the left ankle and faint erythema with warmth present on the medial aspect of the ankle. There is no open wound, no purulent drainage, no lymphangitic streaking. IMPRESSION: 1. Cellulitis of the left lower extremity. 2. Status post aortic valve replacement. Continue vancomycin. Elevation, analgesics. Will follow. Thank you for the kind referral. JEF RUSSELL M.D. [id number]
[2018-06-03] MEDS ORDERED: methylPREDNISolone NA SUCC 40 MG/1 ML VIAL IVPUSH SCH (18:00)
[2018-06-03] MEDS: WARFARIN NA 10 MG TABLET (FP) PO SCH (18:30)
[2018-06-03] MEDS: MONTELUKAST NA 10 MG TABLET PO SCH (21:51)
--- NOTE | 2018-06-04 00:12 | PN ---
Physical Exam: SUBJECTIVE: Patient seen and examined this morning at bedside. No new complaints. COntinues to have itchiness and pain however they are improving. Denies fevers, chills, chest pain, SOB, nausea, vomiting, numbness, tingling, weakness. OBJECTIVE: Vital Signs Period Temp Pulse Resp BP Sys/Fung Pulse Ox Last 24 Hr 97.8 F-98.4 F 54-72 16-20 143-160/66-89 94-96 GENERAL: The patient is awake, alert, and fully oriented, in no acute distress. LUNGS: Breath sounds equal, Diffuse wheezing present throughout HEART: Regular rate and rhythm, S1, S2, Mechanical valve click present ABDOMEN: Soft, nontender, nondistended, normoactive bowel sounds LOWER EXTREMITIES: Darkened, dry, flaky skin present on both feet with warm, 1+ ankle swelling particularly near the medial malleoli b/l. Minimal redness and erythema noted. 2+ pulse present. Toe nails discoloration and detachment from skin noted b/l. Left ankle swelling tenderness present. 5/5 muscle strength with dorsiflexion and plantarflexion. Laboratory Results - last 24 hr 06/03/18 06/03/18 06/03/18 01:47 06:00 06:00 WBC 4.3 RBC 4.17 Hgb 12.8 Hct 38.1 MCV 91.5 MCH 30.7 MCHC 33.6 RDW 13.8 Plt Count 170 MPV 9.6 PT with INR 35.30 H INR 3.12 H* Sodium 141 Potassium 4.2 Chloride 107 Carbon Dioxide 27 Anion Gap 7 L BUN 16 Creatinine 1.3 Creat Clearance w eGFR 56.12 Random Glucose 134 H D Calcium 9.7 Phosphorus 2.6 Magnesium 2.1 Random Vancomycin 06/03/18 12:00 WBC RBC Hgb Hct MCV MCH MCHC RDW Plt Count MPV PT with INR INR Sodium Potassium Chloride Carbon Dioxide Anion Gap BUN Creatinine Creat Clearance w eGFR Random Glucose Calcium Phosphorus Magnesium Random Vancomycin 8.64 Active Medications Acetaminophen (Tylenol -) 650 mg PO Q4H PRN PRN Reason: PAIN LEVEL 1-5 Albuterol Sulfate (Ventolin Hfa Inhaler -) 2 puff IH Q4H PRN PRN Reason: SHORT OF BREATH/WHEEZING Budesonide/Formoterol Fumarate (Symbicort 80/4.5mcg -) 2 puff IH BID [facility] Last Admin: 06/03/18 21:52 Dose: Not Given Diltiazem HCl (Cardizem Cd -) 240 mg PO DAILY [facility] Last Admin: 06/03/18 11:04 Dose: 240 mg Vancomycin HCl 1,500 mg/ (Dextrose) 500 mls @ 250 mls/hr IVPB Q24H [facility]; Protocol Last Admin: 06/03/18 17:33 Dose: 250 mls/hr Montelukast Sodium (Singulair -) 10 mg PO HS [facility] Last Admin: 06/03/18 21:51 Dose: 10 mg Prednisone (Deltasone -) 40 mg PO DAILY [facility] Tamsulosin HCl (Flomax -) 0.4 mg PO DAILY@0830 [facility] Last Admin: 06/03/18 11:03 Dose: 0.4 mg Valsartan (Diovan -) 80 mg PO DAILY [facility] Last Admin: 06/03/18 11:05 Dose: 80 mg Warfarin Sodium (Coumadin -) 10 mg PO DAILY@1800 [facility] Last Admin: 06/03/18 18:30 Dose: 10 mg IMAGING: - Left ankle XRay: Since the prior study of 11/03/2017, again noted the is the ankle swelling with degenerative changes and old trauma about the ankle joint. There is calcaneal spurring and other arthritic changes seen in the tarsal bones. If one is concerned about osteomyelitis, three-phase bone scan or MR may be of help. - CXR: Median sternotomy wires and cardiac valve prosthesis noted. No acute focal airspace disease or pleural effusion. Normal cardiac silhouette size. 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 1. Cellulitis of left ankle - Completed 10 day course of clindamycin starting on 05/12 for cellulitis which did not improve, then was given Bactrim/Keflex on 05/28 and still continues to experience symptoms - LLE warmth, swelling, tenderness, and skin changes noted on exam - Remians AFebrile and without WBC - Started on Vancomycin and Zosyn in ED, continued on Vancomycin only (Day 2) - ID (Dr. Beltran) Consulted, appreciate rec's, Will obtain BCx and continue Vancomycin - Podiatry Consulted - Consider Derm consult given hx of recurrent cellulitis flare ups 2. Asthma - Expiratory wheezes present, Patient denies SOB - Eosinophilia (11.4) on admission - CXR Noted - Pulmonary (Dr. Ernst) Consulted, appreciate rec's - CPAP @ 9 cm H2O - Continue Ventolin Hfa Inhaler 2 puff IH Q4H PRN - Continue Symbicort 80/4.5mcg 2 puff IH BID - Continue Singulair 10 mg PO HS - Continue Prednisone 40 mg PO DAILY 3. CAD s/p Mechanical Valve - INR 3.12 - Continue Home Warfarin dose 4. HTN - BP: 143-160/66-89 - Continue Cardizem 240 mg PO DAILY - Continue Valsartan 80 mg PO DAILY 5. PPx - DVT: INR >3, Continue Warfarin 6. FEN - PO Fluids - Lytes wnl, replete as needed - Regular diet Dispo: Admit to med/surg Visit type - Emergency Visit Emergency Visit: Yes ED Registration Date: 06/02/18 Care time: The patient presented to the Emergency Department on the above date and was hospitalized for further evaluation of their emergent condition. - New Patient This patient is new to me today: Yes Date on this admission: 06/04/18 - Critical Care Critical Care patient: No
[2018-06-04 07:15] LABS: BASO % 0.1 % (0-2.0); HEMATOCRIT 39.3 % (35.4-49); HEMOGLOBIN 13.3 GM/dL (11.7-16.9); LYMPH % 9.5 % (8-40); MCH 30.7 pg (25.7-33.7); MCHC 33.7 g/dl (32.0-35.9); MEAN CELL VOLUME 90.9 fl (80-96); MEAN PLT VOLUME 9.2 fl (7.5-11.1); NEUT % 87.4 % (42.8-82.8); PLATELET COUNT 185 K/MM3 (134-434); RBC 4.33 M/mm3 (4.00-5.60); RDW 13.8 % (11.9-15.9); WHITE BLOOD COUNT 10.4 K/mm3 (4.0-10.0)
[2018-06-04 07:44] LABS: INR 2.93 (0.83-1.09); PROTHROMBIN TIME (PATIENT) 33.1 SEC (9.7-13.0)
[2018-06-04] MEDS: TAMSULOSIN HCL 0.4 MG CAP.ER.24H (FP) PO SCH (09:11)
--- NOTE | 2018-06-04 09:11 | EKG ---
Test Reason : Blood Pressure : / mmHG Vent. Rate : 077 BPM Atrial Rate : 077 BPM P-R Int : 212 ms QRS Dur : 114 ms QT Int : 398 ms P-R-T Axes : 068 -31 055 degrees QTc Int : 450 ms SINUS RHYTHM WITH 1ST DEGREE A-V BLOCK LEFT AXIS DEVIATION ABNORMAL ECG WHEN COMPARED WITH ECG OF 03-JUN-2018 13:06, ST ELEVATION NOW PRESENT IN ANTERIOR LEADS Confirmed by LAVINIA HERNANDEZ MD ([id number]) on 06/04/2018 9:11:20 AM Referred By: GERMAINE PACK DR Confirmed By:LAVINIA HERNANDEZ MD
[2018-06-04] MEDS: VALSARTAN 80 MG TABLET (UD) PO SCH (09:58)
[2018-06-04] MEDS: BUDESONIDE/FORMETEROL FUMARATE 80/4.5 mcg INHALER IH SCH (09:59)
[2018-06-04] MEDS ORDERED: predniSONE 20 MG TABLET (UD) PO SCH (10:00)
--- NOTE | 2018-06-04 12:07 | PN ---
Physical Exam: SUBJECTIVE: Patient seen and examined, no acute events over night dermatitis improving with less erythema tenderness and less edema no wheezing or sob. OBJECTIVE: Vital Signs Period Temp Pulse Resp BP Sys/Fung Pulse Ox Last 24 Hr 98.2 F-98.7 F 54-80 18-20 139-160/66-102 95-98 GENERAL: The patient is awake, alert, and fully oriented, in no acute distress. HEAD: Normal with no signs of trauma. EYES: PERRL, extraocular movements intact, sclera anicteric, conjunctiva clear. No ptosis. ENT: Ears normal, nares patent, oropharynx clear without exudates, moist mucous membranes. NECK: Trachea midline, full range of motion, supple. LUNGS: Breath sounds equal, clear to auscultation bilaterally, no wheezes, no crackles, no accessory muscle use. HEART: Regular rate and rhythm, S1, S2 without murmur, rub or gallop. ABDOMEN: Soft, nontender, nondistended, normoactive bowel sounds, no guarding, no rebound, no hepatosplenomegaly, no masses. EXTREMITIES: 2+ pulses, warm, well-perfused, no edema. NEUROLOGICAL: Cranial nerves II through XII grossly intact. Normal speech, gait not observed. PSYCH: Normal mood, normal affect. SKIN: Warm, dry, normal turgor, no rashes or lesions noted Laboratory Results - last 24 hr 06/03/18 06/04/18 06/04/18 12:00 06:00 06:00 WBC 10.4 H RBC 4.33 Hgb 13.3 Hct 39.3 MCV 90.9 MCH 30.7 MCHC 33.7 RDW 13.8 Plt Count 185 MPV 9.2 Absolute Neuts (auto) 9.1 Neutrophils % 87.4 H D Lymphocytes % 9.5 D Monocytes % 3.0 L Eosinophils % 0.0 D Basophils % 0.1 Nucleated RBC % 0 PT with INR 33.10 H INR 2.93 H Random Vancomycin 8.64 Active Medications Generic Name Dose Route Start Last Admin Trade Name Freq PRN Reason Stop Dose Admin Acetaminophen 650 mg 06/03/18 00:56 Tylenol - PO Q4H PRN PAIN LEVEL 1-5 Albuterol Sulfate 2 puff 06/02/18 23:57 Ventolin Hfa Inhaler - IH Q4H PRN SHORT OF BREATH/WHEEZING Budesonide/Formoterol Fumarate 2 puff 06/03/18 10:00 06/04/18 09:59 Symbicort 80/4.5mcg - IH 2 puff BID [facility] Administration Diltiazem HCl 240 mg 06/03/18 10:00 06/04/18 09:58 Cardizem Cd - PO 240 mg DAILY [facility] Administration Vancomycin HCl 1,500 mg/ 500 mls @ 250 mls/hr 06/03/18 16:00 06/03/18 17:33 Dextrose IVPB 250 mls/hr Q24H [facility] Administration Protocol Montelukast Sodium 10 mg 06/03/18 22:00 06/03/18 21:51 Singulair - PO 10 mg HS [facility] Administration Prednisone 40 mg 06/04/18 10:00 06/04/18 09:58 Deltasone - PO 40 mg DAILY [facility] Administration Tamsulosin HCl 0.4 mg 06/03/18 08:30 06/04/18 09:11 Flomax - PO 0.4 mg DAILY@0830 [facility] Administration Valsartan 80 mg 06/03/18 10:00 06/04/18 09:58 Diovan - PO 80 mg DAILY [facility] Administration Warfarin Sodium 10 mg 06/03/18 18:00 06/03/18 18:30 Coumadin - PO 10 mg DAILY@1800 [facility] Administration CBC, BMP 06/04/18 06:00 06/03/18 06:00 IMAGING: - Left ankle XRay: Since the prior study of 11/03/2017, again noted the is the ankle swelling with degenerative changes and old trauma about the ankle joint. There is calcaneal spurring and other arthritic changes seen in the tarsal bones. If one is concerned about osteomyelitis, three-phase bone scan or MR may be of help. - CXR: Median sternotomy wires and cardiac valve prosthesis noted. No acute focal airspace disease or pleural effusion. Normal cardiac silhouette size. 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 1. Cellulitis of left ankle - Completed 10 day course of clindamycin starting on 05/12 for cellulitis which did not improve, then was given Bactrim/Keflex on 05/28 and still continues to experience symptoms - LLE warmth, swelling, tenderness, and skin changes noted on exam - Remians AFebrile and without WBC - Started on Vancomycin and Zosyn in ED, continued on Vancomycin only (Day 2) - ID (Dr. Beltran) Consulted, appreciate rec's, Will obtain BCx and continue Vancomycin - Podiatry Consulted - Consider Derm consult given hx of recurrent cellulitis flare ups 2. Asthma - Expiratory wheezes present, Patient denies SOB - Eosinophilia (11.4) on admission - CXR Noted - Pulmonary (Dr. Ernst) Consulted, appreciate rec's - CPAP @ 9 cm H2O - Continue Ventolin Hfa Inhaler 2 puff IH Q4H PRN - Continue Symbicort 80/4.5mcg 2 puff IH BID - Continue Singulair 10 mg PO HS - Continue Prednisone 40 mg PO DAILY 3. CAD s/p Mechanical Valve - INR 3.12 - Continue Home Warfarin dose 4. HTN - BP: 143-160/66-89 - Continue Cardizem 240 mg PO DAILY - Continue Valsartan 80 mg PO DAILY 5. PPx - DVT: INR >3, Continue Warfarin 6. FEN - PO Fluids - Lytes wnl, replete as needed - Regular diet Dispo: Admit to med/surg
--- NOTE | 2018-06-04 13:35 | PN ---
Teaching Attending Note Name of Resident: Michael Ferrari ATTENDING PHYSICIAN STATEMENT I saw and evaluated the patient. I reviewed the resident's note and discussed the case with the resident. I agree with the resident's findings and plan as documented with exceptions below. SUBJECTIVE: Patient seen and examined. left leg symptoms improved, breathing stable, no new fevers/chills. OBJECTIVE: Vital Signs Period Temp Pulse Resp BP Sys/Fung Pulse Ox Last 24 Hr 98.2 F-98.7 F 54-80 18-20 139-160/66-102 95-98 Intake & Output 06/01/18 06/02/18 06/03/18 06/04/18 23:59 23:59 23:59 23:59 Intake Total 1350 200 Balance 1350 200 Weight 260 lb 256 lb 11.2 oz General: sitting in bed in no acute distress Chest: good air entry bilaterally, no rales or wheezing Abdomen:Soft, obese Extremities: improved erythema/swelling above left medial malleolus, otherwise unchanged, bilateral feet findings Active Medications Acetaminophen (Tylenol -) 650 mg PO Q4H PRN PRN Reason: PAIN LEVEL 1-5 Albuterol Sulfate (Ventolin Hfa Inhaler -) 2 puff IH Q4H PRN PRN Reason: SHORT OF BREATH/WHEEZING Budesonide/Formoterol Fumarate (Symbicort 80/4.5mcg -) 2 puff IH BID [facility] Last Admin: 06/04/18 09:59 Dose: 2 puff Diltiazem HCl (Cardizem Cd -) 240 mg PO DAILY [facility] Last Admin: 06/04/18 09:58 Dose: 240 mg Vancomycin HCl 1,500 mg/ (Dextrose) 500 mls @ 250 mls/hr IVPB Q24H [facility]; Protocol Last Admin: 06/03/18 17:33 Dose: 250 mls/hr Montelukast Sodium (Singulair -) 10 mg PO HS [facility] Last Admin: 06/03/18 21:51 Dose: 10 mg Prednisone (Deltasone -) 40 mg PO DAILY [facility] Last Admin: 06/04/18 09:58 Dose: 40 mg Tamsulosin HCl (Flomax -) 0.4 mg PO DAILY@0830 [facility] Last Admin: 06/04/18 09:11 Dose: 0.4 mg Valsartan (Diovan -) 80 mg PO DAILY [facility] Last Admin: 06/04/18 09:58 Dose: 80 mg Warfarin Sodium (Coumadin -) 10 mg PO DAILY@1800 [facility] Last Admin: 06/03/18 18:30 Dose: 10 mg Laboratory Results - last 24 hr 06/04/18 06/04/18 06:00 06:00 WBC 10.4 H RBC 4.33 Hgb 13.3 Hct 39.3 MCV 90.9 MCH 30.7 MCHC 33.7 RDW 13.8 Plt Count 185 MPV 9.2 Absolute Neuts (auto) 9.1 Neutrophils % 87.4 H D Lymphocytes % 9.5 D Monocytes % 3.0 L Eosinophils % 0.0 D Basophils % 0.1 Nucleated RBC % 0 PT with INR 33.10 H INR 2.93 H ASSESSMENT AND PLAN: 62 yom with PMHx of Samter's triad (Asthma, nasal polyps, ASA sensitivity), CAD s/p aortic valve placement (on warfarin), HTN, HLD, Sleep apnea, and multiple bouts of cellulitis, here with LLE cellulitis. -LLE cellulitis -Bilateral feet ?dermatitis -Asthma -?CAD -s/p mechanical aortic valve -Obesity -LELE Plan Id input noted, vancomycin day 2, monitor levels. Podiatry input. Will need dermatology eval given recurrent episodes of cellulitis and evidence of dermatitis bilateral LE. Pulmonary input noted. Currently does not look in asthma exac. Prednisone 30 mg with rapid taper, nebs prn. nightly CPAP. DVTPPX dispo in 1-2 days pending clinical improvement. Plan discussed with patient in detail, all questions answered.
[2018-06-04] MEDS ORDERED: predniSONE 10 MG TABLET (UD) PO SCH (13:36)
--- NOTE | 2018-06-04 13:53 | PN ---
Progress Note (short form) - Note Progress Note: PULMONARY States breathing better today but still some cough and wheezing. Vital Signs Period Temp Pulse Resp BP Sys/Fung Pulse Ox Last 24 Hr 98.2 F-98.7 F 54-80 18-20 139-160/66-102 95-98 Gen: NAD at rest Heart: RRR Lung: scattered wheezes, rhonchi Abd: soft, nontender Ext: no edema CBC, BMP 06/04/18 06:00 06/03/18 06:00 Active Medications Acetaminophen (Tylenol -) 650 mg PO Q4H PRN PRN Reason: PAIN LEVEL 1-5 Albuterol Sulfate (Ventolin Hfa Inhaler -) 2 puff IH Q4H PRN PRN Reason: SHORT OF BREATH/WHEEZING Budesonide/Formoterol Fumarate (Symbicort 80/4.5mcg -) 2 puff IH BID [facility] Last Admin: 06/04/18 09:59 Dose: 2 puff Diltiazem HCl (Cardizem Cd -) 240 mg PO DAILY [facility] Last Admin: 06/04/18 09:58 Dose: 240 mg Vancomycin HCl 1,500 mg/ (Dextrose) 500 mls @ 250 mls/hr IVPB Q24H [facility]; Protocol Last Admin: 06/03/18 17:33 Dose: 250 mls/hr Montelukast Sodium (Singulair -) 10 mg PO [facility] Last Admin: 06/03/18 21:51 Dose: 10 mg Prednisone (Deltasone -) 30 mg PO DAILY [facility] Tamsulosin HCl (Flomax -) 0.4 mg PO DAILY@0830 [facility] Last Admin: 06/04/18 09:11 Dose: 0.4 mg Valsartan (Diovan -) 80 mg PO DAILY [facility] Last Admin: 06/04/18 09:58 Dose: 80 mg Warfarin Sodium (Coumadin -) 10 mg PO DAILY@1800 [facility] Last Admin: 06/03/18 18:30 Dose: 10 mg A/P Cellulitis Acute Asthma Exacerbation CAD s/p AVR HTN Hyperlipidemia Obstructive Sleep Apnea - continue antibiotics - continue prednisone - inhaled bronchodilators - will increase symbicort to home dose of 160/4.5mcg 2 puffs BID - singulair - CPAP at night
--- NOTE | 2018-06-04 14:17 | CONSULT ---
Consult - text type - Consultation Consultation Note: Podiatry Consultation: Pleasant 62 year old M presented to ED for admission for L ankle swelling/ cellulitis. Patient has had several bouts of pain/swelling/redness in the ankle , has trialed PO abx several times with no resolution. States that the swelling and pain come and go. Denies trauma to the foot/ankle. Denies F/V/N/C /SOB/CP. Afebrile, VSS. PMHx: Samter's triad, HTN, HLP, CAD on AC (aortic valve replacement) Meds: noted ALL: ASA, NSAIDs ANÍBAL: L foot: pedal pulses palpable, TG wnl, CFT brisk to all toes. There is dry scaling lesions medial aspect of ankle. There is tenderness along the course and insertion of the posterior tibial tendon. There is pain with inversion and plantarflexion of the foot. There are no open wounds, no purulence, no fluctuance, no streaking cellulitis, no signs of acute infection. There is valgus deformity of the foot on weightbearing with collapsing of arch on weightbearing. L ankle XR: degenerative changes, spurring and joint space narrowing suggestive of osteoarthritis Imp: 62 year old M with L ankle edema, cellulitis 1. Abx per ID 2. Discussed findings with patient. May have posterior tibial tendon dysfunction, which can cause isolated swelling and erythema about the ankle and is the area of his pain. MRI could help better define this, however can be done outpatient. 3. Discussed biomechanical therapy, i.e. orthotic therapy, which can be investigated outpatient. 4. ?Venous stasis. recommend ammonium lactate for skin hydration. 5. No acute intervention, thank you for the courtesy of this consultation. Jami Quintero DPM
--- NOTE | 2018-06-04 14:49 | PN ---
Progress Note, Physician History of Present Illness: Reports L ankle pain with weight bearing No fever/ chills Tolerating antibiotics - Current Medication List Current Medications: Active Medications Acetaminophen (Tylenol -) 650 mg PO Q4H PRN PRN Reason: PAIN LEVEL 1-5 Albuterol Sulfate (Ventolin Hfa Inhaler -) 2 puff IH Q4H PRN PRN Reason: SHORT OF BREATH/WHEEZING Budesonide/Formoterol Fumarate (Symbicort 160/4.5mcg -) 2 puff IH BID [facility] Diltiazem HCl (Cardizem Cd -) 240 mg PO DAILY [facility] Last Admin: 06/04/18 09:58 Dose: 240 mg Vancomycin HCl 1,500 mg/ (Dextrose) 500 mls @ 250 mls/hr IVPB Q24H [facility]; Protocol Last Admin: 06/03/18 17:33 Dose: 250 mls/hr Montelukast Sodium (Singulair -) 10 mg PO HS [facility] Last Admin: 06/03/18 21:51 Dose: 10 mg Prednisone (Deltasone -) 30 mg PO DAILY [facility] Tamsulosin HCl (Flomax -) 0.4 mg PO DAILY@0830 [facility] Last Admin: 06/04/18 09:11 Dose: 0.4 mg Valsartan (Diovan -) 80 mg PO DAILY [facility] Last Admin: 06/04/18 09:58 Dose: 80 mg Warfarin Sodium (Coumadin -) 10 mg PO DAILY@1800 [facility] Last Admin: 06/03/18 18:30 Dose: 10 mg - Objective Vital Signs: Vital Signs Temperature 98.7 F 06/04/18 14:25 Pulse Rate 70 06/04/18 14:25 Respiratory Rate 20 06/04/18 14:25 Blood Pressure 154/94 06/04/18 14:25 O2 Sat by Pulse Oximetry (%) 98 06/04/18 09:00 Constitutional: Yes: No Distress Eyes: Yes: Conjunctiva Clear Cardiovascular: Yes: Regular Rate and Rhythm, S1, S2 Respiratory: Yes: CTA Bilaterally Gastrointestinal: Yes: Normal Bowel Sounds, Soft. No: Tenderness Extremities: Yes: Other (faint erythema/ warmth L medial ankle) Edema: Yes Labs: CBC, BMP 06/04/18 06:00 06/03/18 06:00 INR, PTT INR 2.93 (0.83-1.09) H 06/04/18 06:00 Assessment/Plan Cellulitis L LE- improved failed outpatient oral antibiotic therapy S/P AVR D/C vancomycin after tomorrow's dose, observe off
[2018-06-04] MEDS: VANCOMYCIN 1,500 MG in DEXTROSE 5%-WATER - 500 ML IVPB SCH (16:14)
[2018-06-04] MEDS ORDERED: PT OWN MED DRAWER 7, Y5N ONE ×2 (17:40→18:06)
[2018-06-04] MEDS: WARFARIN NA 10 MG TABLET (FP) PO SCH (17:42)
[2018-06-04] MEDS: MONTELUKAST NA 10 MG TABLET PO SCH (21:33)
[2018-06-04] MEDS: BUDESONIDE/FORMETEROL FUMARATE 160/4.5 mcg INHALER IH SCH (21:34)
[2018-06-04] MEDS: AMMONIUM LACTATE 12% LOTION 225 GM BOTTLE TP SCH (21:41)
[2018-06-05 07:56] LABS: BASO % 0.2 % (0-2.0); EOS % 0.5 % (0-4.5); HEMATOCRIT 37.1 % (35.4-49); HEMOGLOBIN 12.7 GM/dL (11.7-16.9); LYMPH % 19.1 % (8-40); MCH 30.6 pg (25.7-33.7); MCHC 34.1 g/dl (32.0-35.9); MEAN CELL VOLUME 89.8 fl (80-96); MEAN PLT VOLUME 9.3 fl (7.5-11.1); MONO % 4.5 % (3.8-10.2); NEUT % 75.7 % (42.8-82.8); PLATELET COUNT 177 K/MM3 (134-434); RBC 4.13 M/mm3 (4.00-5.60); RDW 13.8 % (11.9-15.9); WHITE BLOOD COUNT 8.4 K/mm3 (4.0-10.0)
[2018-06-05 08:02] LABS: PROTHROMBIN TIME (PATIENT) 39.6 SEC (9.7-13.0)
[2018-06-05 08:38] LABS: CHLORIDE 109 mmol/L (98-107); POTASSIUM 4.1 mmol/L (3.5-5.1); SODIUM 142 mmol/L (136-145)
[2018-06-05 08:42] LABS: INR 3.5 (0.83-1.09)
[2018-06-05 08:46] LABS: ANION GAP 7 (8-16); BLOOD UREA NITROGEN 21 mg/dL (7-18); CALCIUM 9.2 mg/dL (8.5-10.1); CO2 26 mmol/L (21-32); GLUCOSE,RANDOM 93 mg/dL (74-106)
[2018-06-05] MEDS: TAMSULOSIN HCL 0.4 MG CAP.ER.24H (FP) PO SCH (09:18)
[2018-06-05] MEDS: VALSARTAN 80 MG TABLET (UD) PO SCH (09:18)
[2018-06-05] MEDS: AMMONIUM LACTATE 12% LOTION 225 GM BOTTLE TP SCH ×2 (09:19→22:06)
[2018-06-05] MEDS: BUDESONIDE/FORMETEROL FUMARATE 160/4.5 mcg INHALER IH SCH ×2 (09:19→22:05)
[2018-06-05] MEDS ORDERED: predniSONE 20 MG TABLET (UD) PO SCH (10:00)
--- NOTE | 2018-06-05 10:10 | PN ---
Physical Exam: SUBJECTIVE: Patient seen and examined, left symptoms markedly improved, almost resolved. No new concerns. OBJECTIVE: Vital Signs Period Temp Pulse Resp BP Sys/Fung Pulse Ox Last 24 Hr 98.2 F-98.7 F 58-94 20-20 123-154/58-94 99 GENERAL:sitting in bed in no acute distress Extremities: resolved erythema, minimal swelling above left ankle, no warmth or tenderness, unchanged bilateral lower extremities hyperpigmentation and scabs. Abdomen:soft, obese, NT Chest: good air entry bilaterally, no rales or wheezing noted Laboratory Results - last 24 hr 06/05/18 06/05/18 06/05/18 07:07 07:07 07:07 WBC 8.4 RBC 4.13 Hgb 12.7 Hct 37.1 MCV 89.8 MCH 30.6 MCHC 34.1 RDW 13.8 Plt Count 177 MPV 9.3 Absolute Neuts (auto) 6.4 Neutrophils % 75.7 Lymphocytes % 19.1 D Monocytes % 4.5 Eosinophils % 0.5 D Basophils % 0.2 Nucleated RBC % 0 PT with INR 39.60 H INR 3.50 H* Sodium 142 Potassium 4.1 Chloride 109 H Carbon Dioxide 26 Anion Gap 7 L BUN 21 H Creatinine 1.0 Creat Clearance w eGFR > 60 Random Glucose 93 D Calcium 9.2 Active Medications Generic Name Dose Route Start Last Admin Trade Name Freq PRN Reason Stop Dose Admin Acetaminophen 650 mg 06/03/18 00:56 Tylenol - PO Q4H PRN PAIN LEVEL 1-5 Albuterol Sulfate 2 puff 06/02/18 23:57 Ventolin Hfa Inhaler - IH Q4H PRN SHORT OF BREATH/WHEEZING Budesonide/Formoterol Fumarate 2 puff 06/04/18 22:00 06/05/18 09:19 Symbicort 160/4.5mcg - IH 2 puff BID [facility] Administration Diltiazem HCl 240 mg 06/03/18 10:00 06/05/18 09:18 Cardizem Cd - PO 240 mg DAILY [facility] Administration Vancomycin HCl 1,500 mg/ 500 mls @ 250 mls/hr 06/03/18 16:00 06/04/18 16:14 Dextrose IVPB 06/05/18 20:00 250 mls/hr Q24H [facility] Administration Protocol Lactic Acid 1 applic 06/04/18 22:00 08/05/18 09:19 Lac-Hydrin 12 TP 1 applic BID [facility]A Administration Montelukast Sodium 10 mg 06/03/18 22:00 06/04/18 21:33 Singulair - PO 10 mg HS [facility] Administration Prednisone 20 mg 06/05/18 10:00 06/05/18 09:18 Deltasone - PO 06/05/18 12:00 20 mg DAILY [facility] Administration Prednisone 10 mg 06/06/18 10:00 Deltasone - PO 06/06/18 10:01 DAILY [facility] Tamsulosin HCl 0.4 mg 06/03/18 08:30 06/05/18 09:18 Flomax - PO 0.4 mg DAILY@0830 [facility] Administration Valsartan 80 mg 06/03/18 10:00 06/05/18 09:18 Diovan - PO 80 mg DAILY [facility] Administration Warfarin Sodium 10 mg 06/03/18 18:00 06/04/18 17:42 Coumadin - PO 10 mg DAILY@1800 [facility] Administration ASSESSMENT/PLAN: 62 yom with PMHx of Samter's triad (Asthma, nasal polyps, ASA sensitivity), CAD s/p aortic valve placement (on warfarin), HTN, HLD, Sleep apnea, and multiple bouts of cellulitis, here with LLE cellulitis. -LLE cellulitis -Bilateral feet ?dermatitis -Asthma -?CAD -s/p mechanical aortic valve -Obesity -LELE Plan markedly improved. Id input noted, vancomycin day 3, d/c after today's dose. Podiatry input noted. Ammonium lactate to the wounds. Outpatient follow up. Will need dermatology eval given recurrent episodes of cellulitis and evidence of dermatitis bilateral LE. Pulmonary input noted. Currently does not look in asthma exac. Prednisone 20 mg with rapid taper to off tomorrow. INR noted, hold coumadin today, resume home dose tomorrow. nightly CPAP. DVTPPX dispo anticipate d/c in 24 hours with outpatient podiatry and dermatology follow up. Plan discussed with patient in detail, all questions answered. Visit type - Emergency Visit Emergency Visit: Yes ED Registration Date: 06/02/18 Care time: The patient presented to the Emergency Department on the above date and was hospitalized for further evaluation of their emergent condition. - New Patient This patient is new to me today: No - Critical Care Critical Care patient: No - Discharge Referral Referred to [facility] No
--- NOTE | 2018-06-05 12:32 | PN ---
Progress Note (short form) - Note Progress Note: PULMONARY States breathing better today, less cough and wheezing. Vital Signs Period Temp Pulse Resp BP Sys/Fung Pulse Ox Last 24 Hr 98.2 F-98.7 F 58-94 20-20 123-154/58-94 99 Gen: NAD at rest Heart: RRR Lung: scattered wheezes Abd: soft, nontender Ext: no edema CBC, BMP 06/05/18 07:07 06/05/18 07:07 Active Medications Acetaminophen (Tylenol -) 650 mg PO Q4H PRN PRN Reason: PAIN LEVEL 1-5 Albuterol Sulfate (Ventolin Hfa Inhaler -) 2 puff IH Q4H PRN PRN Reason: SHORT OF BREATH/WHEEZING Budesonide/Formoterol Fumarate (Symbicort 160/4.5mcg -) 2 puff IH BID [facility] Last Admin: 06/05/18 09:19 Dose: 2 puff Diltiazem HCl (Cardizem Cd -) 240 mg PO DAILY [facility] Last Admin: 06/05/18 09:18 Dose: 240 mg Vancomycin HCl 1,500 mg/ (Dextrose) 500 mls @ 250 mls/hr IVPB Q24H [facility]; Protocol Stop: 06/05/18 20:00 Last Admin: 06/04/18 16:14 Dose: 250 mls/hr Lactic Acid (Lac-Hydrin 12) 1 applic TP BID [facility] Last Admin: 06/05/18 09:19 Dose: 1 applic Montelukast Sodium (Singulair -) 10 mg PO HS [facility] Last Admin: 06/04/18 21:33 Dose: 10 mg Prednisone (Deltasone -) 10 mg PO DAILY [facility] Stop: 06/06/18 10:01 Tamsulosin HCl (Flomax -) 0.4 mg PO DAILY@0830 [facility] Last Admin: 06/05/18 09:18 Dose: 0.4 mg Valsartan (Diovan -) 80 mg PO DAILY [facility] Last Admin: 06/05/18 09:18 Dose: 80 mg Warfarin Sodium (Coumadin -) 10 mg PO DAILY@1800 [facility] Last Admin: 06/04/18 17:42 Dose: 10 mg A/P Cellulitis Acute Asthma Exacerbation CAD s/p AVR HTN Hyperlipidemia Obstructive Sleep Apnea - continue antibiotics - prednisone taper - inhaled bronchodilators - singulair - CPAP at night
[2018-06-05] MEDS: VANCOMYCIN 1,500 MG in DEXTROSE 5%-WATER - 500 ML IVPB SCH (18:04)
[2018-06-05] MEDS: MONTELUKAST NA 10 MG TABLET PO SCH (22:05)
--- NOTE | 2018-06-06 08:11 | PN ---
Teaching Attending Note Name of Resident: Lyla Teran ATTENDING PHYSICIAN STATEMENT I saw and evaluated the patient. I reviewed the resident's note and discussed the case with the resident. I agree with the resident's findings and plan as documented with exceptions below. SUBJECTIVE: Patient seen and examined. no leg pain, doing well. breathing well. OBJECTIVE: Vital Signs Period Temp Pulse Resp BP Sys/Fung Pulse Ox Last 24 Hr 97.8 F-98.8 F 56-74 20-20 108-146/48-98 94-95 Intake & Output 06/03/18 06/04/18 06/05/18 06/06/18 23:59 23:59 23:59 23:59 Intake Total 1600 850 320 50 Balance 1600 850 320 50 Weight 256 lb 11.2 oz General: sitting in bed in no acute distress Extremities: resolved erythema, minimal to none ankle swelling. Chest: good air entry bilaterally, no rales or wheezing Active Medications Acetaminophen (Tylenol -) 650 mg PO Q4H PRN PRN Reason: PAIN LEVEL 1-5 Albuterol Sulfate (Ventolin Hfa Inhaler -) 2 puff IH Q4H PRN PRN Reason: SHORT OF BREATH/WHEEZING Budesonide/Formoterol Fumarate (Symbicort 160/4.5mcg -) 2 puff IH BID [facility] Last Admin: 06/05/18 22:05 Dose: 2 puff Diltiazem HCl (Cardizem Cd -) 240 mg PO DAILY [facility] Last Admin: 06/05/18 09:18 Dose: 240 mg Lactic Acid (Lac-Hydrin 12) 1 applic TP BID [facility] Last Admin: 06/05/18 22:06 Dose: 1 applic Montelukast Sodium (Singulair -) 10 mg PO HS [facility] Last Admin: 06/05/18 22:05 Dose: 10 mg Prednisone (Deltasone -) 10 mg PO DAILY [facility] Stop: 06/06/18 10:01 Tamsulosin HCl (Flomax -) 0.4 mg PO DAILY@0830 [facility] Last Admin: 06/05/18 09:18 Dose: 0.4 mg Valsartan (Diovan -) 80 mg PO DAILY [facility] Last Admin: 06/05/18 09:18 Dose: 80 mg Warfarin Sodium (Coumadin -) 10 mg PO DAILY@1800 [facility] Last Admin: 06/04/18 17:42 Dose: 10 mg ASSESSMENT AND PLAN: 62 yom with PMHx of Samter's triad (Asthma, nasal polyps, ASA sensitivity), CAD s/p aortic valve placement (on warfarin), HTN, HLD, Sleep apnea, and multiple bouts of cellulitis, here with LLE cellulitis. -LLE cellulitis -Bilateral feet ?dermatitis -Asthma -?CAD -s/p mechanical aortic valve -Obesity -LELE Plan markedly improved. Id input noted, s/p 3 days of vancomycin. Podiatry input noted. Ammonium lactate to the wounds. Outpatient follow up. Will need dermatology eval given recurrent episodes of cellulitis and evidence of dermatitis bilateral LE. Pulmonary input noted. Currently does not look in asthma exac. Prednisone rapid taper to off, last dose today. INR noted, hold coumadin today, resume home dose tomorrow. nightly CPAP. DVTPPX dispo d/.c home today with outpatient podiatry and dermatology follow up. Patient advised to continue home dose coumadin 10 mg and have INR check in 3 days. Plan discussed with patient in detail, all questions answered.
[2018-06-06 08:15] LABS: PROTHROMBIN TIME (PATIENT) 37.3 SEC (9.7-13.0)
[2018-06-06 09:02] LABS: INR 3.3 (0.83-1.09)
[2018-06-06] MEDS: AMMONIUM LACTATE 12% LOTION 225 GM BOTTLE TP SCH (09:41)
[2018-06-06] MEDS: BUDESONIDE/FORMETEROL FUMARATE 160/4.5 mcg INHALER IH SCH (09:42)
[2018-06-06] MEDS: VALSARTAN 80 MG TABLET (UD) PO SCH (09:43)
[2018-06-06] MEDS: TAMSULOSIN HCL 0.4 MG CAP.ER.24H (FP) PO SCH (09:43)
--- NOTE | 2018-06-06 09:52 | PN ---
Progress Note (short form) - Note Progress Note: Overall breathing has improved. Less cough and wheezing. Intake & Output 06/03/18 06/04/18 06/05/18 06/06/18 23:59 23:59 23:59 23:59 Intake Total 1600 850 320 50 Balance 1600 850 320 50 Weight 256 lb 11.2 oz Last Vital Signs Temp Pulse Resp BP Pulse Ox 97.8 F 59 L 20 146/92 95 06/06/18 06:14 06/06/18 06:14 06/06/18 06:14 06/06/18 06:14 06/05/18 21:00 Active Medications Acetaminophen (Tylenol -) 650 mg PO Q4H PRN PRN Reason: PAIN LEVEL 1-5 Albuterol Sulfate (Ventolin Hfa Inhaler -) 2 puff IH Q4H PRN PRN Reason: SHORT OF BREATH/WHEEZING Budesonide/Formoterol Fumarate (Symbicort 160/4.5mcg -) 2 puff IH BID [facility] Last Admin: 06/06/18 09:42 Dose: 2 puff Diltiazem HCl (Cardizem Cd -) 240 mg PO DAILY [facility] Last Admin: 06/06/18 09:42 Dose: 240 mg Lactic Acid (Lac-Hydrin 12) 1 applic TP BID [facility] Last Admin: 06/06/18 09:41 Dose: 1 applic Montelukast Sodium (Singulair -) 10 mg PO HS [facility] Last Admin: 06/05/18 22:05 Dose: 10 mg Prednisone (Deltasone -) 10 mg PO DAILY [facility] Stop: 06/06/18 10:01 Last Admin: 06/06/18 09:43 Dose: 10 mg Tamsulosin HCl (Flomax -) 0.4 mg PO DAILY@0830 [facility] Last Admin: 06/06/18 09:43 Dose: 0.4 mg Valsartan (Diovan -) 80 mg PO DAILY [facility] Last Admin: 06/06/18 09:43 Dose: 80 mg Warfarin Sodium (Coumadin -) 10 mg PO DAILY@1800 [facility] Last Admin: 06/04/18 17:42 Dose: 10 mg Gen: NAD at rest Heart: RRR Lung: Minimal scattered expiratory wheeze left chest Abd: soft, nontender Ext: no edema Laboratory Results - last 24 hr 06/06/18 06:00 PT with INR 37.30 H INR 3.30 H* A/P Cellulitis Acute Asthma Exacerbation CAD s/p AVR HTN Hyperlipidemia Obstructive Sleep Apnea - Would D/C with Prednisone 40mg OD x 5 - inhaled bronchodilators - singulair - CPAP at night - No smoking - No Pulmonary contraindication for D/C Dr Ernst Problem List - Problems (1) Cellulitis Code(s): L03.90 - CELLULITIS, UNSPECIFIED (2) Edema of left lower extremity Code(s): R60.0 - LOCALIZED EDEMA (3) Aortic regurgitation Code(s): I35.1 - NONRHEUMATIC AORTIC (VALVE) INSUFFICIENCY Qualifiers: Cardiac valve disease etiology: nonrheumatic Qualified Code(s): I35.1 - Nonrheumatic aortic (valve) insufficiency (4) Aortic stenosis Code(s): I35.0 - NONRHEUMATIC AORTIC (VALVE) STENOSIS Qualifiers: Cardiac valve disease etiology: nonrheumatic Qualified Code(s): I35.0 - Nonrheumatic aortic (valve) stenosis (5) Aortic valve replaced Code(s): Z95.2 - PRESENCE OF PROSTHETIC HEART VALVE (6) Asthma Code(s): J45.909 - UNSPECIFIED ASTHMA, UNCOMPLICATED Qualifiers: Asthma severity: severe persistent Asthma complication type: with acute exacerbation Qualified Code(s): J45.51 - Severe persistent asthma with (acute ) exacerbation (7) Blister Code(s): T14.8 - OTHER INJURY OF UNSPECIFIED BODY REGION * DO NOT USE * (8) Bronchitis Code(s): J40 - BRONCHITIS, NOT SPECIFIED ACUTE OR CHRONIC (9) Dyslipidemia Code(s): E78.5 - HYPERLIPIDEMIA, UNSPECIFIED (10) HTN (hypertension) Code(s): I10 - ESSENTIAL (PRIMARY) HYPERTENSION Qualifiers: Hypertension type: essential hypertension Qualified Code(s): I10 - Essential (primary) hypertension (11) Obstructive sleep apnea Code(s): G47.33 - OBSTRUCTIVE SLEEP APNEA (ADULT) (PEDIATRIC)
[2018-06-06] MEDS ORDERED: predniSONE 10 MG TABLET (UD) PO SCH (10:00)
--- NOTE | 2018-06-06 15:39 | DS ---
Physical Exam: SUBJECTIVE: Patient seen and examined this morning at bedside. Says foot pain has resolved and ankle swelling has decreased. Tolerated Bipap overnight. Ate dinner over night, having normal BM's. Denies abdominal pain, dysuria, hematuria, urinary urgency or frequency. Denies fevers, chills, chest pain, SOB, nausea, vomiting, numbness, tingling, weakness. OBJECTIVE: Vital Signs Period Temp Pulse Resp BP Sys/Fung Pulse Ox Last 24 Hr 97.8 F-98.8 F 56-59 20-20 108-146/48-92 95-100 PHYSICAL EXAM GENERAL: The patient is awake, alert, and fully oriented, in no acute distress. LUNGS: Breath sounds equal, Minimal wheezing present at bases HEART: Regular rate and rhythm, S1, S2, Mechanical valve click present ABDOMEN: Soft, nontender, nondistended, normoactive bowel sounds LOWER EXTREMITIES: Darkened, dry, flaky skin present on both feet, Ankle swelling has resolved b/l, No redness or erythema present. 2+ pulse present. Toe nails discoloration and detachment from skin noted b/l. Left ankle tenderness resolved. 5/5 muscle strength with dorsiflexion and plantarflexion. L4-S1 gross sensation intact b/l LABS Laboratory Results - last 24 hr 06/06/18 06:00 PT with INR 37.30 H INR 3.30 H* IMAGING: - Left ankle XRay: Since the prior study of 11/03/2017, again noted the is the ankle swelling with degenerative changes and old trauma about the ankle joint. There is calcaneal spurring and other arthritic changes seen in the tarsal bones. If one is concerned about osteomyelitis, three-phase bone scan or MR may be of help. - CXR: Median sternotomy wires and cardiac valve prosthesis noted. No acute focal airspace disease or pleural effusion. Normal cardiac silhouette size. HOSPITAL COURSE: Date of Admission:06/02/18 Date of Discharge: 06/06/18 Discharge Summary Reason For Visit: CELLULITIS Current Active Problems Ankle cellulitis (Acute) Cellulitis (Acute) Edema of left lower extremity (Acute) Condition: Improved - Instructions Diet, Activity, Other Instructions: You were admitted for Left lower extremity cellulitis and bilateral dermatitis. You completed a 3 day course of IV Antibiotics (Vancomycin). Please continue to apply Ammonium lactate to the wounds. Please monitor the skin surrounding your ankles and feet. If there is any increase in redness, pain or drainage, please follow up with your primary care physician. Please follow up with Podiatry (Dr. Quintero) in one week. Please follow up with dermatology (Dr. Braswell) in one week. You continued to have some wheezing while you were here. Singulair was added to your inhalers. Your symbicort dose was increased. Please continue to use as prescribed. Please continue to use your CPAP at night. Please follow up with your Manager Client Service (Dr. Dias) within one week. Please continue to use your home dose Cardizem 240mg to better control your blood pressure. Please monitor your blood pressure at home and follow up with your glacing machine tender (Dr. Hart) within one week. Continue coumadin at home dose 10 mg daily. Have INR check in 3 days with your doctor and further dosing as directed by him. Please resume all other home medications as prior to admission. Please rotate your body position as laying in the same position can cause skin damage and ulcers. Please follow up with your primary care physician and specialists as needed. If your symptoms worsen or if you experience fevers, chest pain or shortness breath, worsening pain, numbness or tingling, or any new concerns, please call 911 or return to the ED. Referrals: Annalise Braswell MD [Staff Physician] - 1 Week Parker Quintero MD [Staff Physician] - 1 Week Claudio Dias MD [Primary Care Provider] - 1 Week Paul Hart MD [Staff Physician] - 1 Week Disposition: HOME - Home Medications Comprehensive Discharge Medication List: Ambulatory Orders Albuterol Sulfate Inhaler - [Ventolin HFA Inhaler -] 1 - 2 inh PO Q4H PRN #1 inhaler 03/22/17 Warfarin Sodium 10 mg PO ASDIR 08/26/17 Tamsulosin HCl [Flomax -] 0.4 mg PO DAILY 08/30/17 Atorvastatin Calcium 40 mg PO DAILY 06/03/18 Warfarin Sodium 1 mg PO ASDIR 06/03/18 Ammonium Lactate Lotion [Lac-Hydrin 12] 1 applic TP BID #1 bottle 06/06/18 Budesonide/Formeterol Fumarate [SYMBICORT 160/4.5mcg -] 2 puff IH BID #1 inhaler 06/06/18 Diltiazem Cd [Cardizem Cd -] 240 mg PO DAILY #14 cap.cd.24h 06/06/18 Montelukast Na [Singulair -] 10 mg PO HS #14 tablet 06/06/18 Olmesartan Medoxomil [Benicar -] 40 mg PO DAILY 06/06/18 - Discharge Referral Referred to [facility] No
[2018-06-06] MEDS: WARFARIN NA 10 MG TABLET (FP) PO SCH (17:44)
[2018-06-06 18:21] VITALS: BP 137/73; PULSE 52; TEMP 98.3
== END 2018-06-06 18:51 | disposition home or self-care (01) | DRG 603 ==
LOC: JER 19:21 → J7W 22:18
PROVIDERS: ADMIT Internal Medicine; ATTEND Hospitalist
DX: L03.116 Cellulitis of left lower limb (principal); J45.901 Unspecified asthma with (acute) exacerbation; Z95.2 Presence of prosthetic heart valve; J45.909 Unspecified asthma, uncomplicated; K44.9 Diaphragmatic hernia without obstruction or gangrene; Z91.013 Allergy to seafood; I25.10 Atherosclerotic heart disease of native coronary artery without angina pectoris; I10 Essential (primary) hypertension; E78.5 Hyperlipidemia, unspecified; K21.9 Gastro-esophageal reflux disease without esophagitis; C61 Malignant neoplasm of prostate; E66.9 Obesity, unspecified; Z68.35 Body mass index [BMI] 35.0-35.9, adult; G47.33 Obstructive sleep apnea (adult) (pediatric)
CPT/HCPCS: 36415; 71046-TC-FY; 73610-TC-LT-FY; 80048; 80053; 83735; 84100; 85025; 85027; 85610; 93005; 93010; 94640; 94660; 99283-25; G0480; J7620

== ENCOUNTER 2018-11-16 16:47 | Emergency (ER) | payer BC, OTHER ==
--- NOTE | 2018-11-16 17:02 | PDOC ---
Rapid Medical Evaluation Medical Evaluation: Allergies Allergy/AdvReac Type Severity Reaction Status Date / Time aspirin Allergy Verified 06/02/18 19:53 NSAIDS (Non-Steroidal Allergy Verified 06/02/18 19:53 Anti-Inflamma crabs Allergy Uncoded 06/02/18 19:53 lobsters Allergy Uncoded 06/02/18 19:53 shrimp Allergy Uncoded 06/02/18 19:53 I have performed a brief in-person evaluation of this patient. The patient presents with a chief complaint of: Is due for scheduled colonoscopy tomorrow; Dr. Frias is performed procedure; was told to come into ED to get pre-op labs and to get bridged from Coumadin to Heparin Pertinent physical exam findings: In NAD I have ordered the following: Labs The patient will proceed to the ED for further evaluation. 11/16/18 17:00 Discharge Disposition - Referrals Referrals: Claduio Dias MD [Primary Care Provider] - - Patient Instructions - Post Discharge Activity
[2018-11-16 17:06] VITALS: TEMP 99.5; BMI 36.5
--- NOTE | 2018-11-16 17:49 | PDOC ---
History of Present Illness - General Chief Complaint: Pain, Acute Stated Complaint: PCP SENT Time Seen by Provider: 11/16/18 17:00 History Source: Patient Exam Limitations: No Limitations - History of Present Illness Initial Comments: 11/16/18 17:49 CHIEF COMPLAINT: Sent for admission HPI: This is a 63-year-old male with a history of asthma/nasal polyps/ASA sensitivity, CAD, aortic valve replacement on warfarin 10 mg daily, HTN, HLD, sleep apnea, and multiple episodes of cellulitis. He has been having bright red rectal bleeding after bowel movements and is scheduled for a colonoscopy with Dr. Ghosh. Per Dr. Ghosh instructions, patient is to be admitted for heparin pending the procedure. In addition, the patient complains of one day of body aches, headaches, cough productive of walker sputum, and dyspnea. He has been using his albuterol inhaler at home without relief. He denies fevers/chills. He was not vaccinated for influenza. Surgical history: Bilateral knee replacements PCP is Dr. Dias REVIEW OF SYSTEMS: GENERAL/CONSTITUTIONAL: Fatigue, bodyaches. No fever or chills. No weakness. No weight change. HEAD, EYES, EARS, NOSE AND THROAT: No change in vision. No ear pain or discharge. No sore throat. CARDIOVASCULAR: No chest pain or palpitations. RESPIRATORY: Cough productive of walker sputum. Dyspnea and wheezing. GASTROINTESTINAL: No nausea, vomiting, diarrhea or constipation. GENITOURINARY: No dysuria, frequency, or change in urination. MUSCULOSKELETAL: No joint or muscle swelling or pain. No neck or back pain. SKIN: No rash or easy bruising. NEUROLOGIC: No headache, vertigo, loss of consciousness, or loss of sensation. PSYCHIATRIC: No depression or anxiety. ENDOCRINE: No increased thirst. No abnormal weight change. HEMATOLOGIC/LYMPHATIC: On warfarin s/p aortic valve replacement. ALLERGIC/IMMUNOLOGIC: No hives or skin allergy. No latex allergy. PHYSICAL EXAM: GENERAL: The patient is awake, alert, and fully oriented, in no acute distress. HEAD: Normal with no signs of trauma. ENT: Pupils equal, round and reactive to light, extraocular movements intact, sclera anicteric, conjunctiva clear. Neck supple. LUNGS: Expiratory wheezing in ll lung sheehan. No tachypnea. Speaking in full sentences. No respiratory distress or use of accessory muscles. CV: RRR, S1/S2, no MRG. Cap refill < 2 sec. ABDOMEN: Soft, non-distended, non-tender. EXTREMITIES: Normal range of motion, no edema. NEUROLOGICAL: Normal speech, normal gait. CN II-XII grossly intact. PSYCH: Normal mood, normal affect. SKIN: Warm, dry, normal turgor, no rashes or lesions noted. Past History - Past Medical History Allergies/Adverse Reactions: Allergies Allergy/AdvReac Type Severity Reaction Status Date / Time aspirin Allergy Verified 06/02/18 19:53 NSAIDS (Non-Steroidal Allergy Verified 06/02/18 19:53 Anti-Inflamma crabs Allergy Uncoded 06/02/18 19:53 lobsters Allergy Uncoded 06/02/18 19:53 shrimp Allergy Uncoded 06/02/18 19:53 Home Medications: Ambulatory Orders Albuterol Sulfate Inhaler - [Ventolin HFA Inhaler -] 1 - 2 inh PO Q4H PRN #1 inhaler 03/22/17 Warfarin Sodium 10 mg PO ASDIR 08/26/17 Tamsulosin HCl [Flomax -] 0.4 mg PO DAILY 08/30/17 Atorvastatin Calcium 40 mg PO DAILY 06/03/18 Budesonide/Formeterol Fumarate [SYMBICORT 160/4.5mcg -] 2 puff IH BID #1 inhaler 06/06/18 Diltiazem Cd [Cardizem Cd -] 240 mg PO DAILY #14 cap.cd.24h 06/06/18 Montelukast Na [Singulair -] 10 mg PO HS #14 tablet 06/06/18 Olmesartan Medoxomil [Benicar -] 40 mg PO DAILY 06/06/18 Anemia: No Asthma: Yes Cancer: Yes (Prostate w Radiation) Cardiac Disorders: Yes (aortic valve replacement) COPD: No Dementia: No GI Disorders: Yes (Peptic ulcer, GERD) HTN: Yes Hypercholesterolemia: Yes Seizures: No Thyroid Disease: No - Surgical History Cardiac Surgery: Yes (AORTIC VALVE) Neurologic Surgery: No Orthopedic Surgery: Yes (B/L TOTAL KNEE 05/12) - Immunization History Immunization Up to Date: Yes - Suicide/Smoking/Psychosocial Hx Smoking Status: No Smoking History: Never smoked Have you smoked in the past 12 months: No Number of Cigarettes Smoked Daily: 0 Information on smoking cessation initiated: No Hx Alcohol Use: No Drug/Substance Use Hx: No Substance Use Type: Alcohol Hx Substance Use Treatment: No *Physical Exam - Vital Signs Last Vital Signs Temp Pulse Resp BP Pulse Ox 99.5 F 98 H 16 121/63 95 11/16/18 17:02 11/16/18 17:02 11/16/18 17:02 11/16/18 17:02 11/16/18 17:02 Moderate Sedation - Procedure Monitoring Vital Signs: Procedure Monitoring Vital Signs Temperature 99.5 F 11/16/18 17:02 Pulse Rate 98 H 11/16/18 17:02 Respiratory Rate 16 11/16/18 17:02 Blood Pressure 121/63 11/16/18 17:02 O2 Sat by Pulse Oximetry (%) 95 11/16/18 17:02 ED Treatment Course - LABORATORY CBC & Chemistry Diagram: 11/16/18 17:40 11/16/18 17:40 Medical Decision Making - Medical Decision Making 11/16/18 18:20 A/P: 63-year-old male slated for colonoscopy, requiring admission for heparin bridge. Also with asthma exacerbation and URI symptoms. 1. EKG 2. Chest x-ray 3. Labs including CBC, CMP, PT/INR, type and screen, influenza swab 4. DuoNeb followed by albuterol nebs 5. Admit 11/16/18 18:39 INR 1.2, heparin gtt started *DC/Admit/Observation/Transfer Diagnosis at time of Disposition: Rectal bleeding, Cough Asthma exacerbation Qualifiers: Asthma severity: mild Asthma persistence: intermittent Qualified Code(s): J45.21 - Mild intermittent asthma with (acute) exacerbation - Discharge Dispostion Condition at time of disposition: Guarded Decision to Admit order: Yes - Referrals Referrals: Claudio Dias MD [Primary Care Provider] - - Patient Instructions - Post Discharge Activity
[2018-11-16] MEDS ORDERED: HEPARIN NA (PORCINE) 5,000 UNITS/ML 1ML VIAL IVPUSH PRN ×2 (17:51)
[2018-11-16] MEDS ORDERED: ALBUTEROL SO4 2.5/IPRATROPIUM 0.5 INH SOL 3 ML VIAL.NEB. NEB ONE ×2 (17:55→18:15)
[2018-11-16] MEDS ORDERED: ACETAMINOPHEN 500 MG TABLET (FP) PO ONE (17:56)
[2018-11-16] MEDS ORDERED: HEPARIN SOD,PORK IN 0.45% NACL 25,000 UNITS/500 ML INFUS.BAG IVPB SCH (18:00)
[2018-11-16 18:09] LABS: BASO % 0.5 % (0-2.0); HEMATOCRIT 43.2 % (35.4-49); HEMOGLOBIN 14.2 GM/dL (11.7-16.9); LYMPH % 20.3 % (8-40); MCH 29.9 pg (25.7-33.7); MEAN CELL VOLUME 90.7 fl (80-96); MEAN PLT VOLUME 9.5 fl (7.5-11.1); MONO % 13.6 % (3.8-10.2); NEUT % 62.6 % (42.8-82.8); PLATELET COUNT 157 K/MM3 (134-434); RBC 4.76 M/mm3 (4.00-5.60); RDW 14.2 % (11.9-15.9); WHITE BLOOD COUNT 4.6 K/mm3 (4.0-10.0)
[2018-11-16] MEDS ORDERED: HEPARIN NA (PORCINE) 5,000 UNITS/ML 1ML VIAL ONE (18:15)
[2018-11-16] MEDS ORDERED: HEPARIN INFUSION - 25,000 UNITS/500 ML INFUS.BAG IVPB ONE (18:15)
[2018-11-16] MEDS ORDERED: ALBUTEROL SO4 0.083% IH SOL 2.5 MG/3 ML VIAL.NEB. NEB ONE ×3 (18:15→22:22)
[2018-11-16] MEDS: ALBUTEROL SO4 0.083% IH SOL 2.5 MG/3 ML VIAL.NEB. NEB SCH ×2 (18:20→20:38)
[2018-11-16 18:23] LABS: ALBUMIN 3.6 g/dl (3.4-5.0); ALK PHOS 85 U/L (45-117); ANION GAP 7 MMOL/L (8-16); BILIRUBIN,TOTAL 0.8 mg/dL (0.2-1); BLOOD UREA NITROGEN 15 mg/dL (7-18); CALCIUM 9.1 mg/dL (8.5-10.1); CHLORIDE 101 mmol/L (98-107); CO2 29 mmol/L (21-32); CREATININE 1.1 mg/dL (0.55-1.3); GLUCOSE,RANDOM 104 mg/dL (74-106); SGOT/AST 25 U/L (15-37); SGPT/ALT 45 U/L (13-61); SODIUM 137 mmol/L (136-145); TOT PROT 6.9 g/dl (6.4-8.2)
[2018-11-16 18:38] LABS: INR 1.22 (0.83-1.09); PROTHROMBIN TIME (PATIENT) 14.4 SEC (9.7-13.0)
[2018-11-16] MEDS ORDERED: ACETAMINOPHEN 325 MG TABLET (FP) ONE (18:50)
[2018-11-16 19:27] VITALS: BP 131/98; PULSE 101
[2018-11-16] MEDS ORDERED: OSELTAMIVIR PHOSPHATE 75 MG CAPSULE PO SCH (22:00)
[2018-11-16] MEDS ORDERED: WARFARIN NA 10 MG TABLET (FP) PO ONE (22:49)
[2018-11-16] MEDS ORDERED: OSELTAMIVIR PHOSPHATE 75 MG CAPSULE ONE (23:01)
[2018-11-16] MEDS ORDERED: WARFARIN NA 5 MG TABLET (UD) ONE (23:01)
--- NOTE | 2018-11-16 23:05 | PDOC ---
*Physical Exam - Vital Signs Last Vital Signs Temp Pulse Resp BP Pulse Ox 99.5 F 101 H 20 131/98 98 11/16/18 17:02 11/16/18 18:50 11/16/18 18:50 11/16/18 18:50 11/16/18 18:50 ED Treatment Course - LABORATORY CBC & Chemistry Diagram: 11/16/18 17:40 11/16/18 17:40 - ADDITIONAL ORDERS Additional order review: Laboratory Results 11/16/18 11/16/18 11/16/18 18:45 17:40 17:40 PT with INR INR PTT (Actin FS) 31.0 Sodium 137 Potassium 4.0 Chloride 101 Carbon Dioxide 29 Anion Gap 7 L BUN 15 Creatinine 1.1 Creat Clearance w eGFR > 60 Random Glucose 104 Calcium 9.1 Total Bilirubin 0.8 AST 25 ALT 45 Alkaline Phosphatase 85 Total Protein 6.9 Albumin 3.6 Blood Type Cancelled Antibody Screen Cancelled 11/16/18 17:40 PT with INR 14.40 H INR 1.22 H PTT (Actin FS) Sodium Potassium Chloride Carbon Dioxide Anion Gap BUN Creatinine Creat Clearance w eGFR Random Glucose Calcium Total Bilirubin AST ALT Alkaline Phosphatase Total Protein Albumin Blood Type Antibody Screen 11/16/18 17:40 RBC 4.76 MCV 90.7 MCHC 33.0 RDW 14.2 D MPV 9.5 Neutrophils % 62.6 Lymphocytes % 20.3 Monocytes % 13.6 H D Eosinophils % 3.0 D Basophils % 0.5 - Medications Given in the ED: ED Medications Discontinued Medications Generic Name Dose Route Start Last Admin Trade Name Freq PRN Reason Stop Dose Admin Acetaminophen 975 mg 11/16/18 17:56 11/16/18 18:50 Tylenol - PO 11/16/18 17:57 975 mg ONCE ONE Administration Albuterol Sulfate 1 amp 11/16/18 18:00 11/16/18 20:38 Ventolin 0.083% Nebulizer Soln - NEB 11/16/18 18:46 1 amp Q15M ALEXANDRA Administration Albuterol/Ipratropium 1 amp 11/16/18 17:55 11/16/18 18:20 Duoneb - NEB 11/16/18 17:56 1 amp ONCE ONE Administration Medical Decision Making - Medical Decision Making 11/16/18 22:52 The patient insists on leaving the emergency dept and is signing out against medical advice. The patient understands the risks and complications that may result from the refusal of medical care and admission which includes cardiac arrest, severe infection, dehydration, myocardial infarction, arrhythmias, stroke, respiratory failure, electrolyte derangements, coma, pancreatitis, liver failure, bleeding, severe disability and . The patient has the mental capacity of understanding the risks of refusing care and is capable of making an informed decision. The patient was instructed to return to the emergency department should [x] change [x] mind regarding medical care or should [x] condition worsen. The patient signed the Against Medical Advice form. Hospitalist Dr. Calvillo is aware. Rx for Tamiflu. Coumadin 10mg orally now. *DC/Admit/Observation/Transfer Diagnosis at time of Disposition: Rectal bleeding, Cough Asthma exacerbation Qualifiers: Asthma severity: mild Asthma persistence: intermittent Qualified Code(s): J45.21 - Mild intermittent asthma with (acute) exacerbation - Discharge Dispostion Disposition: AGAINST MEDICAL ADVICE Condition at time of disposition: Guarded - Prescriptions Prescriptions: Oseltamivir Phosphate [Tamiflu -] 75 mg PO BID #10 capsule - Referrals Referrals: Claudio Dias MD [Primary Care Provider] - - Patient Instructions Additional Instructions: Your leaving the hospital AGAINST MEDICAL ADVICE. It is not recommended that she leave the hospital. These return to emergency department for continued evaluation for any concerns. Take Coumadin as previously prescribed. Take Tamiflu 75 mg twice a day for the next 5 days. Return to the emergency department for dizziness, change in speech, blurry vision, shortness of breath, chest pain, numbness or tingling to any part of your body or any other concerns. Make an appointment to follow-up with her rougher machine operator Dr. Brooke finley GI specialist Dr. Haq for continued evaluation. - Post Discharge Activity
--- NOTE | 2018-11-16 23:31 | HOSP ---
Subjective - Review of Symptoms Events since last encounter: PT endorsed as an admission for C-scope in the morning. As per verbal reports from ED physician, pt had stopped coumadin 5days ago in preparation for colonoscopy and presented to ED for transition to heparin drip and bowel prep prior to procedure. In ED pt noted to be wheezing and Flu screen returned positive FLU A. Pt placed on isolation. Tamifly rxed. Write of this noted spoke with Dr. Ghosh and informed him of the pts clinical status. C-scope cancelled and ED was informed to contact director of campus recreation on recommendations for restarting coumadin. plan was formulated between ED provider and Dr. Cox to admit pt on heparin and bridge him back to coumadin. pt decided to sign out AMA, since he would be more comfortable in his home. Physical Examination Vital Signs: Vital Signs Temperature 99.5 F 11/16/18 17:02 Pulse Rate 101 H 11/16/18 18:50 Respiratory Rate 20 11/16/18 18:50 Blood Pressure 131/98 11/16/18 18:50 O2 Sat by Pulse Oximetry (%) 98 11/16/18 18:50 Labs: CBC, BMP 11/16/18 17:40 11/16/18 17:40
== END 2018-11-16 23:50 | disposition left against medical advice (07) ==
LOC: JER 16:47 → JERBED 19:19 → UNDOADMIN 19:19 → JER 23:50
DX: K62.5 Hemorrhage of anus and rectum (principal); J45.21 Mild intermittent asthma with (acute) exacerbation; R05 Cough; I10 Essential (primary) hypertension; Z96.653 Presence of artificial knee joint, bilateral; K21.9 Gastro-esophageal reflux disease without esophagitis; E78.00 Pure hypercholesterolemia, unspecified
CPT/HCPCS: 36415; 80053; 85025; 85610; 85730; 87804; 99283-25; J1644